=== PATIENT | male | born 1935 | race African-American/Black ===

== ENCOUNTER 2019-11-13 12:30 | Inpatient (IN) | payer MEDICARE, OTHER ==
[~2019-11-13] VITALS: Ht 190.5 cm; Wt 125.2 kg
[2019-11-13] MEDS ORDERED: SODIUM CHLORIDE 0.9% 1,000 ML IV ONE (12:57)
[2019-11-13] MEDS ORDERED: KETOROLAC 30MG/ML VIAL IV STA (12:57)
[2019-11-13] MEDS ORDERED: ONDANSETRON HCL 4MG/2ML INJ IV STA (13:45)
[2019-11-13] MEDS ORDERED: MORPHINE SULFATE 4 MG/ML CPJ (NOT FOR IM USE) IV STA (13:45)
[2019-11-13 14:36] LABS: HEMOGLOBIN. 10.6 g/dL (14.0-18.0); MEAN CORPUSCULAR HEMOGLOBIN 29.3 pg (28.0-32.0); MEAN CORPUSCULAR VOLUME 88.9 fL (80.0-94.0); MEAN PLATELET VOLUME 9.3 fl (7.4-10.4); PLATELET 180 x1000/uL (130-400); RED CELL DISTRIBUTION WIDTH 14.7 % (11.6-14.6)
[2019-11-13 14:44] LABS: CHLORIDE 111 mEq/L (98-107)
[2019-11-13 14:51] LABS: INR 1.1
[2019-11-13 14:57] LABS: PLATELET ESTIMATE NORMAL
[2019-11-13 16:00] VITALS: BP 184/94
[2019-11-13] MEDS ORDERED: GLIP10TA10 MT (16:46)
[2019-11-13] MEDS ORDERED: OLME1TAB82 MT (16:46)
[2019-11-13] MEDS ORDERED: SIMV-46 MT (16:46)
[2019-11-13] MEDS ORDERED: LINA5TAB MT (16:46)
[2019-11-13] MEDS ORDERED: METF-816 MT (16:46)
[2019-11-13] MEDS ORDERED: ALLO100T MT (16:46)
[2019-11-13 16:53] VITALS: BP 134/90
[2019-11-13] MEDS ORDERED: DIPHENHYDRAMINE 50MG/ML VIAL IV PRN (17:15)
[2019-11-13] MEDS ORDERED: DEXTROSE 50% WATER 50ML SYRINGE IV PRN (17:15)
[2019-11-13] MEDS ORDERED: GUAIFENESIN 200MG/10ML SUGAR FREE UDC PO PRN (17:15)
[2019-11-13] MEDS ORDERED: MAGNESIUM/ALUMINUM HYDROXIDE/SIMETHICONE 30ML UDC PO PRN (17:15)
[2019-11-13] MEDS ORDERED: CLONIDINE 0.1MG TABLET PO PRN (17:15)
[2019-11-13] MEDS ORDERED: ACETAMINOPHEN 325MG TABLET PO PRN (17:15)
[2019-11-13] MEDS: BLOOD SUGAR DIAGNOSTIC STRIP TEST SCH ×2 (17:48→21:48)
[2019-11-13] MEDS: INSULIN LISPRO 100 UNITS/ML SUBCUT SCH ×2 (17:48→21:35)
[2019-11-13] MEDS ORDERED: BRIM5DRO EACHEYE (19:25)
[2019-11-13] MEDS ORDERED: XALAO EACHEYE (19:25)
[2019-11-13 20:00] VITALS: BP 137/78
[2019-11-13] MEDS: HYDROMORPHONE HCL/PF 2MG/ML CPJ IV PRN (21:48)
[2019-11-14] VITALS: BP 127/65
[2019-11-14] MEDS: DEXT 5%/0.45% NACL 1000ML 1,000 ML IV SCH ×2 (01:08→21:01)
[2019-11-14] MEDS: SODIUM CHLORIDE 0.9% INJ 3ML FLUSH IVF SCH ×4 (01:24→21:16)
[2019-11-14 04:00] VITALS: BP 124/67
[2019-11-14] MEDS: BLOOD SUGAR DIAGNOSTIC STRIP TEST SCH ×4 (07:20→21:01)
[2019-11-14] MEDS: INSULIN LISPRO 100 UNITS/ML SUBCUT SCH ×4 (07:50→21:00)
[2019-11-14 08:00] VITALS: BP 150/68
[2019-11-14] MEDS: FAMOTIDINE 20MG/2ML VIAL IV SCH (09:46)
[2019-11-14 12:00] VITALS: BP 121/70
[2019-11-14] MEDS: HYDROMORPHONE HCL/PF 2MG/ML CPJ IV PRN (14:02)
[2019-11-14] MEDS: BRIMONIDINE 0.2% OPHTH DROPS 5ML BOTHEYE SCH ×2 (14:03→21:16)
[2019-11-14 16:00] VITALS: BP 152/81
[2019-11-14 20:00] VITALS: BP 158/60
[2019-11-14] MEDS: LATANOPROST 0.005% OPHTH DROPS 2.5ML BOTHEYE SCH (21:01)
[2019-11-15] VITALS: BP 155/77
[2019-11-15 04:00] VITALS: BP 154/80
[2019-11-15] MEDS: SODIUM CHLORIDE 0.9% INJ 3ML FLUSH IVF SCH ×2 (05:34→14:42)
[2019-11-15] MEDS: BRIMONIDINE 0.2% OPHTH DROPS 5ML BOTHEYE SCH ×2 (05:34→14:42)
[2019-11-15] MEDS ORDERED: BUPIVACAINE HCL/PF 0.25% (2.5MG/ML) 10ML ONE (05:47)
[2019-11-15] MEDS ORDERED: VANCOMYCIN HCL 500 MG/VIAL ONE (05:48)
[2019-11-15] MEDS: BLOOD SUGAR DIAGNOSTIC STRIP TEST SCH ×3 (06:41→20:47)
[2019-11-15] MEDS ORDERED: MIDAZOLAM HCL 2 MG/2 ML VIAL ONE (07:03)
[2019-11-15] MEDS ORDERED: ONDANSETRON HCL 4MG/2ML INJ ONE (07:03)
[2019-11-15] MEDS ORDERED: DEXAMETHASONE 4MG/ML 1ML VIAL ONE (07:03)
[2019-11-15] MEDS ORDERED: PROPOFOL 200MG/20ML VIAL IV ONE (07:03)
[2019-11-15] MEDS ORDERED: FENTANYL CITRATE/PF 50MCG/ML 2ML VIAL ONE (07:03)
[2019-11-15] MEDS ORDERED: ROCURONIUM BROMIDE 10MG/ML VIAL 5ML IV ONE (07:27)
[2019-11-15] MEDS: INSULIN LISPRO 100 UNITS/ML SUBCUT SCH ×3 (07:50→21:23)
[2019-11-15] MEDS ORDERED: MEPERIDINE HCL/PF 25MG/ML CPJ IV PRN (08:15)
[2019-11-15] MEDS ORDERED: ONDANSETRON HCL 4MG/2ML INJ IV PRN (08:15)
[2019-11-15] MEDS ORDERED: HYDROMORPHONE HCL/PF 2MG/ML CPJ IV PRN ×2 (08:15→18:30)
[2019-11-15] MEDS ORDERED: LABETALOL 5MG/ML SYR 20 MG/4 ML SYRINGE IV PRN (08:15)
[2019-11-15] MEDS ORDERED: GLYCOPYRROLATE 0.2 MG/ML 2ML VIAL ONE (08:23)
[2019-11-15] MEDS ORDERED: NEOSTIGMINE METHYLSULFATE 1MG/ML 10 ML VIAL ONE (08:23)
[2019-11-15] MEDS ORDERED: BISACODYL 10MG SUPP PR PRN (08:30)
[2019-11-15] MEDS ORDERED: HYDROCODONE/ACETAMINOPHEN 5/325MG TABLET PO PRN (08:30)
[2019-11-15] MEDS ORDERED: EPHEDRINE SULFATE 50MG/ML VIAL ONE (08:47)
[2019-11-15] MEDS ORDERED: SODIUM CHLORIDE 0.9% 10ML VIAL ONE (08:47)
[2019-11-15] MEDS: DOCUSATE SODIUM 250MG CAPSULE PO SCH (09:00)
[2019-11-15] MEDS: FAMOTIDINE 20MG/2ML VIAL IV SCH (09:00)
[2019-11-15] MEDS: CEFAZOLIN 2,000 MG in DEXT 5% WATER 100 ML IV SCH ×2 (10:00→17:34)
[2019-11-15] MEDS ORDERED: POLYETHYLENE GLYCOL 3350 (17GM) 1 DOSE PACK PO SCH (10:45)
[2019-11-15 12:00] VITALS: BP 157/90
[2019-11-15] MEDS: HYDROMORPHONE HCL/PF 2MG/ML CPJ IV PRN (13:29)
[2019-11-15 16:00] VITALS: BP 164/85
[2019-11-15] MEDS ORDERED: DEXTROSE 50% WATER 50ML SYRINGE IV PRN (18:15)
[2019-11-15] MEDS: ONDANSETRON HCL 4MG/2ML INJ IV PRN (18:29)
[2019-11-15 20:00] VITALS: BP 155/87
[2019-11-15] MEDS ORDERED: BISACODYL 10MG SUPP PR NR (20:30)
[2019-11-15] MEDS: LATANOPROST 0.005% OPHTH DROPS 2.5ML BOTHEYE SCH (20:47)
[2019-11-16] VITALS: BP 124/69
[2019-11-16] MEDS: CEFAZOLIN 2,000 MG in DEXT 5% WATER 100 ML IV SCH ×4 (02:37→23:41)
[2019-11-16] MEDS: ONDANSETRON HCL 4MG/2ML INJ IV PRN (03:11)
[2019-11-16 04:00] VITALS: BP 127/77
[2019-11-16] MEDS: DEXT 5%/0.45% NACL 1000ML 1,000 ML IV SCH (04:58)
[2019-11-16] MEDS: BLOOD SUGAR DIAGNOSTIC STRIP TEST SCH ×4 (06:20→21:58)
[2019-11-16] MEDS: DOCUSATE SODIUM 250MG CAPSULE PO SCH (09:00)
[2019-11-16] MEDS: PANTOPRAZOLE SODIUM 40 MG/VIAL IV SCH (09:00)
[2019-11-16] MEDS: INSULIN LISPRO 100 UNITS/ML SUBCUT SCH ×4 (11:47→21:00)
[2019-11-16 12:00] VITALS: BP 109/63
[2019-11-16 13:42] LABS: BASOPHILS % 0.5 % (0.0-2.0); HEMATOCRIT. 31.2 % (42.0-52.0); HEMOGLOBIN. 10.1 g/dL (14.0-18.0); LYMPHOCYTES % 7.1 % (20.0-50.0); MEAN CORPUSCULAR HEMOGLOBIN 29.1 pg (28.0-32.0); MEAN CORPUSCULAR VOLUME 89.7 fL (80.0-94.0); MEAN PLATELET VOLUME 9.4 fl (7.4-10.4); NEUTROPHILS % 84.4 % (40.0-76.0); PLATELET 168 x1000/uL (130-400); RED BLOOD CELL COUNT 3.48 mill/uL (4.7-6.1)
[2019-11-16 13:48] LABS: CHLORIDE 109 mEq/L (98-107)
[2019-11-16] MEDS: IPRATROPIUM/ALBUTEROL 0.5-3(2.5)MG/3ML NEB HHN SCH ×2 (15:26→21:24)
[2019-11-16 16:00] VITALS: BP 122/57
[2019-11-16] MEDS ORDERED: POTASSIUM CHLORIDE INJ 40 MEQ in DEXT 5% WATER 500 ML IV ONE (16:00)
[2019-11-16 20:00] VITALS: BP 114/68
[2019-11-16] MEDS: LATANOPROST 0.005% OPHTH DROPS 2.5ML BOTHEYE SCH (20:51)
[2019-11-17] VITALS (44 sets, daily range): BP systolic 85–168; BP diastolic 44–110
[2019-11-17] MEDS: IPRATROPIUM/ALBUTEROL 0.5-3(2.5)MG/3ML NEB HHN SCH ×5 (01:45→20:15)
[2019-11-17] MEDS: CEFAZOLIN 2,000 MG in DEXT 5% WATER 100 ML IV SCH ×2 (01:52→11:35)
[2019-11-17] MEDS: BLOOD SUGAR DIAGNOSTIC STRIP TEST SCH ×4 (07:37→21:11)
[2019-11-17] MEDS: PANTOPRAZOLE SODIUM 40 MG/VIAL IV SCH (08:51)
[2019-11-17] MEDS: DOCUSATE SODIUM 250MG CAPSULE PO SCH (09:00)
[2019-11-17] MEDS: INSULIN LISPRO 100 UNITS/ML SUBCUT SCH ×4 (09:20→22:01)
[2019-11-17] MEDS ORDERED: SODIUM CHLORIDE 0.9% 500 ML IV ONE ×2 (10:15→12:15)
[2019-11-17 10:52] LABS: BG BASE EXCESS -4.1 mmol/L (-2.0-2.0); BG CARBOXYHEMOGLOBIN 0.3 % (0.5-1.5); BG DEOXYHEMOGLOBIN 6.6 % (0.0-5.0); BG FRACTION INSPIRED OXYGEN 36; BG HCO3 ACT 19.5 mmol/L (22.0-26.0); BG METHEMOGLOBIN 0.1 % (0.0-1.5); BG OXYGEN SATURATION 93.4 % (92.0-98.5); BG PCO2 30.6 mmHg (35.0-45.0); BG PH 7.423 (7.350-7.450); BG PO2 75.9 mmHg (75.0-100.0); BG SAMPLE SITE LEFT BRACHIAL; BG TOTAL HEMOGLOBIN 9.8 g/dL (12.0-18.0); BG VENT MODE NASAL CANNULA
[2019-11-17] MEDS: DEXT 5%/0.45% NACL 1000ML 1,000 ML IV SCH ×3 (11:35→18:59)
[2019-11-17] MEDS ORDERED: POTASSIUM CHLORIDE 20MEQ TABLET SR PO NR ×2 (11:45→15:45)
[2019-11-17 12:01] LABS: BG BASE EXCESS -1.8 mmol/L (-2.0-2.0); BG CARBOXYHEMOGLOBIN 0.3 % (0.5-1.5); BG DEOXYHEMOGLOBIN 6.2 % (0.0-5.0); BG FRACTION INSPIRED OXYGEN 40; BG HCO3 ACT 21.8 mmol/L (22.0-26.0); BG METHEMOGLOBIN 0.1 % (0.0-1.5); BG OXYGEN SATURATION 93.8 % (92.0-98.5); BG OXYHEMOGLOBIN 93.4 % (94.0-97.0); BG PCO2 32.7 mmHg (35.0-45.0); BG PH 7.442 (7.350-7.450); BG PO2 76.6 mmHg (75.0-100.0); BG SAMPLE SITE RIGHT BRACHIAL; BG VENT MODE NASAL CANNULA
[2019-11-17] MEDS ORDERED: ENOXAPARIN 40MG/0.4ML SYR SUBCUT SCH (15:00)
[2019-11-17] MEDS: ASPIRIN 81MG TABLET PO SCH (15:01)
[2019-11-17] MEDS: DILTIAZEM HCL 60MG TABLET PO SCH ×2 (15:02→21:11)
[2019-11-17 15:19] LABS: BASOPHILS % 0.3 % (0.0-2.0); EOSINOPHILS % 0.1 % (0.0-5.0); HEMATOCRIT. 29.7 % (42.0-52.0); HEMOGLOBIN. 9.7 g/dL (14.0-18.0); LYMPHOCYTES % 9.9 % (20.0-50.0); MEAN CORPUSCULAR HEMOGLOBIN 29.4 pg (28.0-32.0); MEAN PLATELET VOLUME 9.7 fl (7.4-10.4); MONOCYTES % 10.3 % (2.0-8.0); NEUTROPHILS % 79.4 % (40.0-76.0); PLATELET 149 x1000/uL (130-400); RED CELL DISTRIBUTION WIDTH 15.3 % (11.6-14.6)
[2019-11-17 15:25] LABS: PHOSPHORUS 3.1 mg/dL (2.5-4.9)
[2019-11-17] MEDS: LATANOPROST 0.005% OPHTH DROPS 2.5ML BOTHEYE SCH (21:11)
[2019-11-17] MEDS ORDERED: DILTIAZEM HCL 60MG TABLET PO SCH (22:00)
[2019-11-18] VITALS (69 sets, daily range): BP systolic 101–157; BP diastolic 47–116
[2019-11-18] MEDS: IPRATROPIUM/ALBUTEROL 0.5-3(2.5)MG/3ML NEB HHN SCH ×5 (01:58→20:53)
[2019-11-18] MEDS: DEXT 5%/0.45% NACL 1000ML 1,000 ML IV SCH ×2 (05:11→05:12)
[2019-11-18] MEDS: DILTIAZEM HCL 60MG TABLET PO SCH ×3 (05:36→21:01)
[2019-11-18 06:19] LABS: BASOPHILS % 0.6 % (0.0-2.0); EOSINOPHILS % 1.5 % (0.0-5.0); HEMATOCRIT. 28.1 % (42.0-52.0); HEMOGLOBIN. 9.4 g/dL (14.0-18.0); LYMPHOCYTES % 12.9 % (20.0-50.0); MEAN CORPUSCULAR HEMOGLOBIN 29.8 pg (28.0-32.0); MEAN CORPUSCULAR VOLUME 89.1 fL (80.0-94.0); MEAN PLATELET VOLUME 9.8 fl (7.4-10.4); MONOCYTES % 10.7 % (2.0-8.0); NEUTROPHILS % 74.3 % (40.0-76.0); PLATELET 147 x1000/uL (130-400); RED BLOOD CELL COUNT 3.16 mill/uL (4.7-6.1); RED CELL DISTRIBUTION WIDTH 14.9 % (11.6-14.6)
[2019-11-18 06:21] LABS: CHLORIDE 112 mEq/L (98-107)
[2019-11-18 06:26] LABS: PHOSPHORUS 2.1 mg/dL (2.5-4.9)
[2019-11-18] MEDS: BLOOD SUGAR DIAGNOSTIC STRIP TEST SCH ×4 (08:00→21:01)
[2019-11-18] MEDS: INSULIN LISPRO 100 UNITS/ML SUBCUT SCH ×4 (08:13→21:25)
[2019-11-18] MEDS ORDERED: MAGNESIUM 1 G PREMIX 100 ML IV NR (09:00)
[2019-11-18] MEDS ORDERED: POTASSIUM CHLORIDE INJ 40 MEQ in DEXT 5% WATER 250 ML IV NR (09:30)
[2019-11-18] MEDS: PANTOPRAZOLE SODIUM 40 MG/VIAL IV SCH (10:39)
[2019-11-18] MEDS: DOCUSATE SODIUM 250MG CAPSULE PO SCH (10:39)
[2019-11-18] MEDS: ASPIRIN 81MG TABLET PO SCH (10:40)
[2019-11-18] MEDS: INSULIN GLARGINE UD 100 UNITS/ML SYR SUBCUT SCH (10:41)
[2019-11-18] MEDS: ENOXAPARIN 120MG/0.8ML SYR SUBCUT SCH ×2 (11:45→21:00)
[2019-11-18 12:32] LABS: CLARITY URINE CLEAR (CLEAR); COLOR URINE YELLOW (YELLOW); KETONES URINE NEGATIVE (NEGATIVE); LEUKOCYTE ESTERASE URINE NEGATIVE (NEGATIVE); NITRITE URINE NEGATIVE (NEGATIVE); OCCULT BLOOD URINE 2+ (NEGATIVE); PH URINE 5.5 (4.5-8.0); PROTEIN URINE 1+ (NEGATIVE); SPECIFIC GRAVITY URINE 1.014 (1.005-1.030); UROBILINOGEN URINE 0.2 E.U./dL (0.2-1.0)
[2019-11-18] MEDS: ACETYLCYSTEINE 100MG/ML 10% VIAL 4ML INH SCH (13:08)
[2019-11-18] MEDS: METRONIDAZOLE 500 MG PREMIX 100 ML IV SCH ×2 (13:23→21:00)
[2019-11-18] MEDS: CEFEPIME 1,000 MG in DEXTROSE 5% WATER 50 ML IV SCH ×2 (14:35→23:42)
[2019-11-18] MEDS ORDERED: NA PHOS,M-B/NA PHOS,DI-BA ENEMA 118ML PR NR (16:15)
[2019-11-18] MEDS ORDERED: POTASSIUM PHOS M BASIC D BASIC IV SCH (17:30)
[2019-11-18] MEDS ORDERED: WATER IV SCH (17:30)
[2019-11-18] MEDS ORDERED: DEXT 5% IV SCH (17:30)
[2019-11-18 20:40] LABS: CHLORIDE 116 mEq/L (98-107)
[2019-11-18 20:46] LABS: PHOSPHORUS 1.6 mg/dL (2.5-4.9)
[2019-11-18 20:48] LABS: HEMATOCRIT 28.6 % (42.0-52.0); HEMOGLOBIN 9.4 g/dL (14.0-18.0); MEAN CORPUSCULAR HEMOGLOBIN 29.6 pg (28.0-32.0); MEAN CORPUSCULAR VOLUME 89.6 fL (80.0-94.0); PLATELET 161 x1000/uL (130-400); RED BLOOD CELL COUNT 3.19 mill/uL (4.7-6.1); RED CELL DISTRIBUTION WIDTH 15.3 % (11.6-14.6)
[2019-11-18] MEDS: LATANOPROST 0.005% OPHTH DROPS 2.5ML BOTHEYE SCH (21:00)
[2019-11-18 23:45] LABS: PHOSPHORUS 2.1 mg/dL (2.5-4.9)
[2019-11-19] VITALS (33 sets, daily range): BP systolic 82–181; BP diastolic 37–118
[2019-11-19] MEDS: DEXT 5%/0.45% NACL 1000ML 1,000 ML IV SCH (00:20)
[2019-11-19] MEDS: ACETYLCYSTEINE 100MG/ML 10% VIAL 4ML INH SCH ×3 (00:58→14:41)
[2019-11-19] MEDS: IPRATROPIUM/ALBUTEROL 0.5-3(2.5)MG/3ML NEB HHN SCH ×6 (00:58→20:40)
[2019-11-19] MEDS ORDERED: POTASSIUM CHLORIDE INJ 40 MEQ in DEXT 5% WATER 250 ML IV NR (02:00)
[2019-11-19] MEDS: METRONIDAZOLE 500 MG PREMIX 100 ML IV SCH ×3 (05:22→20:49)
[2019-11-19] MEDS: DILTIAZEM HCL 60MG TABLET PO SCH ×3 (05:49→21:03)
[2019-11-19 05:52] LABS: BASOPHILS % 0.4 % (0.0-2.0); CHLORIDE 117 mEq/L (98-107); EOSINOPHILS % 1.2 % (0.0-5.0); HEMATOCRIT. 27.9 % (42.0-52.0); HEMOGLOBIN. 9.2 g/dL (14.0-18.0); LYMPHOCYTES % 10.7 % (20.0-50.0); MEAN CORPUSCULAR HEMOGLOBIN 29.9 pg (28.0-32.0); MEAN CORPUSCULAR VOLUME 90.4 fL (80.0-94.0); MEAN PLATELET VOLUME 10.1 fl (7.4-10.4); MONOCYTES % 8.9 % (2.0-8.0); NEUTROPHILS % 78.8 % (40.0-76.0); PLATELET 162 x1000/uL (130-400); RED BLOOD CELL COUNT 3.09 mill/uL (4.7-6.1); RED CELL DISTRIBUTION WIDTH 15.3 % (11.6-14.6)
[2019-11-19 05:58] LABS: PHOSPHORUS 2.1 mg/dL (2.5-4.9)
[2019-11-19] MEDS: BLOOD SUGAR DIAGNOSTIC STRIP TEST SCH ×4 (08:19→20:57)
[2019-11-19] MEDS: ASPIRIN 81MG TABLET PO SCH (08:45)
[2019-11-19] MEDS: ENOXAPARIN 120MG/0.8ML SYR SUBCUT SCH ×2 (08:45→21:02)
[2019-11-19] MEDS: DOCUSATE SODIUM 250MG CAPSULE PO SCH (08:45)
[2019-11-19] MEDS: PANTOPRAZOLE SODIUM 40 MG/VIAL IV SCH (08:45)
[2019-11-19] MEDS: INSULIN LISPRO 100 UNITS/ML SUBCUT SCH ×4 (08:46→21:09)
[2019-11-19] MEDS: INSULIN GLARGINE UD 100 UNITS/ML SYR SUBCUT SCH (10:06)
[2019-11-19] MEDS ORDERED: CLONIDINE 0.1MG TABLET PO PRN (10:45)
[2019-11-19] MEDS ORDERED: BISACODYL 10MG SUPP PR PRN (13:00)
[2019-11-19] MEDS ORDERED: NA PHOS,M-B/NA PHOS,DI-BA ENEMA 118ML PR NR (13:00)
[2019-11-19] MEDS: CEFEPIME 1,000 MG in DEXTROSE 5% WATER 50 ML IV SCH (13:45)
[2019-11-19] MEDS ORDERED: POTASSIUM PHOS,M-BASIC-D-BASIC 15 MMOL in DEXT 5% WATER 245 ML IV NR (14:00)
[2019-11-19] MEDS ORDERED: DEXT 5%/0.45% NACL KCL 40MEQ/L 1,000 ML IV SCH (14:00)
[2019-11-19] MEDS: MORPHINE SULFATE 2 MG/ML CPJ (NOT FOR IM USE) IV PRN (14:24)
[2019-11-19] MEDS: SILDENAFIL CITRATE 20MG TABLET PO SCH ×2 (14:50→21:03)
[2019-11-19] MEDS: LATANOPROST 0.005% OPHTH DROPS 2.5ML BOTHEYE SCH (20:49)
[2019-11-20] VITALS (27 sets, daily range): BP systolic 75–139; BP diastolic 36–73
[2019-11-20] MEDS: IPRATROPIUM/ALBUTEROL 0.5-3(2.5)MG/3ML NEB HHN SCH ×5 (00:25→21:52)
[2019-11-20] MEDS: ACETYLCYSTEINE 100MG/ML 10% VIAL 4ML INH SCH ×3 (00:25→16:07)
[2019-11-20] MEDS: METRONIDAZOLE 500 MG PREMIX 100 ML IV SCH ×3 (04:20→20:48)
[2019-11-20] MEDS: DILTIAZEM HCL 60MG TABLET PO SCH ×3 (06:00→21:54)
[2019-11-20] MEDS: SILDENAFIL CITRATE 20MG TABLET PO SCH ×3 (06:00→21:53)
[2019-11-20 08:01] LABS: BASOPHILS % 0.3 % (0.0-2.0); EOSINOPHILS % 1.1 % (0.0-5.0); HEMATOCRIT. 30.6 % (42.0-52.0); HEMOGLOBIN. 9.9 g/dL (14.0-18.0); LYMPHOCYTES % 13.6 % (20.0-50.0); MEAN CORPUSCULAR HEMOGLOBIN 29.4 pg (28.0-32.0); MEAN CORPUSCULAR VOLUME 90.6 fL (80.0-94.0); MEAN PLATELET VOLUME 9.4 fl (7.4-10.4); MONOCYTES % 10.3 % (2.0-8.0); NEUTROPHILS % 74.7 % (40.0-76.0); PLATELET 206 x1000/uL (130-400); RED BLOOD CELL COUNT 3.38 mill/uL (4.7-6.1); RED CELL DISTRIBUTION WIDTH 15.1 % (11.6-14.6)
[2019-11-20] MEDS: BLOOD SUGAR DIAGNOSTIC STRIP TEST SCH ×4 (08:23→20:25)
[2019-11-20] MEDS: PANTOPRAZOLE SODIUM 40 MG/VIAL IV SCH (08:27)
[2019-11-20] MEDS: DOCUSATE SODIUM 250MG CAPSULE PO SCH (08:28)
[2019-11-20] MEDS: ENOXAPARIN 120MG/0.8ML SYR SUBCUT SCH ×2 (08:28→21:52)
[2019-11-20] MEDS: ASPIRIN 81MG TABLET PO SCH (08:30)
[2019-11-20] MEDS: INSULIN LISPRO 100 UNITS/ML SUBCUT SCH ×4 (08:32→20:26)
[2019-11-20 08:43] LABS: CHLORIDE 115 mEq/L (98-107)
[2019-11-20 08:50] LABS: PHOSPHORUS 3.3 mg/dL (2.5-4.9)
[2019-11-20] MEDS: INSULIN GLARGINE UD 100 UNITS/ML SYR SUBCUT SCH (11:20)
[2019-11-20] MEDS: CEFEPIME 1,000 MG in DEXTROSE 5% WATER 50 ML IV SCH ×3 (13:57)
[2019-11-20] MEDS: DEXT 5%/0.45% NACL KCL 20MEQ/L 1,000 ML IV SCH (13:59)
[2019-11-20] MEDS: LATANOPROST 0.005% OPHTH DROPS 2.5ML BOTHEYE SCH (21:51)
[2019-11-21] VITALS: BP 138/57
[2019-11-21] MEDS: IPRATROPIUM/ALBUTEROL 0.5-3(2.5)MG/3ML NEB HHN SCH ×6 (01:05→19:58)
[2019-11-21] MEDS: ACETYLCYSTEINE 100MG/ML 10% VIAL 4ML INH SCH ×3 (01:06→16:34)
[2019-11-21] MEDS: CEFEPIME 1,000 MG in DEXTROSE 5% WATER 50 ML IV SCH ×3 (02:42→23:50)
[2019-11-21] MEDS: METRONIDAZOLE 500 MG PREMIX 100 ML IV SCH ×3 (03:45→20:41)
[2019-11-21 04:00] VITALS: BP 115/65
[2019-11-21] MEDS: SILDENAFIL CITRATE 20MG TABLET PO SCH ×3 (05:33→21:21)
[2019-11-21] MEDS: DILTIAZEM HCL 60MG TABLET PO SCH (05:34)
[2019-11-21 06:27] LABS: BASOPHILS % 0.3 % (0.0-2.0); EOSINOPHILS % 0.7 % (0.0-5.0); HEMATOCRIT. 25.9 % (42.0-52.0); HEMOGLOBIN. 8.4 g/dL (14.0-18.0); LYMPHOCYTES % 12.3 % (20.0-50.0); MEAN CORPUSCULAR HEMOGLOBIN 29.1 pg (28.0-32.0); MEAN CORPUSCULAR VOLUME 89.5 fL (80.0-94.0); MEAN PLATELET VOLUME 9.4 fl (7.4-10.4); MONOCYTES % 11.1 % (2.0-8.0); NEUTROPHILS % 75.6 % (40.0-76.0); PLATELET 210 x1000/uL (130-400); RED CELL DISTRIBUTION WIDTH 14.9 % (11.6-14.6)
[2019-11-21] MEDS: BLOOD SUGAR DIAGNOSTIC STRIP TEST SCH ×4 (06:39→20:59)
[2019-11-21 06:52] LABS: PHOSPHORUS 4.1 mg/dL (2.5-4.9)
[2019-11-21] MEDS: INSULIN LISPRO 100 UNITS/ML SUBCUT SCH ×4 (07:14→20:59)
[2019-11-21 08:00] VITALS: BP 118/51
[2019-11-21] MEDS: DOCUSATE SODIUM 250MG CAPSULE PO SCH (09:34)
[2019-11-21] MEDS: DEXT 5%/0.45% NACL KCL 20MEQ/L 1,000 ML IV SCH (09:34)
[2019-11-21] MEDS: PANTOPRAZOLE SODIUM 40 MG/VIAL IV SCH (09:34)
[2019-11-21] MEDS: ASPIRIN 81MG TABLET PO SCH (09:34)
[2019-11-21] MEDS: ENOXAPARIN 120MG/0.8ML SYR SUBCUT SCH ×2 (09:35→20:43)
[2019-11-21] MEDS ORDERED: KCL 20MEQ/100ML PREMIX 100 ML IV SCH (11:30)
[2019-11-21] MEDS ORDERED: DEXT 5% WATER + KCL 40MEQ/L 1,000 ML IV SCH (11:30)
[2019-11-21] MEDS: INSULIN GLARGINE UD 100 UNITS/ML SYR SUBCUT SCH (11:45)
[2019-11-21 12:00] VITALS: BP 116/63
[2019-11-21] MEDS: POTASSIUM CHLORIDE INJ 40 MEQ in DEXTROSE 5% WATER 1,000 ML IV SCH (15:01)
[2019-11-21] MEDS: DILTIAZEM HCL 30MG TABLET PO SCH ×2 (15:51→21:20)
[2019-11-21 16:00] VITALS: BP 116/59
[2019-11-21 20:26] VITALS: BP 124/63
[2019-11-21] MEDS: LATANOPROST 0.005% OPHTH DROPS 2.5ML BOTHEYE SCH (20:42)
[2019-11-22 00:02] VITALS: BP 112/48
[2019-11-22] MEDS: ACETYLCYSTEINE 100MG/ML 10% VIAL 4ML INH SCH ×3 (00:13→14:00)
[2019-11-22] MEDS: IPRATROPIUM/ALBUTEROL 0.5-3(2.5)MG/3ML NEB HHN SCH ×6 (00:13→21:08)
[2019-11-22 04:00] VITALS: BP 113/64
[2019-11-22] MEDS: METRONIDAZOLE 500 MG PREMIX 100 ML IV SCH ×2 (04:15→11:57)
[2019-11-22] MEDS: SILDENAFIL CITRATE 20MG TABLET PO SCH ×3 (05:48→22:20)
[2019-11-22] MEDS: DILTIAZEM HCL 30MG TABLET PO SCH ×3 (05:49→22:20)
[2019-11-22] MEDS: BLOOD SUGAR DIAGNOSTIC STRIP TEST SCH ×4 (06:41→21:00)
[2019-11-22 08:00] VITALS: BP 120/69
[2019-11-22 08:24] LABS: BASOPHILS % 2.7 % (0.0-2.0); EOSINOPHILS % 1.6 % (0.0-5.0); HEMATOCRIT. 25.4 % (42.0-52.0); HEMOGLOBIN. 8.4 g/dL (14.0-18.0); LYMPHOCYTES % 11.5 % (20.0-50.0); MEAN CORPUSCULAR HEMOGLOBIN 29.6 pg (28.0-32.0); MEAN CORPUSCULAR VOLUME 89.5 fL (80.0-94.0); MEAN PLATELET VOLUME 8.3 fl (7.4-10.4); MONOCYTES % 10.7 % (2.0-8.0); NEUTROPHILS % 73.5 % (40.0-76.0); PLATELET 243 x1000/uL (130-400); RED BLOOD CELL COUNT 2.84 mill/uL (4.7-6.1); RED CELL DISTRIBUTION WIDTH 15.3 % (11.6-14.6)
[2019-11-22 08:37] LABS: CHLORIDE 114 mEq/L (98-107)
[2019-11-22 08:42] LABS: PHOSPHORUS 3.7 mg/dL (2.5-4.9)
[2019-11-22] MEDS: ENOXAPARIN 120MG/0.8ML SYR SUBCUT SCH ×2 (09:55→22:27)
[2019-11-22] MEDS: DOCUSATE SODIUM 250MG CAPSULE PO SCH (09:55)
[2019-11-22] MEDS: PANTOPRAZOLE SODIUM 40 MG/VIAL IV SCH (09:55)
[2019-11-22] MEDS: ASPIRIN 81MG TABLET PO SCH (09:55)
[2019-11-22] MEDS: INSULIN LISPRO 100 UNITS/ML SUBCUT SCH ×4 (09:56→22:26)
[2019-11-22] MEDS: MORPHINE SULFATE 2 MG/ML CPJ (NOT FOR IM USE) IV PRN ×2 (10:09→16:05)
[2019-11-22] MEDS: INSULIN GLARGINE UD 100 UNITS/ML SYR SUBCUT SCH (10:10)
[2019-11-22] MEDS ORDERED: BISACODYL 10MG SUPP PR SCH (11:00)
[2019-11-22] MEDS ORDERED: POTASSIUM CHLORIDE 20MEQ/PACKET PO SCH (11:00)
[2019-11-22 12:00] VITALS: BP 122/61
[2019-11-22] MEDS ORDERED: MAGNESIUM 2 G PREMIX 50 ML IV SCH (12:00)
[2019-11-22] MEDS: CEFEPIME 1,000 MG in DEXTROSE 5% WATER 50 ML IV SCH (13:28)
[2019-11-22] MEDS: POTASSIUM CHLORIDE INJ 40 MEQ in DEXTROSE 5% WATER 1,000 ML IV SCH (13:28)
[2019-11-22 16:00] VITALS: BP 133/61
[2019-11-22] MEDS ORDERED: KCL 20MEQ/100ML PREMIX 100 ML IV SCH ×2 (16:00→20:00)
[2019-11-22 20:09] VITALS: BP 129/64
[2019-11-22] MEDS: LATANOPROST 0.005% OPHTH DROPS 2.5ML BOTHEYE SCH (22:21)
[2019-11-23 00:06] VITALS: BP 106/55
[2019-11-23] MEDS: METRONIDAZOLE 500 MG PREMIX 100 ML IV SCH ×4 (01:04→22:23)
[2019-11-23] MEDS: IPRATROPIUM/ALBUTEROL 0.5-3(2.5)MG/3ML NEB HHN SCH ×6 (01:07→21:32)
[2019-11-23] MEDS: ACETYLCYSTEINE 100MG/ML 10% VIAL 4ML INH SCH ×3 (01:07→17:07)
[2019-11-23] MEDS: CEFEPIME 1,000 MG in DEXTROSE 5% WATER 50 ML IV SCH ×2 (03:19→13:00)
[2019-11-23 04:00] VITALS: BP 128/65
[2019-11-23] MEDS: POTASSIUM CHLORIDE INJ 40 MEQ in DEXTROSE 5% WATER 1,000 ML IV SCH ×2 (05:24→05:25)
[2019-11-23] MEDS: SILDENAFIL CITRATE 20MG TABLET PO SCH ×3 (05:58→22:23)
[2019-11-23] MEDS: BLOOD SUGAR DIAGNOSTIC STRIP TEST SCH ×4 (05:58→21:00)
[2019-11-23] MEDS: DILTIAZEM HCL 30MG TABLET PO SCH ×3 (05:58→22:00)
[2019-11-23 06:00] LABS: HEMATOCRIT 23.9 % (42.0-52.0); HEMOGLOBIN 7.9 g/dL (14.0-18.0); MEAN CORPUSCULAR HEMOGLOBIN 29.5 pg (28.0-32.0); MEAN CORPUSCULAR VOLUME 89.3 fL (80.0-94.0); PLATELET 269 x1000/uL (130-400); RED BLOOD CELL COUNT 2.68 mill/uL (4.7-6.1); RED CELL DISTRIBUTION WIDTH 15.4 % (11.6-14.6)
[2019-11-23] MEDS: INSULIN LISPRO 100 UNITS/ML SUBCUT SCH ×4 (07:40→22:25)
[2019-11-23 08:08] VITALS: BP 108/61
[2019-11-23] MEDS: ASPIRIN 81MG TABLET PO SCH (09:18)
[2019-11-23] MEDS: DOCUSATE SODIUM 250MG CAPSULE PO SCH (09:19)
[2019-11-23] MEDS: ENOXAPARIN 120MG/0.8ML SYR SUBCUT SCH (09:19)
[2019-11-23] MEDS: MORPHINE SULFATE 2 MG/ML CPJ (NOT FOR IM USE) IV PRN (09:20)
[2019-11-23] MEDS: PANTOPRAZOLE SODIUM 40 MG/VIAL IV SCH (10:18)
[2019-11-23] MEDS: INSULIN GLARGINE UD 100 UNITS/ML SYR SUBCUT SCH (10:20)
[2019-11-23 12:14] VITALS: BP 120/66
[2019-11-23] MEDS ORDERED: WATER IV SCH (13:00)
[2019-11-23] MEDS ORDERED: POTASSIUM CHLORIDE IV SCH (13:00)
[2019-11-23] MEDS ORDERED: DEXTROSE 5% IV SCH (13:00)
[2019-11-23] MEDS ORDERED: BISACODYL 10MG SUPP PR PRN (16:15)
[2019-11-23 16:22] VITALS: BP 108/57
[2019-11-23 20:32] VITALS: BP 119/55
[2019-11-23] MEDS: LATANOPROST 0.005% OPHTH DROPS 2.5ML BOTHEYE SCH (22:23)
[2019-11-23] MEDS: FAMOTIDINE 40MG TABLET PO SCH (22:23)
[2019-11-24] VITALS (9 sets, daily range): BP systolic 72–129; BP diastolic 44–96
[2019-11-24] MEDS: DEXT 5% WATER + KCL 20MEQ/L 1,000 ML IV SCH ×2 (00:28→03:05)
[2019-11-24] MEDS: IPRATROPIUM/ALBUTEROL 0.5-3(2.5)MG/3ML NEB HHN SCH ×6 (02:00→23:32)
[2019-11-24] MEDS: CEFEPIME 1,000 MG in DEXTROSE 5% WATER 50 ML IV SCH ×2 (03:00→16:03)
[2019-11-24] MEDS: METRONIDAZOLE 500 MG PREMIX 100 ML IV SCH ×3 (04:53→15:16)
[2019-11-24] MEDS: DILTIAZEM HCL 30MG TABLET PO SCH ×3 (06:00→20:40)
[2019-11-24 07:09] LABS: PHOSPHORUS 3.8 mg/dL (2.5-4.9)
[2019-11-24] MEDS: BLOOD SUGAR DIAGNOSTIC STRIP TEST SCH ×4 (07:12→20:41)
[2019-11-24 07:21] LABS: HEMATOCRIT. 23.1 % (42.0-52.0); HEMOGLOBIN. 7.7 g/dL (14.0-18.0); MEAN CORPUSCULAR HEMOGLOBIN 29.6 pg (28.0-32.0); MEAN CORPUSCULAR VOLUME 89.3 fL (80.0-94.0); MEAN PLATELET VOLUME 8.8 fl (7.4-10.4); PLATELET 289 x1000/uL (130-400); RED BLOOD CELL COUNT 2.58 mill/uL (4.7-6.1); RED CELL DISTRIBUTION WIDTH 15.6 % (11.6-14.6)
[2019-11-24] MEDS ORDERED: DIATR MEGLU/DIATRIZOATE SOLN 120ML ONE ×2 (08:37→10:12)
[2019-11-24] MEDS: INSULIN LISPRO 100 UNITS/ML SUBCUT SCH ×3 (10:16→20:41)
[2019-11-24] MEDS: INSULIN GLARGINE UD 100 UNITS/ML SYR SUBCUT SCH (10:16)
[2019-11-24] MEDS: DOCUSATE SODIUM 250MG CAPSULE PO SCH (10:17)
[2019-11-24 14:21] LABS: PLATELET ESTIMATE NORMAL
[2019-11-24] MEDS: FAMOTIDINE 40MG TABLET PO SCH (20:40)
[2019-11-24] MEDS: LATANOPROST 0.005% OPHTH DROPS 2.5ML BOTHEYE SCH (20:41)
[2019-11-25] VITALS (7 sets, daily range): BP systolic 109–144; BP diastolic 61–78
[2019-11-25] MEDS: DEXT 5% WATER + KCL 20MEQ/L 1,000 ML IV SCH ×2 (03:12→13:35)
[2019-11-25] MEDS: CEFEPIME 1,000 MG in DEXTROSE 5% WATER 50 ML IV SCH ×2 (03:12→16:22)
[2019-11-25] MEDS: IPRATROPIUM/ALBUTEROL 0.5-3(2.5)MG/3ML NEB HHN SCH ×5 (04:58→21:10)
[2019-11-25] MEDS: DILTIAZEM HCL 30MG TABLET PO SCH (06:00)
[2019-11-25] MEDS: BLOOD SUGAR DIAGNOSTIC STRIP TEST SCH ×4 (06:01→21:41)
[2019-11-25] MEDS: METRONIDAZOLE 500 MG PREMIX 100 ML IV SCH ×3 (06:31→21:56)
[2019-11-25 06:45] LABS: BASOPHILS % 0.3 % (0.0-2.0); EOSINOPHILS % 0.8 % (0.0-5.0); HEMATOCRIT. 24.9 % (42.0-52.0); HEMOGLOBIN. 8.2 g/dL (14.0-18.0); LYMPHOCYTES % 8.6 % (20.0-50.0); MEAN CORPUSCULAR HEMOGLOBIN 29.4 pg (28.0-32.0); MEAN CORPUSCULAR VOLUME 88.8 fL (80.0-94.0); MEAN PLATELET VOLUME 8.1 fl (7.4-10.4); MONOCYTES % 7.2 % (2.0-8.0); NEUTROPHILS % 83.1 % (40.0-76.0); PLATELET 398 x1000/uL (130-400); RED CELL DISTRIBUTION WIDTH 15.4 % (11.6-14.6)
[2019-11-25 07:03] LABS: PHOSPHORUS 3.9 mg/dL (2.5-4.9)
[2019-11-25] MEDS: INSULIN LISPRO 100 UNITS/ML SUBCUT SCH ×4 (09:31→21:43)
[2019-11-25] MEDS: DOCUSATE SODIUM 250MG CAPSULE PO SCH (09:32)
[2019-11-25] MEDS: INSULIN GLARGINE UD 100 UNITS/ML SYR SUBCUT SCH (10:18)
[2019-11-25] MEDS ORDERED: POTASSIUM CHLORIDE INJ 40 MEQ in DEXT 5% WATER 250 ML IV SCH (11:00)
[2019-11-25] MEDS ORDERED: POTASSIUM CHLORIDE 20MEQ TABLET SR PO SCH (13:15)
[2019-11-25] MEDS ORDERED: POTASSIUM CHLORIDE 20MEQ TABLET SR PO ONE (13:30)
[2019-11-25] MEDS: DILTIAZEM HCL 5MG/ML 5ML VIAL IV PRN (13:34)
[2019-11-25] MEDS ORDERED: BISACODYL 10MG SUPP PR NR (15:00)
[2019-11-25] MEDS: DILTIAZEM HCL 60MG TABLET PO SCH ×2 (15:47→18:32)
[2019-11-25] MEDS: POTASSIUM CHLORIDE INJ 40 MEQ in DEXTROSE 5% WATER 1,000 ML IV SCH (18:44)
[2019-11-25] MEDS: FAMOTIDINE 40MG TABLET PO SCH (21:41)
[2019-11-25] MEDS: LATANOPROST 0.005% OPHTH DROPS 2.5ML BOTHEYE SCH (21:42)
[2019-11-25] MEDS ORDERED: SORBITOL 70% SOLN 30ML PO SCH (23:30)
[2019-11-26] MEDS: IPRATROPIUM/ALBUTEROL 0.5-3(2.5)MG/3ML NEB HHN SCH ×5 (00:39→20:09)
[2019-11-26 00:42] VITALS: BP 121/70
[2019-11-26] MEDS: DILTIAZEM HCL 60MG TABLET PO SCH ×3 (01:01→12:51)
[2019-11-26] MEDS ORDERED: MORPHINE SULFATE 2 MG/ML CPJ (NOT FOR IM USE) IV PRN ×2 (02:00)
[2019-11-26 04:09] VITALS: BP 115/62
[2019-11-26] MEDS ORDERED: SORBITOL 70% SOLN 30ML PO SCH (06:00)
[2019-11-26] MEDS: BLOOD SUGAR DIAGNOSTIC STRIP TEST SCH ×4 (07:00→21:05)
[2019-11-26] MEDS: POTASSIUM CHLORIDE INJ 40 MEQ in DEXTROSE 5% WATER 1,000 ML IV SCH ×2 (07:02→20:05)
[2019-11-26 08:00] VITALS: BP 123/73
[2019-11-26 08:07] LABS: BASOPHILS % 0.5 % (0.0-2.0); EOSINOPHILS % 0.9 % (0.0-5.0); HEMOGLOBIN. 7.2 g/dL (14.0-18.0); LYMPHOCYTES % 8.4 % (20.0-50.0); MEAN CORPUSCULAR HEMOGLOBIN 29.2 pg (28.0-32.0); MEAN CORPUSCULAR VOLUME 89.1 fL (80.0-94.0); MEAN PLATELET VOLUME 8.4 fl (7.4-10.4); MONOCYTES % 6.7 % (2.0-8.0); NEUTROPHILS % 83.5 % (40.0-76.0); PLATELET 405 x1000/uL (130-400); RED BLOOD CELL COUNT 2.46 mill/uL (4.7-6.1); RED CELL DISTRIBUTION WIDTH 15.4 % (11.6-14.6)
[2019-11-26 09:45] LABS: CHLORIDE 114 mEq/L (98-107)
[2019-11-26] MEDS: DOCUSATE SODIUM 250MG CAPSULE PO SCH (09:50)
[2019-11-26] MEDS: BISACODYL 10MG SUPP PR SCH ×2 (09:51→21:46)
[2019-11-26] MEDS: INSULIN GLARGINE UD 100 UNITS/ML SYR SUBCUT SCH (09:54)
[2019-11-26] MEDS: INSULIN LISPRO 100 UNITS/ML SUBCUT SCH ×4 (09:55→21:51)
[2019-11-26 09:59] LABS: PHOSPHORUS 3.3 mg/dL (2.5-4.9)
[2019-11-26 12:00] VITALS: BP 116/71
[2019-11-26] MEDS ORDERED: NA PHOS,M-B/NA PHOS,DI-BA ENEMA 118ML PR NR (15:00)
[2019-11-26 16:44] VITALS: BP 114/69
[2019-11-26] MEDS ORDERED: MINERAL OIL ENEMA 133ML PR NR (18:00)
[2019-11-26 20:00] VITALS: BP 100/64
[2019-11-26] MEDS: METOCLOPRAMIDE HCL 10MG/2ML VIAL IV SCH (20:02)
[2019-11-26] MEDS: DILTIAZEM HCL 30MG TABLET PO SCH ×2 (20:05→21:28)
[2019-11-26] MEDS: LATANOPROST 0.005% OPHTH DROPS 2.5ML BOTHEYE SCH (21:50)
[2019-11-26] MEDS: FAMOTIDINE 40MG TABLET PO SCH (21:50)
[2019-11-27] VITALS (21 sets, daily range): BP systolic 65–128; BP diastolic 35–81
[2019-11-27] MEDS: IPRATROPIUM/ALBUTEROL 0.5-3(2.5)MG/3ML NEB HHN SCH ×5 (00:21→16:26)
[2019-11-27] MEDS: METOCLOPRAMIDE HCL 10MG/2ML VIAL IV SCH ×5 (00:27→23:08)
[2019-11-27] MEDS: BISACODYL 10MG SUPP PR SCH ×7 (02:19→22:50)
[2019-11-27] MEDS: DILTIAZEM HCL 30MG TABLET PO SCH ×5 (05:45→23:10)
[2019-11-27] MEDS: BLOOD SUGAR DIAGNOSTIC STRIP TEST SCH ×4 (07:20→21:56)
[2019-11-27] MEDS: INSULIN LISPRO 100 UNITS/ML SUBCUT SCH ×4 (07:50→21:00)
[2019-11-27 09:25] LABS: BASOPHILS % 0.5 % (0.0-2.0); EOSINOPHILS % 0.6 % (0.0-5.0); HEMOGLOBIN. 7.5 g/dL (14.0-18.0); LYMPHOCYTES % 10.3 % (20.0-50.0); MEAN CORPUSCULAR HEMOGLOBIN 29.2 pg (28.0-32.0); MEAN CORPUSCULAR VOLUME 89.7 fL (80.0-94.0); MEAN PLATELET VOLUME 8.4 fl (7.4-10.4); MONOCYTES % 6.1 % (2.0-8.0); NEUTROPHILS % 82.5 % (40.0-76.0); PLATELET 465 x1000/uL (130-400); RED BLOOD CELL COUNT 2.56 mill/uL (4.7-6.1); RED CELL DISTRIBUTION WIDTH 15.7 % (11.6-14.6)
[2019-11-27] MEDS: DOCUSATE SODIUM 250MG CAPSULE PO SCH (09:27)
[2019-11-27] MEDS: INSULIN GLARGINE UD 100 UNITS/ML SYR SUBCUT SCH (09:27)
[2019-11-27] MEDS: POTASSIUM CHLORIDE INJ 40 MEQ in DEXTROSE 5% WATER 1,000 ML IV SCH ×2 (09:28→23:08)
[2019-11-27 09:37] LABS: CHLORIDE 111 mEq/L (98-107)
[2019-11-27 09:46] LABS: PHOSPHORUS 3.5 mg/dL (2.5-4.9)
[2019-11-27] MEDS ORDERED: NA PHOS,M-B/NA PHOS,DI-BA ENEMA 118ML PR NR (11:04)
[2019-11-27] MEDS ORDERED: KCL 10MEQ/50ML PREMIX 50 ML IV NR (12:00)
[2019-11-27] MEDS: DILTIAZEM HCL 5MG/ML 5ML VIAL IV PRN (15:48)
[2019-11-27] MEDS ORDERED: LORAZEPAM 2MG/ML CPJ ONE (19:21)
[2019-11-27] MEDS ORDERED: DOPAMINE 400MG/250ML PREMIX 250 ML IV PRN (19:30)
[2019-11-27] MEDS: DOPAMINE 400MG/250ML PREMIX 250 ML IV PRN (20:44)
[2019-11-27 21:06] LABS: BG BASE EXCESS -9.2 mmol/L (-2.0-2.0); BG CARBOXYHEMOGLOBIN 0.3 % (0.5-1.5); BG DEOXYHEMOGLOBIN 7.3 % (0.0-5.0); BG FRACTION INSPIRED OXYGEN 100; BG HCO3 ACT 16.1 mmol/L (22.0-26.0); BG METHEMOGLOBIN 0.6 % (0.0-1.5); BG OXYGEN SATURATION 92.6 % (92.0-98.5); BG OXYHEMOGLOBIN 91.8 % (94.0-97.0); BG PCO2 32.5 mmHg (35.0-45.0); BG PH 7.314 (7.350-7.450); BG PO2 76.1 mmHg (75.0-100.0); BG SAMPLE SITE RIGHT BRACHIAL; BG TIDAL VOLUME(mL) 500 mL; BG TOTAL HEMOGLOBIN 7.7 g/dL (12.0-18.0); BG VENT MODE VENT - A/C; BG VENT RATE 12 set
[2019-11-27] MEDS: FAMOTIDINE 40MG TABLET PO SCH (21:52)
[2019-11-27] MEDS: LATANOPROST 0.005% OPHTH DROPS 2.5ML BOTHEYE SCH (21:52)
[2019-11-27] MEDS: PROPOFOL 10MG/ML 100ML 100 ML IV PRN (21:55)
[2019-11-28] VITALS (97 sets, daily range): BP systolic 66–146; BP diastolic 21–94
[2019-11-28] MEDS ORDERED: IPRATROPIUM/ALBUTEROL 0.5-3(2.5)MG/3ML NEB HHN SCH
[2019-11-28] MEDS: IPRATROPIUM/ALBUTEROL 0.5-3(2.5)MG/3ML NEB HHN SCH ×5 (00:57→20:38)
[2019-11-28] MEDS: PROPOFOL 10MG/ML 100ML 100 ML IV PRN ×6 (01:26→23:36)
[2019-11-28] MEDS: BISACODYL 10MG SUPP PR SCH ×2 (01:27→06:01)
[2019-11-28] MEDS: DOPAMINE 400MG/250ML PREMIX 250 ML IV PRN ×2 (03:54→10:19)
[2019-11-28 04:26] LABS: HEMATOCRIT. 24.8 % (42.0-52.0); HEMOGLOBIN. 8.1 g/dL (14.0-18.0); MEAN CORPUSCULAR HEMOGLOBIN 29.4 pg (28.0-32.0); MEAN CORPUSCULAR VOLUME 89.4 fL (80.0-94.0); MEAN PLATELET VOLUME 7.9 fl (7.4-10.4); PLATELET 499 x1000/uL (130-400); RED BLOOD CELL COUNT 2.77 mill/uL (4.7-6.1); RED CELL DISTRIBUTION WIDTH 15.9 % (11.6-14.6)
[2019-11-28] MEDS: DILTIAZEM HCL 30MG TABLET PO SCH (05:09)
[2019-11-28] MEDS: METOCLOPRAMIDE HCL 10MG/2ML VIAL IV SCH ×4 (05:09→23:34)
[2019-11-28] MEDS: BLOOD SUGAR DIAGNOSTIC STRIP TEST SCH ×4 (06:01→23:34)
[2019-11-28] MEDS: INSULIN LISPRO 100 UNITS/ML SUBCUT SCH ×4 (06:03→23:36)
[2019-11-28 06:26] LABS: PLATELET ESTIMATE INCREASED
[2019-11-28] MEDS: DOCUSATE SODIUM 250MG CAPSULE PO SCH (09:00)
[2019-11-28 09:18] LABS: BG BASE EXCESS -5.8 mmol/L (-2.0-2.0); BG CARBOXYHEMOGLOBIN 0.4 % (0.5-1.5); BG DEOXYHEMOGLOBIN 1.7 % (0.0-5.0); BG FRACTION INSPIRED OXYGEN 100; BG HCO3 ACT 18.4 mmol/L (22.0-26.0); BG METHEMOGLOBIN 0.5 % (0.0-1.5); BG OXYGEN SATURATION 98.3 % (92.0-98.5); BG OXYHEMOGLOBIN 97.4 % (94.0-97.0); BG PH 7.377 (7.350-7.450); BG PO2 122.1 mmHg (75.0-100.0); BG SAMPLE SITE RIGHT BRACHIAL; BG TIDAL VOLUME(mL) 500 mL; BG TOTAL HEMOGLOBIN 12.4 g/dL (12.0-18.0); BG VENT MODE VENT - A/C; BG VENT RATE 12 set
[2019-11-28] MEDS: INSULIN GLARGINE UD 100 UNITS/ML SYR SUBCUT SCH (10:18)
[2019-11-28] MEDS: POTASSIUM CHLORIDE INJ 40 MEQ in DEXTROSE 5% WATER 1,000 ML IV SCH (12:33)
[2019-11-28] MEDS: NOREPINEPHRINE 8 MG in DEXT 5% WATER 242 ML IV PRN ×2 (12:35→19:24)
[2019-11-28] MEDS: FAMOTIDINE 40MG TABLET PO SCH (20:26)
[2019-11-28] MEDS: LATANOPROST 0.005% OPHTH DROPS 2.5ML BOTHEYE SCH (20:27)
[2019-11-29] VITALS (86 sets, daily range): BP systolic 70–145; BP diastolic 38–95
[2019-11-29] MEDS: IPRATROPIUM/ALBUTEROL 0.5-3(2.5)MG/3ML NEB HHN SCH ×6 (00:07→20:43)
[2019-11-29] MEDS: POTASSIUM CHLORIDE INJ 40 MEQ in DEXTROSE 5% WATER 1,000 ML IV SCH ×2 (01:53→13:14)
[2019-11-29] MEDS: NOREPINEPHRINE 32 MG in DEXT 5% WATER 468 ML IV PRN (01:54)
[2019-11-29] MEDS: ACETAMINOPHEN 650MG/20.3ML UDC PO PRN ×2 (02:04→17:19)
[2019-11-29] MEDS: METOCLOPRAMIDE HCL 10MG/2ML VIAL IV SCH ×3 (05:20→17:21)
[2019-11-29] MEDS: INSULIN LISPRO 100 UNITS/ML SUBCUT SCH ×3 (05:21→17:20)
[2019-11-29] MEDS: BLOOD SUGAR DIAGNOSTIC STRIP TEST SCH ×3 (05:21→18:50)
[2019-11-29 05:42] LABS: BASOPHILS % 0.4 % (0.0-2.0); EOSINOPHILS % 0.4 % (0.0-5.0); HEMATOCRIT. 22.7 % (42.0-52.0); HEMOGLOBIN. 7.5 g/dL (14.0-18.0); LYMPHOCYTES % 8.1 % (20.0-50.0); MEAN CORPUSCULAR HEMOGLOBIN 29.4 pg (28.0-32.0); MEAN CORPUSCULAR VOLUME 88.8 fL (80.0-94.0); MEAN PLATELET VOLUME 7.9 fl (7.4-10.4); MONOCYTES % 5.6 % (2.0-8.0); NEUTROPHILS % 85.5 % (40.0-76.0); PLATELET 497 x1000/uL (130-400); RED BLOOD CELL COUNT 2.56 mill/uL (4.7-6.1); RED CELL DISTRIBUTION WIDTH 15.8 % (11.6-14.6)
[2019-11-29] MEDS: DOCUSATE SODIUM 250MG CAPSULE PO SCH (09:00)
[2019-11-29] MEDS: INSULIN GLARGINE UD 100 UNITS/ML SYR SUBCUT SCH (09:30)
[2019-11-29 10:22] LABS: CHLORIDE 105 mEq/L (98-107)
[2019-11-29 10:28] LABS: PHOSPHORUS 6.3 mg/dL (2.5-4.9)
[2019-11-29] MEDS: PROPOFOL 10MG/ML 100ML 100 ML IV PRN ×2 (11:30→19:32)
[2019-11-29 12:23] LABS: BG BASE EXCESS -5.4 mmol/L (-2.0-2.0); BG CARBOXYHEMOGLOBIN 0.3 % (0.5-1.5); BG DEOXYHEMOGLOBIN 5.3 % (0.0-5.0); BG FRACTION INSPIRED OXYGEN 60; BG HCO3 ACT 18.3 mmol/L (22.0-26.0); BG METHEMOGLOBIN 0.4 % (0.0-1.5); BG OXYGEN SATURATION 94.7 % (92.0-98.5); BG PCO2 28.6 mmHg (35.0-45.0); BG PH 7.424 (7.350-7.450); BG PO2 74.3 mmHg (75.0-100.0); BG SAMPLE SITE RIGHT RADIAL; BG TIDAL VOLUME(mL) 500 mL; BG TOTAL HEMOGLOBIN 7.4 g/dL (12.0-18.0); BG VENT MODE VENT - A/C; BG VENT RATE 12 set
[2019-11-29] MEDS: DOCUSATE SODIUM SUGAR FREE 100MG/10ML UDC NG SCH (17:19)
[2019-11-29] MEDS: LATANOPROST 0.005% OPHTH DROPS 2.5ML BOTHEYE SCH (22:02)
[2019-11-29] MEDS: FAMOTIDINE 40MG TABLET PO SCH (22:02)
[2019-11-30] VITALS (121 sets, daily range): BP systolic 74–159; BP diastolic 39–94
[2019-11-30] MEDS: BLOOD SUGAR DIAGNOSTIC STRIP TEST SCH ×5 (00:32→23:26)
[2019-11-30] MEDS: METOCLOPRAMIDE HCL 10MG/2ML VIAL IV SCH ×5 (00:32→23:27)
[2019-11-30] MEDS: INSULIN LISPRO 100 UNITS/ML SUBCUT SCH ×5 (00:33→23:27)
[2019-11-30] MEDS: IPRATROPIUM/ALBUTEROL 0.5-3(2.5)MG/3ML NEB HHN SCH ×6 (00:34→20:36)
[2019-11-30] MEDS: PROPOFOL 10MG/ML 100ML 100 ML IV PRN ×2 (01:35→08:22)
[2019-11-30] MEDS: POTASSIUM CHLORIDE INJ 40 MEQ in DEXTROSE 5% WATER 1,000 ML IV SCH ×4 (02:33→18:25)
[2019-11-30 06:01] LABS: BASOPHILS % 0.4 % (0.0-2.0); EOSINOPHILS % 0.6 % (0.0-5.0); HEMATOCRIT. 23.2 % (42.0-52.0); HEMOGLOBIN. 7.9 g/dL (14.0-18.0); LYMPHOCYTES % 11.4 % (20.0-50.0); MEAN CORPUSCULAR HEMOGLOBIN 30.2 pg (28.0-32.0); MEAN CORPUSCULAR VOLUME 88.8 fL (80.0-94.0); MEAN PLATELET VOLUME 8.3 fl (7.4-10.4); MONOCYTES % 6.9 % (2.0-8.0); NEUTROPHILS % 80.7 % (40.0-76.0); PLATELET 446 x1000/uL (130-400); RED BLOOD CELL COUNT 2.61 mill/uL (4.7-6.1); RED CELL DISTRIBUTION WIDTH 16.1 % (11.6-14.6)
[2019-11-30 06:23] LABS: CHLORIDE 104 mEq/L (98-107)
[2019-11-30 06:37] LABS: PHOSPHORUS 6.9 mg/dL (2.5-4.9)
[2019-11-30] MEDS: DOCUSATE SODIUM SUGAR FREE 100MG/10ML UDC NG SCH ×2 (09:00→18:25)
[2019-11-30 09:55] LABS: BG BASE EXCESS -11.9 mmol/L (-2.0-2.0); BG CARBOXYHEMOGLOBIN 0.3 % (0.5-1.5); BG DEOXYHEMOGLOBIN 0.9 % (0.0-5.0); BG FRACTION INSPIRED OXYGEN 60; BG HCO3 ACT 14.4 mmol/L (22.0-26.0); BG METHEMOGLOBIN 0.3 % (0.0-1.5); BG OXYGEN SATURATION 99.1 % (92.0-98.5); BG OXYHEMOGLOBIN 98.5 % (94.0-97.0); BG PCO2 33.9 mmHg (35.0-45.0); BG PH 7.246 (7.350-7.450); BG PO2 188.4 mmHg (75.0-100.0); BG SAMPLE SITE RIGHT BRACHIAL; BG TIDAL VOLUME(mL) 500 mL; BG TOTAL HEMOGLOBIN 9.6 g/dL (12.0-18.0); BG VENT MODE VENT - A/C; BG VENT RATE 12 set
[2019-11-30] MEDS ORDERED: SODIUM BICARBONATE 8.4% 1 MEQ/ML 50ML SYR IV SCH (10:30)
[2019-11-30] MEDS ORDERED: LORAZEPAM 2MG/ML CPJ IV PRN (10:45)
[2019-11-30] MEDS ORDERED: PIPERACILLIN/TAZOBACTAM 3.375 G in DEXT 5% WATER 100 ML IV SCH (10:45)
[2019-11-30] MEDS: INSULIN GLARGINE UD 100 UNITS/ML SYR SUBCUT SCH (10:48)
[2019-11-30] MEDS: PHENYLEPHRINE 40 MG in DEXT 5% WATER 246 ML IV PRN ×2 (11:33→16:32)
[2019-11-30] MEDS: FENTANYL CITRATE/PF 500 MCG in SODIUM CHLORIDE 0.9% 40 ML IV PRN ×2 (11:34→18:30)
[2019-11-30] MEDS: PIPERACILLIN/TAZOBACTAM 2.25 G in DEXTROSE 5% WATER 50 ML IV SCH ×2 (11:34→21:10)
[2019-11-30] MEDS: PHENYLEPHRINE 80 MG in DEXT 5% WATER 492 ML IV PRN ×2 (12:00→20:30)
[2019-11-30] MEDS ORDERED: ALBUMIN HUMAN 25GM/500ML (5%) IV PRN (12:00)
[2019-11-30] MEDS: NOREPINEPHRINE 32 MG in DEXT 5% WATER 468 ML IV PRN (14:54)
[2019-11-30] MEDS: ACETYLCYSTEINE 100MG/ML 10% VIAL 4ML INH SCH (16:40)
[2019-11-30] MEDS ORDERED: LEVETIRACETAM 500 MG in SODIUM CHLORIDE 0.9% 100 ML IV SCH (17:00)
[2019-11-30] MEDS: LEVETIRACETAM 500MG PREMIX 100 ML IV SCH (18:29)
[2019-11-30] MEDS: LATANOPROST 0.005% OPHTH DROPS 2.5ML BOTHEYE SCH (21:10)
[2019-11-30] MEDS: FAMOTIDINE 40MG TABLET PO SCH (21:10)
[2019-12-01] VITALS (101 sets, daily range): BP systolic 79–133; BP diastolic 42–75
[2019-12-01] MEDS: ACETYLCYSTEINE 100MG/ML 10% VIAL 4ML INH SCH ×3 (00:29→16:09)
[2019-12-01] MEDS: IPRATROPIUM/ALBUTEROL 0.5-3(2.5)MG/3ML NEB HHN SCH ×6 (00:29→20:00)
[2019-12-01] MEDS: PIPERACILLIN/TAZOBACTAM 2.25 G in DEXTROSE 5% WATER 50 ML IV SCH ×3 (05:22→21:07)
[2019-12-01] MEDS: METOCLOPRAMIDE HCL 10MG/2ML VIAL IV SCH ×4 (05:22→23:06)
[2019-12-01] MEDS: BLOOD SUGAR DIAGNOSTIC STRIP TEST SCH ×4 (05:23→23:06)
[2019-12-01] MEDS: INSULIN LISPRO 100 UNITS/ML SUBCUT SCH ×4 (05:23→23:06)
[2019-12-01 06:10] LABS: BASOPHILS % 0.3 % (0.0-2.0); EOSINOPHILS % 0.6 % (0.0-5.0); HEMATOCRIT. 24.8 % (42.0-52.0); HEMOGLOBIN. 8.1 g/dL (14.0-18.0); LYMPHOCYTES % 13.6 % (20.0-50.0); MEAN CORPUSCULAR HEMOGLOBIN 29.2 pg (28.0-32.0); MEAN CORPUSCULAR VOLUME 89.3 fL (80.0-94.0); MEAN PLATELET VOLUME 8.2 fl (7.4-10.4); MONOCYTES % 8.5 % (2.0-8.0); PLATELET 369 x1000/uL (130-400); RED BLOOD CELL COUNT 2.78 mill/uL (4.7-6.1); RED CELL DISTRIBUTION WIDTH 16.3 % (11.6-14.6)
[2019-12-01 06:28] LABS: CHLORIDE 103 mEq/L (98-107)
[2019-12-01 06:34] LABS: PHOSPHORUS 6.2 mg/dL (2.5-4.9)
[2019-12-01 07:35] LABS: BG BASE EXCESS -6.4 mmol/L (-2.0-2.0); BG CARBOXYHEMOGLOBIN 0.3 % (0.5-1.5); BG DEOXYHEMOGLOBIN 1.7 % (0.0-5.0); BG FRACTION INSPIRED OXYGEN 40; BG HCO3 ACT 16.9 mmol/L (22.0-26.0); BG METHEMOGLOBIN 0.5 % (0.0-1.5); BG OXYGEN SATURATION 98.3 % (92.0-98.5); BG OXYHEMOGLOBIN 97.5 % (94.0-97.0); BG PCO2 25.7 mmHg (35.0-45.0); BG PH 7.436 (7.350-7.450); BG PO2 135.3 mmHg (75.0-100.0); BG SAMPLE SITE RIGHT BRACHIAL; BG TIDAL VOLUME(mL) 500 mL; BG TOTAL HEMOGLOBIN 8.2 g/dL (12.0-18.0); BG VENT MODE VENT - A/C; BG VENT RATE 16 set
[2019-12-01] MEDS: DOCUSATE SODIUM SUGAR FREE 100MG/10ML UDC NG SCH ×2 (08:47→16:54)
[2019-12-01] MEDS: POTASSIUM CHLORIDE INJ 40 MEQ in DEXTROSE 5% WATER 1,000 ML IV SCH ×2 (09:26→13:06)
[2019-12-01] MEDS: INSULIN GLARGINE UD 100 UNITS/ML SYR SUBCUT SCH (09:38)
[2019-12-01] MEDS: LEVETIRACETAM 500MG PREMIX 100 ML IV SCH ×2 (12:32→20:55)
[2019-12-01] MEDS: FENTANYL CITRATE/PF 500 MCG in SODIUM CHLORIDE 0.9% 40 ML IV PRN (12:40)
[2019-12-01] MEDS: FAMOTIDINE 40MG TABLET PO SCH (20:55)
[2019-12-01] MEDS: LATANOPROST 0.005% OPHTH DROPS 2.5ML BOTHEYE SCH (20:55)
[2019-12-02] VITALS (87 sets, daily range): BP systolic 71–137; BP diastolic 35–74
[2019-12-02] MEDS: IPRATROPIUM/ALBUTEROL 0.5-3(2.5)MG/3ML NEB HHN SCH ×6 (00:22→20:46)
[2019-12-02] MEDS: ACETYLCYSTEINE 100MG/ML 10% VIAL 4ML INH SCH ×3 (00:22→16:05)
[2019-12-02] MEDS: POTASSIUM CHLORIDE INJ 40 MEQ in DEXTROSE 5% WATER 1,000 ML IV SCH ×2 (04:08→14:45)
[2019-12-02] MEDS: METOCLOPRAMIDE HCL 10MG/2ML VIAL IV SCH ×3 (05:07→17:07)
[2019-12-02] MEDS: PHENYLEPHRINE 80 MG in DEXT 5% WATER 492 ML IV PRN (05:07)
[2019-12-02] MEDS: PIPERACILLIN/TAZOBACTAM 2.25 G in DEXTROSE 5% WATER 50 ML IV SCH ×3 (05:07→21:19)
[2019-12-02] MEDS: INSULIN LISPRO 100 UNITS/ML SUBCUT SCH ×3 (06:00→17:07)
[2019-12-02 06:14] LABS: BASOPHILS % 0.5 % (0.0-2.0); EOSINOPHILS % 0.7 % (0.0-5.0); HEMATOCRIT. 23.7 % (42.0-52.0); HEMOGLOBIN. 7.8 g/dL (14.0-18.0); LYMPHOCYTES % 8.3 % (20.0-50.0); MEAN CORPUSCULAR HEMOGLOBIN 29.3 pg (28.0-32.0); MEAN CORPUSCULAR VOLUME 88.9 fL (80.0-94.0); MEAN PLATELET VOLUME 8.1 fl (7.4-10.4); MONOCYTES % 7.8 % (2.0-8.0); NEUTROPHILS % 82.7 % (40.0-76.0); PLATELET 342 x1000/uL (130-400); RED BLOOD CELL COUNT 2.67 mill/uL (4.7-6.1); RED CELL DISTRIBUTION WIDTH 15.9 % (11.6-14.6)
[2019-12-02] MEDS: BLOOD SUGAR DIAGNOSTIC STRIP TEST SCH ×3 (06:20→17:07)
[2019-12-02 07:00] LABS: PHOSPHORUS 7.1 mg/dL (2.5-4.9)
[2019-12-02] MEDS: DOCUSATE SODIUM SUGAR FREE 100MG/10ML UDC NG SCH ×2 (08:36→17:07)
[2019-12-02 08:41] LABS: BG BASE EXCESS -5.3 mmol/L (-2.0-2.0); BG CARBOXYHEMOGLOBIN 0.3 % (0.5-1.5); BG DEOXYHEMOGLOBIN 2.1 % (0.0-5.0); BG FRACTION INSPIRED OXYGEN 40; BG HCO3 ACT 18.5 mmol/L (22.0-26.0); BG METHEMOGLOBIN 0.3 % (0.0-1.5); BG OXYGEN SATURATION 97.9 % (92.0-98.5); BG OXYHEMOGLOBIN 97.3 % (94.0-97.0); BG PCO2 29.1 mmHg (35.0-45.0); BG PO2 110.4 mmHg (75.0-100.0); BG SAMPLE SITE RIGHT RADIAL; BG TIDAL VOLUME(mL) 500 mL; BG TOTAL HEMOGLOBIN 7.7 g/dL (12.0-18.0); BG VENT MODE VENT - A/C; BG VENT RATE 16 set
[2019-12-02] MEDS: LEVETIRACETAM 500MG PREMIX 100 ML IV SCH ×2 (10:54→21:20)
[2019-12-02] MEDS: INSULIN GLARGINE UD 100 UNITS/ML SYR SUBCUT SCH (10:55)
[2019-12-02] MEDS: FENTANYL CITRATE/PF 500 MCG in SODIUM CHLORIDE 0.9% 40 ML IV PRN (16:51)
[2019-12-02] MEDS: LATANOPROST 0.005% OPHTH DROPS 2.5ML BOTHEYE SCH (21:19)
[2019-12-02] MEDS: FAMOTIDINE 40MG TABLET PO SCH (21:20)
[2019-12-03] VITALS (70 sets, daily range): BP systolic 86–142; BP diastolic 35–86
[2019-12-03] MEDS: METOCLOPRAMIDE HCL 10MG/2ML VIAL IV SCH ×5 (00:11→23:30)
[2019-12-03] MEDS: IPRATROPIUM/ALBUTEROL 0.5-3(2.5)MG/3ML NEB HHN SCH ×5 (00:11→20:29)
[2019-12-03] MEDS: ACETYLCYSTEINE 100MG/ML 10% VIAL 4ML INH SCH ×2 (00:11→08:16)
[2019-12-03] MEDS: BLOOD SUGAR DIAGNOSTIC STRIP TEST SCH ×5 (00:12→23:27)
[2019-12-03] MEDS: POTASSIUM CHLORIDE INJ 40 MEQ in DEXTROSE 5% WATER 1,000 ML IV SCH ×2 (00:14→17:24)
[2019-12-03] MEDS: FENTANYL CITRATE/PF 500 MCG in SODIUM CHLORIDE 0.9% 40 ML IV PRN ×4 (01:39→22:56)
[2019-12-03 05:55] LABS: BASOPHILS % 0.4 % (0.0-2.0); EOSINOPHILS % 0.4 % (0.0-5.0); HEMATOCRIT. 21.6 % (42.0-52.0); HEMOGLOBIN. 7.3 g/dL (14.0-18.0); LYMPHOCYTES % 10.3 % (20.0-50.0); MEAN CORPUSCULAR HEMOGLOBIN 29.9 pg (28.0-32.0); MEAN CORPUSCULAR VOLUME 88.3 fL (80.0-94.0); MEAN PLATELET VOLUME 7.9 fl (7.4-10.4); MONOCYTES % 6.1 % (2.0-8.0); NEUTROPHILS % 82.8 % (40.0-76.0); PLATELET 364 x1000/uL (130-400); RED BLOOD CELL COUNT 2.44 mill/uL (4.7-6.1); RED CELL DISTRIBUTION WIDTH 15.9 % (11.6-14.6)
[2019-12-03] MEDS: PHENYLEPHRINE 80 MG in DEXT 5% WATER 492 ML IV PRN ×2 (05:56→20:46)
[2019-12-03] MEDS: PIPERACILLIN/TAZOBACTAM 2.25 G in DEXTROSE 5% WATER 50 ML IV SCH ×3 (06:03→21:02)
[2019-12-03] MEDS: INSULIN LISPRO 100 UNITS/ML SUBCUT SCH ×5 (06:06→23:28)
[2019-12-03 06:22] LABS: CHLORIDE 100 mEq/L (98-107)
[2019-12-03 07:09] LABS: PHOSPHORUS 8.7 mg/dL (2.5-4.9)
[2019-12-03 08:12] LABS: BG BASE EXCESS -10.1 mmol/L (-2.0-2.0); BG CARBOXYHEMOGLOBIN 0.5 % (0.5-1.5); BG DEOXYHEMOGLOBIN 1.8 % (0.0-5.0); BG FRACTION INSPIRED OXYGEN 60; BG HCO3 ACT 15.6 mmol/L (22.0-26.0); BG OXYGEN SATURATION 98.2 % (92.0-98.5); BG OXYHEMOGLOBIN 97.7 % (94.0-97.0); BG PCO2 33.4 mmHg (35.0-45.0); BG PH 7.288 (7.350-7.450); BG SAMPLE SITE RIGHT RADIAL; BG TIDAL VOLUME(mL) 500 mL; BG TOTAL HEMOGLOBIN 7.9 g/dL (12.0-18.0); BG VENT MODE VENT - A/C; BG VENT RATE 16 set
[2019-12-03] MEDS ORDERED: SIMETHICONE 80MG TABLET CHEW PO SCH ×2 (09:45)
[2019-12-03] MEDS: INSULIN GLARGINE UD 100 UNITS/ML SYR SUBCUT SCH (10:03)
[2019-12-03] MEDS: DOCUSATE SODIUM SUGAR FREE 100MG/10ML UDC NG SCH ×2 (11:48→17:25)
[2019-12-03] MEDS: LEVETIRACETAM 500MG PREMIX 100 ML IV SCH ×2 (11:48→20:51)
[2019-12-03] MEDS: SIMETHICONE 40 MG/0.6 ML 30ML PO SCH ×3 (12:01→20:52)
[2019-12-03 16:48] LABS: BG BASE EXCESS -10.4 mmol/L (-2.0-2.0); BG CARBOXYHEMOGLOBIN 0.3 % (0.5-1.5); BG DEOXYHEMOGLOBIN 1.4 % (0.0-5.0); BG FRACTION INSPIRED OXYGEN 100; BG HCO3 ACT 15.5 mmol/L (22.0-26.0); BG METHEMOGLOBIN 0.4 % (0.0-1.5); BG OXYGEN SATURATION 98.6 % (92.0-98.5); BG OXYHEMOGLOBIN 97.9 % (94.0-97.0); BG PCO2 34.6 mmHg (35.0-45.0); BG SAMPLE SITE RIGHT RADIAL; BG TIDAL VOLUME(mL) 500 mL; BG TOTAL HEMOGLOBIN 7.4 g/dL (12.0-18.0); BG VENT MODE VENT - A/C; BG VENT RATE 18 set
[2019-12-03] MEDS ORDERED: SODIUM BICARBONATE 8.4% 1 MEQ/ML 50ML SYR IV NR (17:30)
[2019-12-03] MEDS: LATANOPROST 0.005% OPHTH DROPS 2.5ML BOTHEYE SCH (20:51)
[2019-12-03] MEDS: FAMOTIDINE 40MG TABLET PO SCH (20:51)
[2019-12-04] VITALS (106 sets, daily range): BP systolic 62–164; BP diastolic 40–131
[2019-12-04] MEDS: IPRATROPIUM/ALBUTEROL 0.5-3(2.5)MG/3ML NEB HHN SCH ×5 (02:09→20:04)
[2019-12-04] MEDS: ACETYLCYSTEINE 100MG/ML 10% VIAL 4ML INH SCH ×3 (02:10→16:40)
[2019-12-04] MEDS: FENTANYL CITRATE/PF 500 MCG in SODIUM CHLORIDE 0.9% 40 ML IV PRN ×3 (03:26→14:55)
[2019-12-04] MEDS: POTASSIUM CHLORIDE INJ 40 MEQ in DEXTROSE 5% WATER 1,000 ML IV SCH ×2 (05:00→17:37)
[2019-12-04 05:13] LABS: HEMATOCRIT. 22.4 % (42.0-52.0); HEMOGLOBIN. 7.3 g/dL (14.0-18.0); MEAN CORPUSCULAR HEMOGLOBIN 29.7 pg (28.0-32.0); MEAN CORPUSCULAR VOLUME 90.6 fL (80.0-94.0); MEAN PLATELET VOLUME 8.2 fl (7.4-10.4); PLATELET 315 x1000/uL (130-400); RED BLOOD CELL COUNT 2.47 mill/uL (4.7-6.1); RED CELL DISTRIBUTION WIDTH 16.2 % (11.6-14.6)
[2019-12-04 05:54] LABS: CHLORIDE 99 mEq/L (98-107)
[2019-12-04] MEDS: INSULIN LISPRO 100 UNITS/ML SUBCUT SCH ×3 (06:00→17:44)
[2019-12-04] MEDS: BLOOD SUGAR DIAGNOSTIC STRIP TEST SCH ×3 (06:28→17:43)
[2019-12-04] MEDS: METOCLOPRAMIDE HCL 10MG/2ML VIAL IV SCH ×3 (06:28→17:51)
[2019-12-04] MEDS: PIPERACILLIN/TAZOBACTAM 2.25 G in DEXTROSE 5% WATER 50 ML IV SCH ×3 (06:28→21:31)
[2019-12-04] MEDS: SIMETHICONE 40 MG/0.6 ML 30ML PO SCH ×4 (06:29→21:32)
[2019-12-04 08:24] LABS: PLATELET ESTIMATE NORMAL
[2019-12-04 08:39] LABS: BG BASE EXCESS -4.9 mmol/L (-2.0-2.0); BG CARBOXYHEMOGLOBIN 0.1 % (0.5-1.5); BG DEOXYHEMOGLOBIN 3.5 % (0.0-5.0); BG FRACTION INSPIRED OXYGEN 40; BG HCO3 ACT 20.3 mmol/L (22.0-26.0); BG METHEMOGLOBIN 0.3 % (0.0-1.5); BG OXYGEN SATURATION 96.5 % (92.0-98.5); BG OXYHEMOGLOBIN 96.1 % (94.0-97.0); BG PCO2 37.7 mmHg (35.0-45.0); BG PH 7.349 (7.350-7.450); BG PO2 94.6 mmHg (75.0-100.0); BG SAMPLE SITE RIGHT RADIAL; BG TIDAL VOLUME(mL) 500 mL; BG TOTAL HEMOGLOBIN 7.4 g/dL (12.0-18.0); BG VENT MODE VENT - A/C; BG VENT RATE 22 set
[2019-12-04] MEDS ORDERED: COR25 MT (08:56)
[2019-12-04] MEDS ORDERED: NIFE-32 PO (08:56)
[2019-12-04] MEDS ORDERED: METO-385 MT (08:56)
[2019-12-04] MEDS ORDERED: MEGE20TA6 MT (08:56)
[2019-12-04] MEDS: DOCUSATE SODIUM SUGAR FREE 100MG/10ML UDC NG SCH ×2 (09:26→17:37)
[2019-12-04] MEDS: LEVETIRACETAM 500MG PREMIX 100 ML IV SCH ×2 (09:26→21:32)
[2019-12-04] MEDS: PHENYLEPHRINE 80 MG in DEXT 5% WATER 492 ML IV PRN ×2 (09:27→17:42)
[2019-12-04] MEDS: INSULIN GLARGINE UD 100 UNITS/ML SYR SUBCUT SCH (09:32)
[2019-12-04] MEDS: FENTANYL CITRATE/PF 1,000 MCG in SODIUM CHLORIDE 0.9% 80 ML IV PRN (17:40)
[2019-12-04 17:45] LABS: MEAN CORPUSCULAR HEMOGLOBIN 29.7 pg (28.0-32.0); MEAN CORPUSCULAR VOLUME 89.1 fL (80.0-94.0); MEAN PLATELET VOLUME 7.6 fl (7.4-10.4); PLATELET 326 x1000/uL (130-400); RED BLOOD CELL COUNT 2.31 mill/uL (4.7-6.1); RED CELL DISTRIBUTION WIDTH 15.9 % (11.6-14.6)
[2019-12-04 17:51] LABS: HEMATOCRIT. 20.6 % (42.0-52.0); HEMOGLOBIN. 6.9 g/dL (14.0-18.0)
[2019-12-04 18:20] LABS: PHOSPHORUS 8.3 mg/dL (2.5-4.9)
[2019-12-04 19:59] LABS: PLATELET ESTIMATE NORMAL
[2019-12-04] MEDS: FAMOTIDINE 40MG TABLET PO SCH (21:31)
[2019-12-04] MEDS: LATANOPROST 0.005% OPHTH DROPS 2.5ML BOTHEYE SCH (21:32)
[2019-12-05] VITALS (96 sets, daily range): BP systolic 62–167; BP diastolic 38–103
[2019-12-05] MEDS: BLOOD SUGAR DIAGNOSTIC STRIP TEST SCH ×4 (00:09→18:00)
[2019-12-05] MEDS: FENTANYL CITRATE/PF 1,000 MCG in SODIUM CHLORIDE 0.9% 80 ML IV PRN ×3 (00:10→16:24)
[2019-12-05] MEDS: METOCLOPRAMIDE HCL 10MG/2ML VIAL IV SCH ×4 (00:11→17:43)
[2019-12-05] MEDS: IPRATROPIUM/ALBUTEROL 0.5-3(2.5)MG/3ML NEB HHN SCH ×6 (00:20→20:27)
[2019-12-05] MEDS: ACETYLCYSTEINE 100MG/ML 10% VIAL 4ML INH SCH ×2 (00:21→08:57)
[2019-12-05] MEDS: PHENYLEPHRINE 80 MG in DEXT 5% WATER 492 ML IV PRN ×3 (02:04→21:32)
[2019-12-05] MEDS: INSULIN LISPRO 100 UNITS/ML SUBCUT SCH ×4 (05:06→18:00)
[2019-12-05] MEDS: PIPERACILLIN/TAZOBACTAM 2.25 G in DEXTROSE 5% WATER 50 ML IV SCH ×3 (05:10→22:25)
[2019-12-05 05:38] LABS: BASOPHILS % 0.5 % (0.0-2.0); HEMATOCRIT. 25.8 % (42.0-52.0); HEMOGLOBIN. 8.7 g/dL (14.0-18.0); LYMPHOCYTES % 12.7 % (20.0-50.0); MEAN CORPUSCULAR HEMOGLOBIN 30.3 pg (28.0-32.0); MEAN CORPUSCULAR VOLUME 89.5 fL (80.0-94.0); MONOCYTES % 7.5 % (2.0-8.0); NEUTROPHILS % 78.3 % (40.0-76.0); PLATELET 355 x1000/uL (130-400); RED BLOOD CELL COUNT 2.89 mill/uL (4.7-6.1); RED CELL DISTRIBUTION WIDTH 15.8 % (11.6-14.6)
[2019-12-05 06:37] LABS: PHOSPHORUS 8.9 mg/dL (2.5-4.9)
[2019-12-05] MEDS: SIMETHICONE 40 MG/0.6 ML 30ML PO SCH ×4 (06:59→20:38)
[2019-12-05 07:50] LABS: BG BASE EXCESS -8.1 mmol/L (-2.0-2.0); BG CARBOXYHEMOGLOBIN 0.3 % (0.5-1.5); BG DEOXYHEMOGLOBIN 1.5 % (0.0-5.0); BG HCO3 ACT 17.6 mmol/L (22.0-26.0); BG METHEMOGLOBIN 0.6 % (0.0-1.5); BG OXYGEN SATURATION 98.5 % (92.0-98.5); BG OXYHEMOGLOBIN 97.6 % (94.0-97.0); BG PCO2 37.1 mmHg (35.0-45.0); BG PH 7.295 (7.350-7.450); BG PO2 145.7 mmHg (75.0-100.0); BG SAMPLE SITE RIGHT RADIAL; BG TIDAL VOLUME(mL) 500 mL; BG TOTAL HEMOGLOBIN 8.9 g/dL (12.0-18.0); BG VENT MODE VENT - A/C; BG VENT RATE 22 set
[2019-12-05] MEDS: DOCUSATE SODIUM SUGAR FREE 100MG/10ML UDC NG SCH ×2 (09:00→17:00)
[2019-12-05] MEDS: INSULIN GLARGINE UD 100 UNITS/ML SYR SUBCUT SCH (11:53)
[2019-12-05] MEDS: LEVETIRACETAM 500MG PREMIX 100 ML IV SCH ×2 (11:53→21:31)
[2019-12-05] MEDS: DEXT 5%/0.9% NACL 1,000 ML IV SCH (11:56)
[2019-12-05 15:41] LABS: HEMATOCRIT 25.1 % (42.0-52.0); HEMOGLOBIN 8.4 g/dL (14.0-18.0)
[2019-12-05] MEDS: FAMOTIDINE 40MG TABLET PO SCH (20:38)
[2019-12-05] MEDS: LATANOPROST 0.005% OPHTH DROPS 2.5ML BOTHEYE SCH (21:31)
[2019-12-05] MEDS: MIDAZOLAM HCL 100 MG in DEXT 5% WATER 80 ML IV PRN (21:47)
[2019-12-05 23:24] LABS: HEMATOCRIT 25.1 % (42.0-52.0); HEMOGLOBIN 8.4 g/dL (14.0-18.0)
[2019-12-06] VITALS (99 sets, daily range): BP systolic 64–126; BP diastolic 30–69
[2019-12-06] MEDS: METOCLOPRAMIDE HCL 10MG/2ML VIAL IV SCH ×4 (00:19→17:06)
[2019-12-06] MEDS: BLOOD SUGAR DIAGNOSTIC STRIP TEST SCH ×4 (00:19→17:02)
[2019-12-06] MEDS: IPRATROPIUM/ALBUTEROL 0.5-3(2.5)MG/3ML NEB HHN SCH ×6 (00:31→20:32)
[2019-12-06] MEDS: FENTANYL CITRATE/PF 1,000 MCG in SODIUM CHLORIDE 0.9% 80 ML IV PRN ×2 (03:04→11:32)
[2019-12-06 05:49] LABS: BASOPHILS % 0.5 % (0.0-2.0); EOSINOPHILS % 0.8 % (0.0-5.0); HEMATOCRIT. 25.6 % (42.0-52.0); HEMOGLOBIN. 8.6 g/dL (14.0-18.0); LYMPHOCYTES % 17.3 % (20.0-50.0); MEAN CORPUSCULAR HEMOGLOBIN 29.9 pg (28.0-32.0); MEAN CORPUSCULAR VOLUME 89.3 fL (80.0-94.0); MEAN PLATELET VOLUME 8.1 fl (7.4-10.4); MONOCYTES % 8.1 % (2.0-8.0); NEUTROPHILS % 73.3 % (40.0-76.0); PLATELET 298 x1000/uL (130-400); RED BLOOD CELL COUNT 2.86 mill/uL (4.7-6.1); RED CELL DISTRIBUTION WIDTH 15.8 % (11.6-14.6)
[2019-12-06] MEDS: INSULIN LISPRO 100 UNITS/ML SUBCUT SCH ×4 (06:00→17:06)
[2019-12-06] MEDS: DEXT 5%/0.9% NACL 1,000 ML IV SCH (06:00)
[2019-12-06 06:18] LABS: PHOSPHORUS 7.7 mg/dL (2.5-4.9)
[2019-12-06] MEDS: SIMETHICONE 40 MG/0.6 ML 30ML PO SCH ×4 (06:25→20:06)
[2019-12-06] MEDS: PIPERACILLIN/TAZOBACTAM 2.25 G in DEXTROSE 5% WATER 50 ML IV SCH ×3 (06:28→22:05)
[2019-12-06] MEDS: PHENYLEPHRINE 80 MG in DEXT 5% WATER 492 ML IV PRN ×3 (06:29→23:28)
[2019-12-06 07:32] LABS: BG BASE EXCESS -6.3 mmol/L (-2.0-2.0); BG CARBOXYHEMOGLOBIN 0.3 % (0.5-1.5); BG DEOXYHEMOGLOBIN 3.6 % (0.0-5.0); BG HCO3 ACT 18.4 mmol/L (22.0-26.0); BG METHEMOGLOBIN 0.3 % (0.0-1.5); BG OXYGEN SATURATION 96.4 % (92.0-98.5); BG OXYHEMOGLOBIN 95.8 % (94.0-97.0); BG PCO2 33.1 mmHg (35.0-45.0); BG PH 7.363 (7.350-7.450); BG PO2 95.7 mmHg (75.0-100.0); BG SAMPLE SITE RIGHT RADIAL; BG TIDAL VOLUME(mL) 500 mL; BG TOTAL HEMOGLOBIN 8.7 g/dL (12.0-18.0); BG VENT MODE VENT - A/C; BG VENT RATE 24 set
[2019-12-06] MEDS: LEVETIRACETAM 500MG PREMIX 100 ML IV SCH ×2 (08:08→20:06)
[2019-12-06] MEDS: DOCUSATE SODIUM SUGAR FREE 100MG/10ML UDC NG SCH ×2 (09:00→17:06)
[2019-12-06] MEDS: INSULIN GLARGINE UD 100 UNITS/ML SYR SUBCUT SCH (09:22)
[2019-12-06 13:01] LABS: INR 1.4; PROTHROMBIN TIME 13.8 sec (9.6-11.0)
[2019-12-06] MEDS ORDERED: LIDOCAINE HCL/PF 1% 2ML VIAL ONE (16:32)
[2019-12-06] MEDS: ACETYLCYSTEINE 100MG/ML 10% VIAL 4ML INH SCH (16:44)
[2019-12-06] MEDS: LATANOPROST 0.005% OPHTH DROPS 2.5ML BOTHEYE SCH (20:05)
[2019-12-06] MEDS: FAMOTIDINE 40MG TABLET PO SCH (20:06)
[2019-12-06] MEDS: MIDAZOLAM HCL 100 MG in DEXT 5% WATER 80 ML IV PRN (22:07)
[2019-12-07] VITALS (99 sets, daily range): BP systolic 76–158; BP diastolic 33–77
[2019-12-07] MEDS: METOCLOPRAMIDE HCL 10MG/2ML VIAL IV SCH ×4 (00:32→18:02)
[2019-12-07] MEDS: FENTANYL CITRATE/PF 1,000 MCG in SODIUM CHLORIDE 0.9% 80 ML IV PRN (00:32)
[2019-12-07] MEDS: INSULIN LISPRO 100 UNITS/ML SUBCUT SCH ×4 (00:39→18:03)
[2019-12-07] MEDS: ACETYLCYSTEINE 100MG/ML 10% VIAL 4ML INH SCH ×4 (00:57→23:40)
[2019-12-07] MEDS: IPRATROPIUM/ALBUTEROL 0.5-3(2.5)MG/3ML NEB HHN SCH ×7 (00:57→23:40)
[2019-12-07] MEDS: PIPERACILLIN/TAZOBACTAM 2.25 G in DEXTROSE 5% WATER 50 ML IV SCH ×2 (06:00→14:00)
[2019-12-07] MEDS: BLOOD SUGAR DIAGNOSTIC STRIP TEST SCH ×4 (06:00→17:54)
[2019-12-07 06:02] LABS: HEMATOCRIT. 28.7 % (42.0-52.0); HEMOGLOBIN. 9.6 g/dL (14.0-18.0); MEAN CORPUSCULAR HEMOGLOBIN 30.3 pg (28.0-32.0); MEAN CORPUSCULAR VOLUME 90.2 fL (80.0-94.0); MEAN PLATELET VOLUME 8.1 fl (7.4-10.4); PLATELET 352 x1000/uL (130-400); RED BLOOD CELL COUNT 3.18 mill/uL (4.7-6.1); RED CELL DISTRIBUTION WIDTH 16.3 % (11.6-14.6)
[2019-12-07 06:39] LABS: PHOSPHORUS 8.7 mg/dL (2.5-4.9)
[2019-12-07] MEDS: SIMETHICONE 40 MG/0.6 ML 30ML PO SCH ×4 (07:30→21:25)
[2019-12-07 07:32] LABS: BG BASE EXCESS -8.7 mmol/L (-2.0-2.0); BG CARBOXYHEMOGLOBIN 0.3 % (0.5-1.5); BG DEOXYHEMOGLOBIN 4.7 % (0.0-5.0); BG FRACTION INSPIRED OXYGEN 40; BG METHEMOGLOBIN 0.1 % (0.0-1.5); BG OXYGEN SATURATION 95.3 % (92.0-98.5); BG OXYHEMOGLOBIN 94.9 % (94.0-97.0); BG PCO2 29.9 mmHg (35.0-45.0); BG PH 7.345 (7.350-7.450); BG PO2 86.4 mmHg (75.0-100.0); BG SAMPLE SITE RIGHT RADIAL; BG TIDAL VOLUME(mL) 500 mL; BG TOTAL HEMOGLOBIN 9.2 g/dL (12.0-18.0); BG VENT MODE VENT - A/C; BG VENT RATE 24 set
[2019-12-07 08:06] LABS: NUCLEATED RED BLOOD CELLS 2 /100 WBC; PLATELET ESTIMATE NORMAL
[2019-12-07] MEDS: PHENYLEPHRINE 80 MG in DEXT 5% WATER 492 ML IV PRN ×2 (08:57→19:50)
[2019-12-07] MEDS: DOCUSATE SODIUM SUGAR FREE 100MG/10ML UDC NG SCH ×2 (09:00→17:00)
[2019-12-07] MEDS: LEVETIRACETAM 500MG PREMIX 100 ML IV SCH ×2 (09:37→21:41)
[2019-12-07] MEDS: INSULIN GLARGINE UD 100 UNITS/ML SYR SUBCUT SCH (09:47)
[2019-12-07] MEDS ORDERED: LIDOCAINE HCL 1% 20ML VIAL (Pyxis) INJ ONE (10:42)
[2019-12-07] MEDS ORDERED: SODIUM BICARBONATE 4% (2.4MEQ) 5ML VIAL IV ONE (10:42)
[2019-12-07] MEDS ORDERED: BISACODYL 10MG SUPP PR NR (13:30)
[2019-12-07] MEDS: FAMOTIDINE 20MG TABLET PO SCH (21:25)
[2019-12-07] MEDS: LATANOPROST 0.005% OPHTH DROPS 2.5ML BOTHEYE SCH (21:40)
[2019-12-07] MEDS: MIDAZOLAM HCL 100 MG in DEXT 5% WATER 80 ML IV PRN (23:41)
[2019-12-08] VITALS (79 sets, daily range): BP systolic 76–134; BP diastolic 33–104
[2019-12-08] MEDS: PIPERACILLIN/TAZOBACTAM 2.25 G in DEXTROSE 5% WATER 50 ML IV SCH (00:08)
[2019-12-08] MEDS ORDERED: DILTIAZEM HCL 125 MG in DEXT 5% WATER 100 ML IV PRN (00:45)
[2019-12-08] MEDS: INSULIN LISPRO 100 UNITS/ML SUBCUT SCH ×4 (00:59→18:00)
[2019-12-08] MEDS: BLOOD SUGAR DIAGNOSTIC STRIP TEST SCH ×4 (00:59→18:34)
[2019-12-08] MEDS: METOCLOPRAMIDE HCL 10MG/2ML VIAL IV SCH ×4 (00:59→18:43)
[2019-12-08] MEDS: IPRATROPIUM/ALBUTEROL 0.5-3(2.5)MG/3ML NEB HHN SCH ×5 (03:19→20:29)
[2019-12-08 05:36] LABS: HEMATOCRIT. 25.5 % (42.0-52.0); HEMOGLOBIN. 8.4 g/dL (14.0-18.0); MEAN CORPUSCULAR HEMOGLOBIN 29.6 pg (28.0-32.0); MEAN CORPUSCULAR VOLUME 89.9 fL (80.0-94.0); MEAN PLATELET VOLUME 8.2 fl (7.4-10.4); PLATELET 288 x1000/uL (130-400); RED BLOOD CELL COUNT 2.83 mill/uL (4.7-6.1); RED CELL DISTRIBUTION WIDTH 16.8 % (11.6-14.6)
[2019-12-08 05:42] LABS: CHLORIDE 100 mEq/L (98-107)
[2019-12-08 05:49] LABS: PHOSPHORUS 7.3 mg/dL (2.5-4.9)
[2019-12-08] MEDS: SIMETHICONE 40 MG/0.6 ML 30ML PO SCH ×4 (07:30→21:19)
[2019-12-08] MEDS: ACETYLCYSTEINE 100MG/ML 10% VIAL 4ML INH SCH ×2 (08:06→16:39)
[2019-12-08] MEDS: PHENYLEPHRINE 80 MG in DEXT 5% WATER 492 ML IV PRN (08:06)
[2019-12-08] MEDS: DOCUSATE SODIUM SUGAR FREE 100MG/10ML UDC NG SCH ×2 (09:00→16:45)
[2019-12-08] MEDS ORDERED: NA PHOS,M-B/NA PHOS,DI-BA ENEMA 118ML PR NR (09:45)
[2019-12-08] MEDS: LEVETIRACETAM 500MG PREMIX 100 ML IV SCH ×2 (10:15→21:19)
[2019-12-08] MEDS: INSULIN GLARGINE UD 100 UNITS/ML SYR SUBCUT SCH (10:15)
[2019-12-08] MEDS: MIDODRINE HCL 5MG TABLET PO SCH ×3 (11:00→16:45)
[2019-12-08] MEDS ORDERED: ALBUMIN HUMAN 25GM/100ML (25%) IV NR (12:00)
[2019-12-08] MEDS: FENTANYL CITRATE/PF 1,000 MCG in SODIUM CHLORIDE 0.9% 80 ML IV PRN (12:16)
[2019-12-08 13:07] LABS: PLATELET ESTIMATE NORMAL
[2019-12-08] MEDS: DILTIAZEM HCL 125 MG in DEXT 5% WATER 100 ML IV SCH (14:30)
[2019-12-08] MEDS ORDERED: VECURONIUM BROMIDE 10 MG/VIAL IV ONE ×2 (17:23→17:49)
[2019-12-08] MEDS ORDERED: MIDAZOLAM HCL 2 MG/2 ML VIAL ONE (17:23)
[2019-12-08] MEDS: DEXT 5%/0.9% NACL 1,000 ML IV SCH (18:00)
[2019-12-08 19:05] LABS: HEMATOCRIT 27.4 % (42.0-52.0); HEMOGLOBIN 9.1 g/dL (14.0-18.0); MEAN CORPUSCULAR HEMOGLOBIN 30.1 pg (28.0-32.0); MEAN CORPUSCULAR VOLUME 90.4 fL (80.0-94.0); PLATELET 248 x1000/uL (130-400); RED BLOOD CELL COUNT 3.03 mill/uL (4.7-6.1); RED CELL DISTRIBUTION WIDTH 16.3 % (11.6-14.6)
[2019-12-08 19:10] LABS: INR 1.3
[2019-12-08] MEDS: LATANOPROST 0.005% OPHTH DROPS 2.5ML BOTHEYE SCH (21:19)
[2019-12-08] MEDS: FAMOTIDINE 20MG TABLET PO SCH (21:19)
[2019-12-09] VITALS (93 sets, daily range): BP systolic 71–155; BP diastolic 34–86
[2019-12-09] MEDS: ACETYLCYSTEINE 100MG/ML 10% VIAL 4ML INH SCH ×3 (00:10→15:02)
[2019-12-09] MEDS: IPRATROPIUM/ALBUTEROL 0.5-3(2.5)MG/3ML NEB HHN SCH ×6 (00:11→20:46)
[2019-12-09] MEDS: BLOOD SUGAR DIAGNOSTIC STRIP TEST SCH ×5 (00:15→23:36)
[2019-12-09] MEDS: METOCLOPRAMIDE HCL 10MG/2ML VIAL IV SCH ×5 (00:50→23:57)
[2019-12-09 05:45] LABS: BASOPHILS % 0.6 % (0.0-2.0); EOSINOPHILS % 1.2 % (0.0-5.0); HEMATOCRIT. 26.4 % (42.0-52.0); HEMOGLOBIN. 8.8 g/dL (14.0-18.0); LYMPHOCYTES % 11.9 % (20.0-50.0); MEAN PLATELET VOLUME 8.2 fl (7.4-10.4); MONOCYTES % 4.5 % (2.0-8.0); NEUTROPHILS % 81.8 % (40.0-76.0); PLATELET 238 x1000/uL (130-400); RED BLOOD CELL COUNT 2.94 mill/uL (4.7-6.1)
[2019-12-09 05:58] LABS: PHOSPHORUS 8.1 mg/dL (2.5-4.9)
[2019-12-09] MEDS: INSULIN LISPRO 100 UNITS/ML SUBCUT SCH ×5 (05:59→23:57)
[2019-12-09] MEDS: SIMETHICONE 40 MG/0.6 ML 30ML PO SCH ×4 (06:43→20:35)
[2019-12-09] MEDS: DOCUSATE SODIUM SUGAR FREE 100MG/10ML UDC NG SCH ×2 (09:17→17:00)
[2019-12-09] MEDS: MIDODRINE HCL 5MG TABLET PO SCH ×3 (09:18→17:00)
[2019-12-09] MEDS: FENTANYL CITRATE/PF 1,000 MCG in SODIUM CHLORIDE 0.9% 80 ML IV PRN (09:19)
[2019-12-09] MEDS: INSULIN GLARGINE UD 100 UNITS/ML SYR SUBCUT SCH (09:20)
[2019-12-09] MEDS: LEVETIRACETAM 500MG PREMIX 100 ML IV SCH ×2 (09:21→20:34)
[2019-12-09] MEDS: CALCIUM ACETATE 667MG CAPSULE PO SCH ×3 (12:05→23:58)
[2019-12-09 13:09] LABS: BG BASE EXCESS -4.8 mmol/L (-2.0-2.0); BG CARBOXYHEMOGLOBIN 0.2 % (0.5-1.5); BG DEOXYHEMOGLOBIN 4.6 % (0.0-5.0); BG FRACTION INSPIRED OXYGEN 40; BG HCO3 ACT 19.9 mmol/L (22.0-26.0); BG METHEMOGLOBIN 0.3 % (0.0-1.5); BG OXYGEN SATURATION 95.4 % (92.0-98.5); BG OXYHEMOGLOBIN 94.9 % (94.0-97.0); BG PH 7.372 (7.350-7.450); BG PO2 80.3 mmHg (75.0-100.0); BG SAMPLE SITE RIGHT RADIAL; BG TIDAL VOLUME(mL) 500 mL; BG TOTAL HEMOGLOBIN 10.1 g/dL (12.0-18.0); BG VENT MODE VENT - A/C; BG VENT RATE 24 set
[2019-12-09] MEDS: DILTIAZEM HCL 125 MG in DEXT 5% WATER 100 ML IV SCH (14:30)
[2019-12-09] MEDS: DEXT 5%/0.9% NACL 1,000 ML IV SCH (14:44)
[2019-12-09] MEDS ORDERED: ALBUMIN HUMAN 25GM/500ML (5%) IV SCH (17:30)
[2019-12-09] MEDS: FAMOTIDINE 20MG TABLET PO SCH (20:34)
[2019-12-09] MEDS: LATANOPROST 0.005% OPHTH DROPS 2.5ML BOTHEYE SCH (20:35)
[2019-12-10] VITALS (79 sets, daily range): BP systolic 67–169; BP diastolic 41–110
[2019-12-10] MEDS: ACETYLCYSTEINE 100MG/ML 10% VIAL 4ML INH SCH ×3 (00:39→16:43)
[2019-12-10] MEDS: IPRATROPIUM/ALBUTEROL 0.5-3(2.5)MG/3ML NEB HHN SCH ×6 (00:39→20:18)
[2019-12-10] MEDS: INSULIN LISPRO 100 UNITS/ML SUBCUT SCH ×4 (05:37→23:43)
[2019-12-10] MEDS: BLOOD SUGAR DIAGNOSTIC STRIP TEST SCH ×4 (05:37→23:36)
[2019-12-10 05:42] LABS: HEMATOCRIT. 25.5 % (42.0-52.0); HEMOGLOBIN. 8.6 g/dL (14.0-18.0); MEAN CORPUSCULAR HEMOGLOBIN 30.3 pg (28.0-32.0); MEAN CORPUSCULAR VOLUME 89.7 fL (80.0-94.0); MEAN PLATELET VOLUME 8.2 fl (7.4-10.4); PLATELET 199 x1000/uL (130-400); RED BLOOD CELL COUNT 2.84 mill/uL (4.7-6.1); RED CELL DISTRIBUTION WIDTH 16.1 % (11.6-14.6)
[2019-12-10] MEDS: METOCLOPRAMIDE HCL 10MG/2ML VIAL IV SCH ×4 (05:42→23:43)
[2019-12-10] MEDS: CALCIUM ACETATE 667MG CAPSULE PO SCH ×3 (05:42→17:28)
[2019-12-10] MEDS: FENTANYL CITRATE/PF 500 MCG in SODIUM CHLORIDE 0.9% 40 ML IV PRN ×2 (05:43→20:05)
[2019-12-10 05:56] LABS: CHLORIDE 102 mEq/L (98-107)
[2019-12-10 06:03] LABS: PHOSPHORUS 6.1 mg/dL (2.5-4.9)
[2019-12-10] MEDS: SIMETHICONE 40 MG/0.6 ML 30ML PO SCH ×4 (06:54→20:30)
[2019-12-10] MEDS: DOCUSATE SODIUM SUGAR FREE 100MG/10ML UDC NG SCH ×2 (08:36→17:29)
[2019-12-10] MEDS: MIDODRINE HCL 5MG TABLET PO SCH ×3 (08:36→17:29)
[2019-12-10] MEDS: LEVETIRACETAM 500MG PREMIX 100 ML IV SCH ×2 (08:36→20:30)
[2019-12-10 10:00] LABS: PLATELET ESTIMATE NORMAL
[2019-12-10] MEDS: DEXT 5%/0.9% NACL 1,000 ML IV SCH (10:09)
[2019-12-10] MEDS: INSULIN GLARGINE UD 100 UNITS/ML SYR SUBCUT SCH (10:09)
[2019-12-10] MEDS: DILTIAZEM HCL 125 MG in DEXT 5% WATER 100 ML IV SCH (14:30)
[2019-12-10] MEDS: FAMOTIDINE 20MG TABLET PO SCH (20:30)
[2019-12-10] MEDS: LATANOPROST 0.005% OPHTH DROPS 2.5ML BOTHEYE SCH (20:31)
[2019-12-11] VITALS (81 sets, daily range): BP systolic 79–158; BP diastolic 52–105
[2019-12-11] MEDS: ACETYLCYSTEINE 100MG/ML 10% VIAL 4ML INH SCH ×2 (00:15→08:00)
[2019-12-11] MEDS: IPRATROPIUM/ALBUTEROL 0.5-3(2.5)MG/3ML NEB HHN SCH ×6 (00:15→20:36)
[2019-12-11] MEDS: DEXT 5%/0.9% NACL 1,000 ML IV SCH (05:20)
[2019-12-11] MEDS: BLOOD SUGAR DIAGNOSTIC STRIP TEST SCH ×4 (05:26→23:40)
[2019-12-11] MEDS: METOCLOPRAMIDE HCL 10MG/2ML VIAL IV SCH ×4 (05:37→23:45)
[2019-12-11] MEDS: INSULIN LISPRO 100 UNITS/ML SUBCUT SCH ×4 (05:39→23:40)
[2019-12-11] MEDS: FENTANYL CITRATE/PF 500 MCG in SODIUM CHLORIDE 0.9% 40 ML IV PRN ×2 (06:39→18:51)
[2019-12-11 06:58] LABS: HEMATOCRIT. 29.8 % (42.0-52.0); HEMOGLOBIN. 9.9 g/dL (14.0-18.0); MEAN CORPUSCULAR HEMOGLOBIN 30.7 pg (28.0-32.0); MEAN CORPUSCULAR VOLUME 92.2 fL (80.0-94.0); MEAN PLATELET VOLUME 8.1 fl (7.4-10.4); PLATELET 199 x1000/uL (130-400); RED BLOOD CELL COUNT 3.23 mill/uL (4.7-6.1)
[2019-12-11 07:36] LABS: CHLORIDE 99 mEq/L (98-107)
[2019-12-11 07:44] LABS: PHOSPHORUS 6.2 mg/dL (2.5-4.9)
[2019-12-11 08:06] LABS: BG CARBOXYHEMOGLOBIN 0.3 % (0.5-1.5); BG DEOXYHEMOGLOBIN 4.9 % (0.0-5.0); BG HCO3 ACT 15.9 mmol/L (22.0-26.0); BG METHEMOGLOBIN 0.3 % (0.0-1.5); BG OXYGEN SATURATION 95.1 % (92.0-98.5); BG OXYHEMOGLOBIN 94.5 % (94.0-97.0); BG PCO2 26.6 mmHg (35.0-45.0); BG PH 7.394 (7.350-7.450); BG PO2 82.6 mmHg (75.0-100.0); BG SAMPLE SITE RIGHT RADIAL; BG TIDAL VOLUME(mL) 500 mL; BG TOTAL HEMOGLOBIN 8.2 g/dL (12.0-18.0); BG VENT MODE VENT - A/C; BG VENT RATE 24 set
[2019-12-11] MEDS: MIDODRINE HCL 5MG TABLET PO SCH ×3 (08:34→17:54)
[2019-12-11] MEDS: LEVETIRACETAM 500MG PREMIX 100 ML IV SCH ×2 (08:35→20:43)
[2019-12-11] MEDS: DOCUSATE SODIUM SUGAR FREE 100MG/10ML UDC NG SCH ×2 (08:35→17:54)
[2019-12-11] MEDS: SIMETHICONE 40 MG/0.6 ML 30ML PO SCH ×4 (08:36→20:42)
[2019-12-11] MEDS: CALCIUM ACETATE 667MG CAPSULE PO SCH ×3 (08:39→17:55)
[2019-12-11] MEDS: INSULIN GLARGINE UD 100 UNITS/ML SYR SUBCUT SCH (11:55)
[2019-12-11] MEDS: PHENYLEPHRINE 80 MG in DEXT 5% WATER 492 ML IV PRN (12:03)
[2019-12-11 13:46] LABS: PLATELET ESTIMATE NORMAL
[2019-12-11] MEDS ORDERED: HEPARIN SODIUM 1,000 UNIT/1ML VIAL IV NR ×2 (14:27→14:30)
[2019-12-11] MEDS ORDERED: NOREPINEPHRINE 32 MG in SODIUM CHLORIDE 0.9% 468 ML IV PRN (16:00)
[2019-12-11] MEDS: DILTIAZEM HCL 125 MG in DEXT 5% WATER 100 ML IV SCH (17:22)
[2019-12-11] MEDS: LATANOPROST 0.005% OPHTH DROPS 2.5ML BOTHEYE SCH (20:42)
[2019-12-11] MEDS: FAMOTIDINE 20MG TABLET PO SCH (20:42)
[2019-12-12] VITALS (81 sets, daily range): BP systolic 83–155; BP diastolic 49–104
[2019-12-12] MEDS: IPRATROPIUM/ALBUTEROL 0.5-3(2.5)MG/3ML NEB HHN SCH ×6 (00:37→20:20)
[2019-12-12] MEDS: ACETYLCYSTEINE 100MG/ML 10% VIAL 4ML INH SCH (00:38)
[2019-12-12 05:01] LABS: HEMOGLOBIN. 8.7 g/dL (14.0-18.0); MEAN CORPUSCULAR HEMOGLOBIN 29.9 pg (28.0-32.0); MEAN CORPUSCULAR VOLUME 89.2 fL (80.0-94.0); MEAN PLATELET VOLUME 8.5 fl (7.4-10.4); PLATELET 168 x1000/uL (130-400); RED BLOOD CELL COUNT 2.91 mill/uL (4.7-6.1); RED CELL DISTRIBUTION WIDTH 16.9 % (11.6-14.6)
[2019-12-12 05:02] LABS: CHLORIDE 103 mEq/L (98-107)
[2019-12-12 05:06] LABS: PHOSPHORUS 4.5 mg/dL (2.5-4.9)
[2019-12-12] MEDS: BLOOD SUGAR DIAGNOSTIC STRIP TEST SCH ×4 (05:20→23:18)
[2019-12-12] MEDS: METOCLOPRAMIDE HCL 10MG/2ML VIAL IV SCH ×4 (05:27→23:25)
[2019-12-12] MEDS: INSULIN LISPRO 100 UNITS/ML SUBCUT SCH ×4 (05:29→23:18)
[2019-12-12] MEDS: DEXT 5%/0.9% NACL 1,000 ML IV SCH (05:30)
[2019-12-12] MEDS: FENTANYL CITRATE/PF 500 MCG in SODIUM CHLORIDE 0.9% 40 ML IV PRN ×3 (06:18→23:22)
[2019-12-12] MEDS: CALCIUM ACETATE 667MG CAPSULE PO SCH (07:00)
[2019-12-12] MEDS: MIDODRINE HCL 5MG TABLET PO SCH ×3 (08:37→18:09)
[2019-12-12] MEDS: LEVETIRACETAM 500MG PREMIX 100 ML IV SCH ×2 (08:38→21:29)
[2019-12-12] MEDS: DOCUSATE SODIUM SUGAR FREE 100MG/10ML UDC NG SCH ×2 (08:38→18:09)
[2019-12-12] MEDS: INSULIN GLARGINE UD 100 UNITS/ML SYR SUBCUT SCH (09:07)
[2019-12-12] MEDS: SIMETHICONE 40 MG/0.6 ML 30ML PO SCH ×4 (09:14→21:29)
[2019-12-12] MEDS: PHENYLEPHRINE 80 MG in DEXT 5% WATER 492 ML IV PRN (13:24)
[2019-12-12] MEDS ORDERED: CALCIUM ACETATE 667 MG TABLET PO SCH (14:00)
[2019-12-12] MEDS: DILTIAZEM HCL 125 MG in DEXT 5% WATER 100 ML IV SCH (14:06)
[2019-12-12 14:47] LABS: PLATELET ESTIMATE NORMAL
[2019-12-12] MEDS: CALCIUM ACETATE 667 MG TABLET PO SCH (17:00)
[2019-12-12] MEDS: LATANOPROST 0.005% OPHTH DROPS 2.5ML BOTHEYE SCH (21:28)
[2019-12-12] MEDS: FAMOTIDINE 20MG TABLET PO SCH (21:29)
[2019-12-13] VITALS (103 sets, daily range): BP systolic 90–144; BP diastolic 47–92
[2019-12-13] MEDS: IPRATROPIUM/ALBUTEROL 0.5-3(2.5)MG/3ML NEB HHN SCH ×6 (00:11→23:45)
[2019-12-13] MEDS: DILTIAZEM HCL 125 MG in DEXT 5% WATER 100 ML IV SCH (02:47)
[2019-12-13 05:16] LABS: BASOPHILS % 0.8 % (0.0-2.0); EOSINOPHILS % 2.7 % (0.0-5.0); HEMATOCRIT. 25.5 % (42.0-52.0); HEMOGLOBIN. 8.6 g/dL (14.0-18.0); LYMPHOCYTES % 12.2 % (20.0-50.0); MEAN CORPUSCULAR HEMOGLOBIN 30.1 pg (28.0-32.0); MEAN PLATELET VOLUME 8.5 fl (7.4-10.4); MONOCYTES % 9.2 % (2.0-8.0); NEUTROPHILS % 75.1 % (40.0-76.0); PLATELET 172 x1000/uL (130-400); RED BLOOD CELL COUNT 2.86 mill/uL (4.7-6.1); RED CELL DISTRIBUTION WIDTH 16.5 % (11.6-14.6)
[2019-12-13 05:53] LABS: PHOSPHORUS 4.7 mg/dL (2.5-4.9)
[2019-12-13] MEDS: INSULIN LISPRO 100 UNITS/ML SUBCUT SCH ×3 (06:00→16:47)
[2019-12-13] MEDS: DEXT 5%/0.9% NACL 1,000 ML IV SCH (06:00)
[2019-12-13] MEDS: BLOOD SUGAR DIAGNOSTIC STRIP TEST SCH ×3 (06:21→16:47)
[2019-12-13] MEDS: SIMETHICONE 40 MG/0.6 ML 30ML PO SCH ×4 (06:31→21:46)
[2019-12-13] MEDS: METOCLOPRAMIDE HCL 10MG/2ML VIAL IV SCH ×4 (06:31→23:21)
[2019-12-13] MEDS: FENTANYL CITRATE/PF 500 MCG in SODIUM CHLORIDE 0.9% 40 ML IV PRN ×3 (06:31→23:11)
[2019-12-13] MEDS: CALCIUM ACETATE 667 MG TABLET PO SCH ×3 (06:32→16:46)
[2019-12-13] MEDS: DOCUSATE SODIUM SUGAR FREE 100MG/10ML UDC NG SCH ×2 (09:56→16:52)
[2019-12-13] MEDS: LEVETIRACETAM 500MG PREMIX 100 ML IV SCH ×2 (09:56→21:45)
[2019-12-13] MEDS: MIDODRINE HCL 5MG TABLET PO SCH ×2 (09:57→12:27)
[2019-12-13] MEDS: INSULIN GLARGINE UD 100 UNITS/ML SYR SUBCUT SCH (09:59)
[2019-12-13 15:15] LABS: BG BASE EXCESS -2.5 mmol/L (-2.0-2.0); BG CARBOXYHEMOGLOBIN 0.3 % (0.5-1.5); BG DEOXYHEMOGLOBIN 5.4 % (0.0-5.0); BG FRACTION INSPIRED OXYGEN 40; BG HCO3 ACT 20.3 mmol/L (22.0-26.0); BG METHEMOGLOBIN 0.1 % (0.0-1.5); BG OXYGEN SATURATION 94.6 % (92.0-98.5); BG OXYHEMOGLOBIN 94.2 % (94.0-97.0); BG PCO2 28.6 mmHg (35.0-45.0); BG PH 7.469 (7.350-7.450); BG PO2 74.9 mmHg (75.0-100.0); BG SAMPLE SITE RIGHT RADIAL; BG TIDAL VOLUME(mL) 500 mL; BG TOTAL HEMOGLOBIN 10.7 g/dL (12.0-18.0); BG VENT MODE VENT - A/C; BG VENT RATE 24 set
[2019-12-13] MEDS: MIDODRINE HCL 5MG TABLET NG SCH ×2 (16:47→23:21)
[2019-12-13] MEDS: DILTIAZEM HCL 30MG TABLET NG SCH (21:45)
[2019-12-13] MEDS: FAMOTIDINE 20MG TABLET PO SCH (21:46)
[2019-12-14] VITALS (89 sets, daily range): BP systolic 88–154; BP diastolic 45–93
[2019-12-14] MEDS: IPRATROPIUM/ALBUTEROL 0.5-3(2.5)MG/3ML NEB HHN SCH ×5 (03:56→20:13)
[2019-12-14] MEDS: FENTANYL CITRATE/PF 500 MCG in SODIUM CHLORIDE 0.9% 40 ML IV PRN (05:21)
[2019-12-14] MEDS: CALCIUM ACETATE 667 MG TABLET PO SCH ×3 (06:10→17:00)
[2019-12-14] MEDS: METOCLOPRAMIDE HCL 10MG/2ML VIAL IV SCH ×4 (06:10→23:59)
[2019-12-14] MEDS: DILTIAZEM HCL 30MG TABLET NG SCH ×3 (06:10→17:15)
[2019-12-14] MEDS: SIMETHICONE 40 MG/0.6 ML 30ML PO SCH ×4 (06:37→21:24)
[2019-12-14] MEDS: DOCUSATE SODIUM SUGAR FREE 100MG/10ML UDC NG SCH ×2 (09:06→17:15)
[2019-12-14] MEDS: LEVETIRACETAM 500MG PREMIX 100 ML IV SCH (09:06)
[2019-12-14] MEDS: MIDODRINE HCL 5MG TABLET NG SCH ×2 (09:07→17:49)
[2019-12-14] MEDS: INSULIN GLARGINE UD 100 UNITS/ML SYR SUBCUT SCH (09:08)
[2019-12-14 10:30] LABS: HEMATOCRIT. 25.1 % (42.0-52.0); HEMOGLOBIN. 8.2 g/dL (14.0-18.0); MEAN CORPUSCULAR HEMOGLOBIN 29.7 pg (28.0-32.0); MEAN CORPUSCULAR VOLUME 90.7 fL (80.0-94.0); MEAN PLATELET VOLUME 9.4 fl (7.4-10.4); PLATELET 185 x1000/uL (130-400); RED BLOOD CELL COUNT 2.77 mill/uL (4.7-6.1); RED CELL DISTRIBUTION WIDTH 16.6 % (11.6-14.6)
[2019-12-14] MEDS ORDERED: MORPHINE SULFATE 2 MG/ML CPJ (NOT FOR IM USE) IV PRN (10:30)
[2019-12-14] MEDS ORDERED: CEFAZOLIN 1000MG PREMIX 50 ML IV ONE ×2 (11:30→11:36)
[2019-12-14] MEDS ORDERED: LIDOCAINE HCL 1% 20ML VIAL (Pyxis) INJ ONE (11:36)
[2019-12-14] MEDS ORDERED: SODIUM BICARBONATE 4% (2.4MEQ) 5ML VIAL IV ONE (11:36)
[2019-12-14 11:51] LABS: PLATELET ESTIMATE NORMAL
[2019-12-14] MEDS: BLOOD SUGAR DIAGNOSTIC STRIP TEST SCH ×3 (12:15→23:53)
[2019-12-14] MEDS: INSULIN LISPRO 100 UNITS/ML SUBCUT SCH ×3 (12:30→23:53)
[2019-12-14] MEDS ORDERED: IODIXANOL 320MG/ML 100 ML BOTTLE IV ONE (12:53)
[2019-12-14] MEDS: ACETYLCYSTEINE 100MG/ML 10% VIAL 4ML INH SCH (16:36)
[2019-12-14] MEDS: LORAZEPAM 2MG/ML CPJ IV PRN ×2 (17:14→23:22)
[2019-12-14] MEDS: ACETAMINOPHEN 650MG/20.3ML UDC PO PRN (17:51)
[2019-12-14] MEDS: FAMOTIDINE 20MG TABLET PO SCH (21:24)
[2019-12-15] VITALS (62 sets, daily range): BP systolic 100–166; BP diastolic 30–113
[2019-12-15] MEDS: IPRATROPIUM/ALBUTEROL 0.5-3(2.5)MG/3ML NEB HHN SCH ×6 (00:26→21:00)
[2019-12-15] MEDS: ACETYLCYSTEINE 100MG/ML 10% VIAL 4ML INH SCH ×3 (00:26→16:33)
[2019-12-15] MEDS ORDERED: MORPHINE SULFATE 2 MG/ML CPJ (NOT FOR IM USE) IV PRN (02:00)
[2019-12-15] MEDS: LORAZEPAM 2MG/ML CPJ IV PRN ×3 (02:08→17:58)
[2019-12-15] MEDS: INSULIN LISPRO 100 UNITS/ML SUBCUT SCH ×3 (05:56→18:00)
[2019-12-15] MEDS: BLOOD SUGAR DIAGNOSTIC STRIP TEST SCH ×3 (05:56→18:00)
[2019-12-15] MEDS: DEXTROSE 50% WATER 50ML SYRINGE IV PRN ×2 (06:02→18:21)
[2019-12-15] MEDS: DILTIAZEM HCL 30MG TABLET NG SCH ×4 (06:03→17:57)
[2019-12-15] MEDS: METOCLOPRAMIDE HCL 10MG/2ML VIAL IV SCH ×3 (06:03→17:57)
[2019-12-15] MEDS: CALCIUM ACETATE 667 MG TABLET PO SCH ×3 (06:03→17:58)
[2019-12-15 06:28] LABS: EOSINOPHILS % 1.1 % (0.0-5.0); LYMPHOCYTES % 17.9 % (20.0-50.0); MEAN CORPUSCULAR HEMOGLOBIN 29.1 pg (28.0-32.0); MEAN CORPUSCULAR VOLUME 90.5 fL (80.0-94.0); MONOCYTES % 8.8 % (2.0-8.0); NEUTROPHILS % 71.2 % (40.0-76.0); RED BLOOD CELL COUNT 3.09 mill/uL (4.7-6.1); RED CELL DISTRIBUTION WIDTH 16.5 % (11.6-14.6)
[2019-12-15] MEDS: SIMETHICONE 40 MG/0.6 ML 30ML PO SCH ×4 (06:43→20:08)
[2019-12-15 07:06] LABS: PHOSPHORUS 3.9 mg/dL (2.5-4.9)
[2019-12-15] MEDS: ACETAMINOPHEN 650MG/20.3ML UDC PO PRN (09:19)
[2019-12-15] MEDS: LEVETIRACETAM 500MG/5ML CUP PO SCH ×2 (09:19→20:08)
[2019-12-15] MEDS: DOCUSATE SODIUM SUGAR FREE 100MG/10ML UDC NG SCH ×2 (09:19→17:57)
[2019-12-15] MEDS: MIDODRINE HCL 5MG TABLET NG SCH ×3 (09:20→13:07)
[2019-12-15] MEDS: INSULIN GLARGINE UD 100 UNITS/ML SYR SUBCUT SCH (09:21)
[2019-12-15 12:48] LABS: PLATELET 187 x1000/uL (130-400)
[2019-12-15] MEDS: CEFEPIME 1,000 MG in DEXTROSE 5% WATER 50 ML IV SCH (13:08)
[2019-12-15] MEDS ORDERED: HEPARIN SODIUM 1,000 UNIT/1ML VIAL IV NR (14:00)
[2019-12-15] MEDS: LACTULOSE 20G/30ML UDC PO SCH ×2 (17:57→22:37)
[2019-12-15] MEDS: FAMOTIDINE 20MG TABLET PO SCH (20:08)
[2019-12-16] VITALS (14 sets, daily range): BP systolic 114–164; BP diastolic 52–113
[2019-12-16] MEDS: MIDODRINE HCL 5MG TABLET NG SCH ×2 (00:42→09:49)
[2019-12-16] MEDS: METOCLOPRAMIDE HCL 10MG/2ML VIAL IV SCH ×4 (00:42→18:21)
[2019-12-16] MEDS: DEXTROSE 50% WATER 50ML SYRINGE IV PRN (00:43)
[2019-12-16] MEDS: ACETYLCYSTEINE 100MG/ML 10% VIAL 4ML INH SCH ×3 (00:47→15:15)
[2019-12-16] MEDS: IPRATROPIUM/ALBUTEROL 0.5-3(2.5)MG/3ML NEB HHN SCH ×5 (00:47→20:30)
[2019-12-16] MEDS: LORAZEPAM 2MG/ML CPJ IV PRN (01:49)
[2019-12-16] MEDS: DILTIAZEM HCL 30MG TABLET NG SCH ×2 (05:46)
[2019-12-16] MEDS: LACTULOSE 20G/30ML UDC PO SCH ×3 (05:47→21:18)
[2019-12-16] MEDS: BLOOD SUGAR DIAGNOSTIC STRIP TEST SCH ×4 (05:47→18:17)
[2019-12-16] MEDS: INSULIN LISPRO 100 UNITS/ML SUBCUT SCH ×4 (05:47→18:00)
[2019-12-16] MEDS: DEXT 5%/0.9% NACL 1,000 ML IV SCH (06:00)
[2019-12-16 06:47] LABS: BASOPHILS % 1.2 % (0.0-2.0); EOSINOPHILS % 2.3 % (0.0-5.0); HEMATOCRIT. 25.6 % (42.0-52.0); HEMOGLOBIN. 8.1 g/dL (14.0-18.0); LYMPHOCYTES % 17.9 % (20.0-50.0); MEAN CORPUSCULAR HEMOGLOBIN 28.8 pg (28.0-32.0); MEAN CORPUSCULAR VOLUME 90.5 fL (80.0-94.0); MEAN PLATELET VOLUME 9.2 fl (7.4-10.4); MONOCYTES % 6.9 % (2.0-8.0); NEUTROPHILS % 71.7 % (40.0-76.0); PLATELET 205 x1000/uL (130-400); RED BLOOD CELL COUNT 2.83 mill/uL (4.7-6.1); RED CELL DISTRIBUTION WIDTH 16.2 % (11.6-14.6)
[2019-12-16 06:48] LABS: CHLORIDE 111 mEq/L (98-107)
[2019-12-16 06:55] LABS: PHOSPHORUS 3.6 mg/dL (2.5-4.9)
[2019-12-16] MEDS: LEVETIRACETAM 500MG/5ML CUP PO SCH ×2 (09:47→21:17)
[2019-12-16] MEDS: SIMETHICONE 40 MG/0.6 ML 30ML PO SCH ×4 (09:49→22:41)
[2019-12-16] MEDS: CALCIUM ACETATE 667 MG TABLET PO SCH ×3 (09:49→18:21)
[2019-12-16] MEDS: DOCUSATE SODIUM SUGAR FREE 100MG/10ML UDC NG SCH ×2 (09:50→18:21)
[2019-12-16] MEDS ORDERED: DILTIAZEM HCL 5MG/ML 5ML VIAL IV PRN (10:15)
[2019-12-16] MEDS: CEFEPIME 1,000 MG in DEXTROSE 5% WATER 50 ML IV SCH (12:16)
[2019-12-16] MEDS: DILTIAZEM HCL 60MG TABLET NG SCH ×2 (13:49→21:18)
[2019-12-16] MEDS: INSULIN GLARGINE UD 100 UNITS/ML SYR SUBCUT SCH (13:51)
[2019-12-16] MEDS: ACETAMINOPHEN 650MG/20.3ML UDC PO PRN (21:17)
[2019-12-16] MEDS: FAMOTIDINE 20MG TABLET PO SCH (21:18)
[2019-12-17] VITALS (13 sets, daily range): BP systolic 114–154; BP diastolic 50–81
[2019-12-17] MEDS: IPRATROPIUM/ALBUTEROL 0.5-3(2.5)MG/3ML NEB HHN SCH ×5 (00:16→19:52)
[2019-12-17] MEDS: ACETYLCYSTEINE 100MG/ML 10% VIAL 4ML INH SCH ×2 (00:17→16:07)
[2019-12-17] MEDS: MIDODRINE HCL 5MG TABLET NG SCH ×3 (00:43→16:52)
[2019-12-17] MEDS: BLOOD SUGAR DIAGNOSTIC STRIP TEST SCH ×5 (00:43→23:56)
[2019-12-17] MEDS: METOCLOPRAMIDE HCL 10MG/2ML VIAL IV SCH ×4 (00:43→18:13)
[2019-12-17] MEDS: DEXT 5%/0.9% NACL 1,000 ML IV SCH ×2 (03:26→06:00)
[2019-12-17] MEDS: INSULIN LISPRO 100 UNITS/ML SUBCUT SCH ×4 (06:00→18:00)
[2019-12-17] MEDS: DILTIAZEM HCL 60MG TABLET NG SCH ×3 (06:06→21:39)
[2019-12-17] MEDS: LACTULOSE 20G/30ML UDC PO SCH (06:07)
[2019-12-17 06:53] LABS: BASOPHILS % 1.4 % (0.0-2.0); EOSINOPHILS % 3.5 % (0.0-5.0); HEMATOCRIT. 24.2 % (42.0-52.0); LYMPHOCYTES % 19.8 % (20.0-50.0); MEAN CORPUSCULAR HEMOGLOBIN 29.6 pg (28.0-32.0); MEAN CORPUSCULAR VOLUME 90.3 fL (80.0-94.0); MEAN PLATELET VOLUME 9.3 fl (7.4-10.4); MONOCYTES % 7.5 % (2.0-8.0); NEUTROPHILS % 67.8 % (40.0-76.0); PLATELET 225 x1000/uL (130-400); RED BLOOD CELL COUNT 2.69 mill/uL (4.7-6.1)
[2019-12-17 07:24] LABS: CHLORIDE 111 mEq/L (98-107)
[2019-12-17 07:38] LABS: PHOSPHORUS 4.4 mg/dL (2.5-4.9)
[2019-12-17 07:52] LABS: HEPATITIS B SURFACE ANTIGEN NEGATIVE
[2019-12-17 07:56] LABS: BG BASE EXCESS -0.9 mmol/L (-2.0-2.0); BG CARBOXYHEMOGLOBIN 0.3 % (0.5-1.5); BG DEOXYHEMOGLOBIN 6.3 % (0.0-5.0); BG FRACTION INSPIRED OXYGEN 40; BG HCO3 ACT 23.4 mmol/L (22.0-26.0); BG METHEMOGLOBIN 0.4 % (0.0-1.5); BG OXYGEN SATURATION 93.7 % (92.0-98.5); BG PCO2 36.7 mmHg (35.0-45.0); BG PH 7.422 (7.350-7.450); BG PO2 71.4 mmHg (75.0-100.0); BG SAMPLE SITE RIGHT RADIAL; BG TIDAL VOLUME(mL) 500 mL; BG TOTAL HEMOGLOBIN 7.9 g/dL (12.0-18.0); BG VENT MODE VENT - A/C; BG VENT RATE 20 set
[2019-12-17] MEDS: CALCIUM ACETATE 667 MG TABLET PO SCH ×3 (08:00→17:30)
[2019-12-17 08:22] LABS: HEPATITIS A AB IGM NEGATIVE (NEGATIVE)
[2019-12-17] MEDS: LEVETIRACETAM 500MG/5ML CUP PO SCH ×2 (09:31→21:39)
[2019-12-17] MEDS: ACETAMINOPHEN 650MG/20.3ML UDC PO PRN (09:31)
[2019-12-17] MEDS: SIMETHICONE 40 MG/0.6 ML 30ML PO SCH ×2 (09:32→14:02)
[2019-12-17] MEDS: DOCUSATE SODIUM SUGAR FREE 100MG/10ML UDC NG SCH ×2 (09:32→17:00)
[2019-12-17] MEDS: CEFEPIME 1,000 MG in DEXTROSE 5% WATER 50 ML IV SCH (11:54)
[2019-12-17] MEDS ORDERED: NA PHOS,M-B/NA PHOS,DI-BA ENEMA 118ML PR NR (12:45)
[2019-12-17] MEDS ORDERED: BISACODYL 10MG SUPP PR NR ×2 (12:45→14:45)
[2019-12-17] MEDS ORDERED: KCL 20MEQ/100ML PREMIX 100 ML IV NR ×2 (13:00→18:00)
[2019-12-17] MEDS: LORAZEPAM 2MG/ML CPJ IV PRN ×2 (13:35→17:15)
[2019-12-17] MEDS: MORPHINE SULFATE 2 MG/ML CPJ (NOT FOR IM USE) IV PRN (14:27)
[2019-12-17] MEDS: SIMETHICONE 80MG TABLET CHEW PO SCH ×2 (17:31→21:39)
[2019-12-17] MEDS: LACTULOSE 20G/30ML UDC NG SCH (21:39)
[2019-12-17] MEDS: FAMOTIDINE 20MG TABLET PO SCH (21:39)
[2019-12-18] VITALS (9 sets, daily range): BP systolic 105–159; BP diastolic 56–99
[2019-12-18] MEDS: METOCLOPRAMIDE HCL 10MG/2ML VIAL IV SCH ×5 (00:06→23:43)
[2019-12-18] MEDS: MIDODRINE HCL 5MG TABLET NG SCH ×4 (00:07→23:43)
[2019-12-18] MEDS: ACETYLCYSTEINE 100MG/ML 10% VIAL 4ML INH SCH ×3 (00:08→16:45)
[2019-12-18] MEDS: IPRATROPIUM/ALBUTEROL 0.5-3(2.5)MG/3ML NEB HHN SCH ×6 (00:08→21:06)
[2019-12-18] MEDS: DEXTROSE 50% WATER 50ML SYRINGE IV PRN (00:17)
[2019-12-18] MEDS: LACTULOSE 20G/30ML UDC NG SCH ×3 (05:15→21:42)
[2019-12-18] MEDS: BLOOD SUGAR DIAGNOSTIC STRIP TEST SCH ×3 (05:16→17:36)
[2019-12-18] MEDS: DILTIAZEM HCL 60MG TABLET NG SCH ×3 (05:19→21:43)
[2019-12-18] MEDS: INSULIN LISPRO 100 UNITS/ML SUBCUT SCH ×4 (05:31→17:46)
[2019-12-18] MEDS: DEXT 5%/0.9% NACL 1,000 ML IV SCH ×2 (06:00→19:42)
[2019-12-18 06:11] LABS: BASOPHILS % 1.1 % (0.0-2.0); EOSINOPHILS % 2.8 % (0.0-5.0); HEMATOCRIT. 24.5 % (42.0-52.0); HEMOGLOBIN. 8.1 g/dL (14.0-18.0); LYMPHOCYTES % 25.2 % (20.0-50.0); MEAN CORPUSCULAR HEMOGLOBIN 29.7 pg (28.0-32.0); MEAN CORPUSCULAR VOLUME 90.2 fL (80.0-94.0); MEAN PLATELET VOLUME 9.2 fl (7.4-10.4); MONOCYTES % 7.6 % (2.0-8.0); NEUTROPHILS % 63.3 % (40.0-76.0); PLATELET 236 x1000/uL (130-400); RED BLOOD CELL COUNT 2.72 mill/uL (4.7-6.1); RED CELL DISTRIBUTION WIDTH 16.1 % (11.6-14.6)
[2019-12-18] MEDS ORDERED: NA PHOS,M-B/NA PHOS,DI-BA ENEMA 118ML PR NR (08:00)
[2019-12-18] MEDS ORDERED: BISACODYL 10MG SUPP PR PRN (08:00)
[2019-12-18] MEDS: DOCUSATE SODIUM SUGAR FREE 100MG/10ML UDC NG SCH ×2 (09:00→21:41)
[2019-12-18] MEDS ORDERED: KCL 20MEQ/100ML PREMIX 100 ML IV NR ×2 (10:00→22:00)
[2019-12-18] MEDS: SIMETHICONE 80MG TABLET CHEW PO SCH ×4 (10:17→21:42)
[2019-12-18] MEDS: ACETAMINOPHEN 650MG/20.3ML UDC PO PRN ×2 (10:18→17:35)
[2019-12-18] MEDS: LORAZEPAM 2MG/ML CPJ IV PRN ×2 (10:33→19:41)
[2019-12-18] MEDS: LEVETIRACETAM 500MG/5ML CUP PO SCH ×2 (10:34→21:42)
[2019-12-18 10:51] LABS: BG BASE EXCESS -2.1 mmol/L (-2.0-2.0); BG CARBOXYHEMOGLOBIN 0.3 % (0.5-1.5); BG DEOXYHEMOGLOBIN 7.4 % (0.0-5.0); BG FRACTION INSPIRED OXYGEN 40; BG HCO3 ACT 21.4 mmol/L (22.0-26.0); BG METHEMOGLOBIN 0.3 % (0.0-1.5); BG OXYGEN SATURATION 92.6 % (92.0-98.5); BG PCO2 31.3 mmHg (35.0-45.0); BG PH 7.452 (7.350-7.450); BG PO2 65.9 mmHg (75.0-100.0); BG SAMPLE SITE RIGHT RADIAL; BG TIDAL VOLUME(mL) 500 mL; BG TOTAL HEMOGLOBIN 8.6 g/dL (12.0-18.0); BG VENT MODE VENT - A/C; BG VENT RATE 20 set
[2019-12-18] MEDS: CEFEPIME 1,000 MG in DEXTROSE 5% WATER 50 ML IV SCH (12:00)
[2019-12-18] MEDS: METRONIDAZOLE 500 MG PREMIX 100 ML IV SCH ×2 (13:46→21:43)
[2019-12-18] MEDS: CALCIUM ACETATE 667 MG TABLET PO SCH ×2 (13:47→17:37)
[2019-12-18] MEDS: FAMOTIDINE 20MG TABLET PO SCH (21:42)
[2019-12-18] MEDS: MORPHINE SULFATE 2 MG/ML CPJ (NOT FOR IM USE) IV PRN (23:43)
[2019-12-19] VITALS (25 sets, daily range): BP systolic 73–127; BP diastolic 40–84
[2019-12-19] MEDS: BLOOD SUGAR DIAGNOSTIC STRIP TEST SCH ×5 (00:37→23:20)
[2019-12-19] MEDS: IPRATROPIUM/ALBUTEROL 0.5-3(2.5)MG/3ML NEB HHN SCH ×6 (00:39→20:43)
[2019-12-19] MEDS: ACETYLCYSTEINE 100MG/ML 10% VIAL 4ML INH SCH ×2 (00:57→08:38)
[2019-12-19] MEDS: LORAZEPAM 2MG/ML CPJ IV PRN ×4 (01:40→18:40)
[2019-12-19] MEDS: METOCLOPRAMIDE HCL 10MG/2ML VIAL IV SCH ×4 (05:52→23:19)
[2019-12-19] MEDS: LACTULOSE 20G/30ML UDC NG SCH ×3 (05:52→22:08)
[2019-12-19] MEDS: METRONIDAZOLE 500 MG PREMIX 100 ML IV SCH ×3 (05:52→22:08)
[2019-12-19] MEDS: INSULIN LISPRO 100 UNITS/ML SUBCUT SCH ×5 (06:00→23:27)
[2019-12-19] MEDS: DILTIAZEM HCL 60MG TABLET NG SCH ×3 (06:00→22:08)
[2019-12-19 07:54] LABS: BASOPHILS % 1.1 % (0.0-2.0); EOSINOPHILS % 1.5 % (0.0-5.0); HEMATOCRIT. 23.8 % (42.0-52.0); HEMOGLOBIN. 7.8 g/dL (14.0-18.0); LYMPHOCYTES % 19.1 % (20.0-50.0); MEAN CORPUSCULAR HEMOGLOBIN 29.5 pg (28.0-32.0); MEAN CORPUSCULAR VOLUME 89.8 fL (80.0-94.0); MONOCYTES % 7.4 % (2.0-8.0); NEUTROPHILS % 70.9 % (40.0-76.0); PLATELET 243 x1000/uL (130-400); RED BLOOD CELL COUNT 2.65 mill/uL (4.7-6.1); RED CELL DISTRIBUTION WIDTH 15.7 % (11.6-14.6)
[2019-12-19 08:01] LABS: CHLORIDE 114 mEq/L (98-107)
[2019-12-19 08:12] LABS: PHOSPHORUS 4.6 mg/dL (2.5-4.9)
[2019-12-19] MEDS: SIMETHICONE 80MG TABLET CHEW PO SCH ×4 (08:59→22:07)
[2019-12-19] MEDS: DOCUSATE SODIUM SUGAR FREE 100MG/10ML UDC NG SCH ×2 (08:59→17:56)
[2019-12-19] MEDS: LEVETIRACETAM 500MG/5ML CUP PO SCH ×2 (08:59→22:08)
[2019-12-19] MEDS: MIDODRINE HCL 5MG TABLET NG SCH ×3 (09:00→23:20)
[2019-12-19] MEDS: CALCIUM ACETATE 667 MG TABLET PO SCH ×3 (09:03→17:56)
[2019-12-19] MEDS: CEFEPIME 1,000 MG in DEXTROSE 5% WATER 50 ML IV SCH (11:07)
[2019-12-19] MEDS ORDERED: POTASSIUM CHLORIDE INJ 40 MEQ in DEXT 5% WATER 250 ML IV NR (11:30)
[2019-12-19] MEDS: DEXT 5%/0.9% NACL 1,000 ML IV SCH (18:50)
[2019-12-19] MEDS: FAMOTIDINE 20MG TABLET PO SCH (22:08)
[2019-12-19] MEDS: MORPHINE SULFATE 2 MG/ML CPJ (NOT FOR IM USE) IV PRN (22:20)
[2019-12-20] VITALS (12 sets, daily range): BP systolic 101–124; BP diastolic 44–96
[2019-12-20] MEDS: IPRATROPIUM/ALBUTEROL 0.5-3(2.5)MG/3ML NEB HHN SCH ×6 (00:30→20:27)
[2019-12-20] MEDS: DILTIAZEM HCL 60MG TABLET NG SCH ×3 (05:41→22:14)
[2019-12-20] MEDS: LACTULOSE 20G/30ML UDC NG SCH ×3 (05:41→22:12)
[2019-12-20] MEDS: METOCLOPRAMIDE HCL 10MG/2ML VIAL IV SCH ×3 (05:42→17:31)
[2019-12-20] MEDS: BLOOD SUGAR DIAGNOSTIC STRIP TEST SCH ×3 (05:42→17:09)
[2019-12-20] MEDS: INSULIN LISPRO 100 UNITS/ML SUBCUT SCH ×3 (05:46→17:32)
[2019-12-20] MEDS: METRONIDAZOLE 500 MG PREMIX 100 ML IV SCH ×3 (05:57→22:15)
[2019-12-20 06:21] LABS: BASOPHILS % 1.3 % (0.0-2.0); EOSINOPHILS % 5.1 % (0.0-5.0); HEMATOCRIT. 22.9 % (42.0-52.0); HEMOGLOBIN. 7.6 g/dL (14.0-18.0); LYMPHOCYTES % 25.3 % (20.0-50.0); MEAN CORPUSCULAR HEMOGLOBIN 29.6 pg (28.0-32.0); MEAN CORPUSCULAR VOLUME 89.4 fL (80.0-94.0); MEAN PLATELET VOLUME 9.3 fl (7.4-10.4); MONOCYTES % 8.5 % (2.0-8.0); NEUTROPHILS % 59.8 % (40.0-76.0); PLATELET 233 x1000/uL (130-400); RED BLOOD CELL COUNT 2.56 mill/uL (4.7-6.1)
[2019-12-20 06:57] LABS: PHOSPHORUS 3.3 mg/dL (2.5-4.9)
[2019-12-20] MEDS ORDERED: POTASSIUM CHLORIDE 20MEQ TABLET SR PO NR (07:55)
[2019-12-20] MEDS: DOCUSATE SODIUM SUGAR FREE 100MG/10ML UDC NG SCH ×2 (08:47→17:10)
[2019-12-20] MEDS: LEVETIRACETAM 500MG/5ML CUP PO SCH ×2 (08:48→22:12)
[2019-12-20] MEDS: MIDODRINE HCL 5MG TABLET NG SCH ×2 (08:49→16:00)
[2019-12-20] MEDS: SIMETHICONE 80MG TABLET CHEW PO SCH ×4 (08:50→22:14)
[2019-12-20] MEDS: ACETAMINOPHEN 650MG/20.3ML UDC PO PRN (08:51)
[2019-12-20] MEDS: CALCIUM ACETATE 667 MG TABLET PO SCH ×3 (08:52→17:32)
[2019-12-20] MEDS ORDERED: POTASSIUM CHLORIDE INJ 40 MEQ in DEXT 5% WATER 250 ML IV NR (09:00)
[2019-12-20] MEDS: CEFEPIME 1,000 MG in DEXTROSE 5% WATER 50 ML IV SCH (13:05)
[2019-12-20] MEDS ORDERED: POTASSIUM CHLORIDE INJ 80 MEQ in SODIUM CHLORIDE 0.9% 500 ML IV NR (20:00)
[2019-12-20] MEDS: FAMOTIDINE 20MG TABLET PO SCH (22:14)
[2019-12-21] VITALS (12 sets, daily range): BP systolic 109–161; BP diastolic 51–80
[2019-12-21] MEDS: MIDODRINE HCL 5MG TABLET NG SCH ×3 (00:25→17:26)
[2019-12-21] MEDS: BLOOD SUGAR DIAGNOSTIC STRIP TEST SCH ×4 (00:25→18:49)
[2019-12-21] MEDS: METOCLOPRAMIDE HCL 10MG/2ML VIAL IV SCH ×4 (00:25→17:26)
[2019-12-21] MEDS: IPRATROPIUM/ALBUTEROL 0.5-3(2.5)MG/3ML NEB HHN SCH ×7 (00:29→23:42)
[2019-12-21] MEDS: DEXT 5%/0.9% NACL 1,000 ML IV SCH (05:18)
[2019-12-21] MEDS: INSULIN LISPRO 100 UNITS/ML SUBCUT SCH ×4 (05:18→18:00)
[2019-12-21] MEDS: DILTIAZEM HCL 60MG TABLET NG SCH ×2 (05:33→15:10)
[2019-12-21] MEDS: LACTULOSE 20G/30ML UDC NG SCH ×3 (05:33→21:07)
[2019-12-21] MEDS: METRONIDAZOLE 500 MG PREMIX 100 ML IV SCH ×4 (05:33→22:08)
[2019-12-21 06:33] LABS: BASOPHILS % 1.7 % (0.0-2.0); EOSINOPHILS % 6.7 % (0.0-5.0); HEMATOCRIT. 21.6 % (42.0-52.0); HEMOGLOBIN. 7.1 g/dL (14.0-18.0); LYMPHOCYTES % 29.3 % (20.0-50.0); MEAN CORPUSCULAR HEMOGLOBIN 29.2 pg (28.0-32.0); MEAN CORPUSCULAR VOLUME 88.7 fL (80.0-94.0); MEAN PLATELET VOLUME 9.4 fl (7.4-10.4); MONOCYTES % 8.5 % (2.0-8.0); NEUTROPHILS % 53.8 % (40.0-76.0); PLATELET 223 x1000/uL (130-400); RED BLOOD CELL COUNT 2.43 mill/uL (4.7-6.1)
[2019-12-21 07:47] LABS: PHOSPHORUS 3.1 mg/dL (2.5-4.9)
[2019-12-21] MEDS: CALCIUM ACETATE 667 MG TABLET PO SCH ×3 (08:00→17:26)
[2019-12-21] MEDS: LEVETIRACETAM 500MG/5ML CUP PO SCH ×2 (08:47→20:59)
[2019-12-21] MEDS: DOCUSATE SODIUM SUGAR FREE 100MG/10ML UDC NG SCH ×2 (08:47→17:25)
[2019-12-21] MEDS: PANTOPRAZOLE SODIUM 40 MG/VIAL IV SCH (08:47)
[2019-12-21] MEDS: SIMETHICONE 80MG TABLET CHEW PO SCH ×4 (08:48→21:00)
[2019-12-21] MEDS ORDERED: KCL 20MEQ/100ML PREMIX 100 ML IV ONE (11:00)
[2019-12-21] MEDS ORDERED: POTASSIUM CHLORIDE INJ 30 MEQ in DEXT 5% WATER 250 ML IV SCH (11:00)
[2019-12-21] MEDS: CEFEPIME 1,000 MG in DEXTROSE 5% WATER 50 ML IV SCH (12:59)
[2019-12-21] MEDS: MORPHINE SULFATE 2 MG/ML CPJ (NOT FOR IM USE) IV PRN (19:57)
[2019-12-21] MEDS: FAMOTIDINE 20MG TABLET PO SCH (21:00)
[2019-12-21] MEDS ORDERED: LORAZEPAM 2MG/ML CPJ IV NR (22:27)
[2019-12-22] VITALS (56 sets, daily range): BP systolic 86–141; BP diastolic 42–94
[2019-12-22] MEDS: METOCLOPRAMIDE HCL 10MG/2ML VIAL IV SCH ×5 (00:22→23:31)
[2019-12-22] MEDS: MIDODRINE HCL 5MG TABLET NG SCH ×4 (00:23→23:31)
[2019-12-22] MEDS: DILTIAZEM HCL 60MG TABLET NG SCH ×4 (02:56→21:03)
[2019-12-22] MEDS: MORPHINE SULFATE 2 MG/ML CPJ (NOT FOR IM USE) IV PRN ×3 (03:38→16:25)
[2019-12-22] MEDS: IPRATROPIUM/ALBUTEROL 0.5-3(2.5)MG/3ML NEB HHN SCH ×5 (03:58→23:40)
[2019-12-22] MEDS: INSULIN LISPRO 100 UNITS/ML SUBCUT SCH ×5 (06:00→23:22)
[2019-12-22] MEDS: BLOOD SUGAR DIAGNOSTIC STRIP TEST SCH ×5 (06:00→23:18)
[2019-12-22] MEDS: DEXT 5%/0.9% NACL 1,000 ML IV SCH (06:00)
[2019-12-22] MEDS: LACTULOSE 20G/30ML UDC NG SCH ×3 (06:00→21:09)
[2019-12-22] MEDS: METRONIDAZOLE 500 MG PREMIX 100 ML IV SCH ×3 (06:29→21:09)
[2019-12-22 07:17] LABS: BASOPHILS % 1.4 % (0.0-2.0); EOSINOPHILS % 4.5 % (0.0-5.0); HEMATOCRIT. 23.1 % (42.0-52.0); HEMOGLOBIN. 7.5 g/dL (14.0-18.0); MEAN CORPUSCULAR HEMOGLOBIN 29.3 pg (28.0-32.0); MEAN CORPUSCULAR VOLUME 89.9 fL (80.0-94.0); MEAN PLATELET VOLUME 9.1 fl (7.4-10.4); MONOCYTES % 8.8 % (2.0-8.0); NEUTROPHILS % 61.3 % (40.0-76.0); PLATELET 251 x1000/uL (130-400); RED BLOOD CELL COUNT 2.57 mill/uL (4.7-6.1); RED CELL DISTRIBUTION WIDTH 16.4 % (11.6-14.6)
[2019-12-22] MEDS: CALCIUM ACETATE 667 MG TABLET PO SCH ×2 (08:00→17:00)
[2019-12-22] MEDS: SIMETHICONE 80MG TABLET CHEW PO SCH ×4 (08:30→21:09)
[2019-12-22 08:52] LABS: PHOSPHORUS 3.6 mg/dL (2.5-4.9)
[2019-12-22] MEDS: PANTOPRAZOLE SODIUM 40 MG/VIAL IV SCH (09:00)
[2019-12-22] MEDS: DOCUSATE SODIUM SUGAR FREE 100MG/10ML UDC NG SCH ×2 (09:00→17:00)
[2019-12-22] MEDS: LEVETIRACETAM 500MG/5ML CUP PO SCH ×2 (09:00→21:09)
[2019-12-22] MEDS: LORAZEPAM 2MG/ML CPJ IV PRN (09:24)
[2019-12-22 11:46] LABS: BG BASE EXCESS -5.1 mmol/L (-2.0-2.0); BG CARBOXYHEMOGLOBIN 0.6 % (0.5-1.5); BG FRACTION INSPIRED OXYGEN 40; BG HCO3 ACT 18.7 mmol/L (22.0-26.0); BG METHEMOGLOBIN 0.5 % (0.0-1.5); BG OXYHEMOGLOBIN 94.9 % (94.0-97.0); BG PCO2 28.9 mmHg (35.0-45.0); BG PH 7.428 (7.350-7.450); BG PO2 84.6 mmHg (75.0-100.0); BG SAMPLE SITE RIGHT RADIAL; BG TIDAL VOLUME(mL) 500 mL; BG TOTAL HEMOGLOBIN 7.1 g/dL (12.0-18.0); BG VENT MODE VENT - A/C; BG VENT RATE 20 set
[2019-12-22] MEDS ORDERED: SODIUM BICARBONATE 4% (2.4MEQ) 5ML VIAL IV ONE (12:53)
[2019-12-22] MEDS ORDERED: LIDOCAINE HCL 1% 20ML VIAL (Pyxis) INJ ONE (12:53)
[2019-12-22] MEDS: CEFEPIME 1,000 MG in DEXTROSE 5% WATER 50 ML IV SCH (15:00)
[2019-12-22] MEDS ORDERED: DIPHENHYDRAMINE 50MG/ML VIAL IV PRN (17:30)
[2019-12-22] MEDS: FAMOTIDINE 20MG TABLET PO SCH (21:09)
[2019-12-23] VITALS (105 sets, daily range): BP systolic 77–187; BP diastolic 38–120
[2019-12-23] MEDS: MORPHINE SULFATE 2 MG/ML CPJ (NOT FOR IM USE) IV PRN ×2 (01:00→12:05)
[2019-12-23] MEDS: LORAZEPAM 2MG/ML CPJ IV PRN (01:46)
[2019-12-23] MEDS: FENTANYL CITRATE/PF 500 MCG in SODIUM CHLORIDE 0.9% 40 ML IV PRN ×2 (02:56→08:51)
[2019-12-23] MEDS: IPRATROPIUM/ALBUTEROL 0.5-3(2.5)MG/3ML NEB HHN SCH ×6 (03:56→23:47)
[2019-12-23] MEDS: INSULIN LISPRO 100 UNITS/ML SUBCUT SCH ×3 (06:00→18:00)
[2019-12-23] MEDS: DILTIAZEM HCL 60MG TABLET NG SCH ×3 (06:00→21:44)
[2019-12-23 06:16] LABS: BASOPHILS % 1.5 % (0.0-2.0); EOSINOPHILS % 6.5 % (0.0-5.0); HEMATOCRIT. 24.2 % (42.0-52.0); HEMOGLOBIN. 7.9 g/dL (14.0-18.0); LYMPHOCYTES % 23.9 % (20.0-50.0); MEAN CORPUSCULAR HEMOGLOBIN 29.1 pg (28.0-32.0); MEAN CORPUSCULAR VOLUME 88.8 fL (80.0-94.0); MEAN PLATELET VOLUME 9.1 fl (7.4-10.4); MONOCYTES % 9.2 % (2.0-8.0); NEUTROPHILS % 58.9 % (40.0-76.0); PLATELET 186 x1000/uL (130-400); RED BLOOD CELL COUNT 2.73 mill/uL (4.7-6.1); RED CELL DISTRIBUTION WIDTH 16.3 % (11.6-14.6)
[2019-12-23] MEDS: DEXT 5%/0.9% NACL 1,000 ML IV SCH (06:16)
[2019-12-23] MEDS: BLOOD SUGAR DIAGNOSTIC STRIP TEST SCH ×3 (06:16→18:55)
[2019-12-23 06:34] LABS: PHOSPHORUS 2.6 mg/dL (2.5-4.9)
[2019-12-23] MEDS: METOCLOPRAMIDE HCL 10MG/2ML VIAL IV SCH ×3 (06:37→19:00)
[2019-12-23] MEDS: METRONIDAZOLE 500 MG PREMIX 100 ML IV SCH ×3 (06:37→21:43)
[2019-12-23] MEDS: LACTULOSE 20G/30ML UDC NG SCH ×3 (06:37→21:43)
[2019-12-23] MEDS: SIMETHICONE 80MG TABLET CHEW PO SCH ×4 (06:37→21:43)
[2019-12-23] MEDS: CALCIUM ACETATE 667 MG TABLET PO SCH ×3 (06:46→19:01)
[2019-12-23] MEDS ORDERED: BISACODYL 10MG SUPP PR NR (09:15)
[2019-12-23] MEDS ORDERED: BISACODYL 10MG SUPP PR PRN (09:15)
[2019-12-23] MEDS: DOCUSATE SODIUM SUGAR FREE 100MG/10ML UDC NG SCH ×2 (09:22→19:00)
[2019-12-23] MEDS: MIDODRINE HCL 5MG TABLET NG SCH ×2 (09:22→19:00)
[2019-12-23] MEDS: LEVETIRACETAM 500MG/5ML CUP PO SCH ×2 (09:22→21:43)
[2019-12-23] MEDS: PANTOPRAZOLE SODIUM 40 MG/VIAL IV SCH (09:22)
[2019-12-23] MEDS ORDERED: POTASSIUM CHLORIDE INJ 40 MEQ in DEXT 5% WATER 250 ML IV SCH (11:00)
[2019-12-23] MEDS: ACETYLCYSTEINE 100MG/ML 10% VIAL 4ML INH SCH ×3 (12:18→23:46)
[2019-12-23] MEDS: FAMOTIDINE 20MG TABLET PO SCH (21:43)
[2019-12-23] MEDS: FENTANYL CITRATE/PF 1,000 MCG in SODIUM CHLORIDE 0.9% 80 ML IV PRN (21:46)
[2019-12-24] VITALS (99 sets, daily range): BP systolic 76–160; BP diastolic 35–78
[2019-12-24] MEDS: METOCLOPRAMIDE HCL 10MG/2ML VIAL IV SCH ×5 (00:24→23:39)
[2019-12-24] MEDS: NOREPINEPHRINE 16 MG in DEXT 5% WATER 234 ML IV PRN (01:01)
[2019-12-24] MEDS: IPRATROPIUM/ALBUTEROL 0.5-3(2.5)MG/3ML NEB HHN SCH ×5 (04:18→20:18)
[2019-12-24 05:59] LABS: EOSINOPHILS % 6.5 % (0.0-5.0); HEMATOCRIT. 23.1 % (42.0-52.0); HEMOGLOBIN. 7.6 g/dL (14.0-18.0); LYMPHOCYTES % 29.9 % (20.0-50.0); MEAN CORPUSCULAR VOLUME 88.3 fL (80.0-94.0); MEAN PLATELET VOLUME 9.6 fl (7.4-10.4); MONOCYTES % 8.8 % (2.0-8.0); NEUTROPHILS % 53.8 % (40.0-76.0); PLATELET 202 x1000/uL (130-400); RED BLOOD CELL COUNT 2.62 mill/uL (4.7-6.1); RED CELL DISTRIBUTION WIDTH 16.5 % (11.6-14.6)
[2019-12-24] MEDS: INSULIN LISPRO 100 UNITS/ML SUBCUT SCH ×4 (06:00→18:00)
[2019-12-24] MEDS: DILTIAZEM HCL 60MG TABLET NG SCH ×3 (06:00→21:01)
[2019-12-24] MEDS: LACTULOSE 20G/30ML UDC NG SCH ×3 (06:00→21:01)
[2019-12-24] MEDS: BLOOD SUGAR DIAGNOSTIC STRIP TEST SCH ×5 (06:11→23:39)
[2019-12-24] MEDS: CALCIUM ACETATE 667 MG TABLET PO SCH ×3 (06:12→18:32)
[2019-12-24 06:15] LABS: PHOSPHORUS 3.1 mg/dL (2.5-4.9)
[2019-12-24] MEDS: METRONIDAZOLE 500 MG PREMIX 100 ML IV SCH ×3 (06:19→21:01)
[2019-12-24] MEDS: DEXT 5%/0.9% NACL 1,000 ML IV SCH (06:19)
[2019-12-24] MEDS: ACETYLCYSTEINE 100MG/ML 10% VIAL 4ML INH SCH ×2 (08:11→16:13)
[2019-12-24 08:19] LABS: BG BASE EXCESS -2.7 mmol/L (-2.0-2.0); BG CARBOXYHEMOGLOBIN 0.3 % (0.5-1.5); BG DEOXYHEMOGLOBIN 3.8 % (0.0-5.0); BG FRACTION INSPIRED OXYGEN 40; BG HCO3 ACT 21.7 mmol/L (22.0-26.0); BG METHEMOGLOBIN 0.2 % (0.0-1.5); BG OXYGEN SATURATION 96.2 % (92.0-98.5); BG OXYHEMOGLOBIN 95.7 % (94.0-97.0); BG PCO2 35.2 mmHg (35.0-45.0); BG PH 7.407 (7.350-7.450); BG PO2 88.1 mmHg (75.0-100.0); BG SAMPLE SITE RIGHT RADIAL; BG TIDAL VOLUME(mL) 500 mL; BG TOTAL HEMOGLOBIN 8.3 g/dL (12.0-18.0); BG VENT MODE VENT - A/C; BG VENT RATE 20 set
[2019-12-24] MEDS: DOCUSATE SODIUM SUGAR FREE 100MG/10ML UDC NG SCH ×2 (09:43→18:30)
[2019-12-24] MEDS: PANTOPRAZOLE SODIUM 40 MG/VIAL IV SCH (09:43)
[2019-12-24] MEDS: LEVETIRACETAM 500MG/5ML CUP PO SCH ×2 (09:43→21:01)
[2019-12-24] MEDS: MIDODRINE HCL 5MG TABLET NG SCH ×4 (09:43→23:39)
[2019-12-24] MEDS: SIMETHICONE 80MG TABLET CHEW PO SCH ×4 (09:46→21:01)
[2019-12-24] MEDS: LORAZEPAM 2MG/ML CPJ IV PRN ×2 (12:23→21:02)
[2019-12-24] MEDS: FENTANYL CITRATE/PF 1,000 MCG in SODIUM CHLORIDE 0.9% 80 ML IV PRN (13:34)
[2019-12-24] MEDS ORDERED: MIDAZOLAM HCL 5 MG/5 ML VIAL ONE (16:30)
[2019-12-24] MEDS ORDERED: FENTANYL CITRATE/PF 50MCG/ML 2ML VIAL ONE (16:30)
[2019-12-24] MEDS: MORPHINE SULFATE 2 MG/ML CPJ (NOT FOR IM USE) IV PRN (18:12)
[2019-12-24] MEDS: FAMOTIDINE 20MG TABLET PO SCH (21:01)
[2019-12-25] VITALS (90 sets, daily range): BP systolic 86–155; BP diastolic 38–104
[2019-12-25] MEDS ORDERED: KCL 20MEQ/100ML PREMIX 100 ML IV NR
[2019-12-25] MEDS: IPRATROPIUM/ALBUTEROL 0.5-3(2.5)MG/3ML NEB HHN SCH ×6 (00:43→21:06)
[2019-12-25] MEDS: ACETYLCYSTEINE 100MG/ML 10% VIAL 4ML INH SCH ×3 (00:43→15:49)
[2019-12-25] MEDS: INSULIN LISPRO 100 UNITS/ML SUBCUT SCH ×5 (06:00→23:48)
[2019-12-25] MEDS: LACTULOSE 20G/30ML UDC NG SCH ×3 (06:02→21:47)
[2019-12-25] MEDS: BLOOD SUGAR DIAGNOSTIC STRIP TEST SCH ×4 (06:02→23:21)
[2019-12-25] MEDS: METOCLOPRAMIDE HCL 10MG/2ML VIAL IV SCH ×4 (06:03→23:20)
[2019-12-25] MEDS: DILTIAZEM HCL 60MG TABLET NG SCH ×3 (06:03→21:48)
[2019-12-25] MEDS: METRONIDAZOLE 500 MG PREMIX 100 ML IV SCH ×3 (06:04→21:49)
[2019-12-25] MEDS: MORPHINE SULFATE 2 MG/ML CPJ (NOT FOR IM USE) IV PRN ×2 (06:06→16:46)
[2019-12-25 06:10] LABS: BASOPHILS % 0.9 % (0.0-2.0); EOSINOPHILS % 5.3 % (0.0-5.0); HEMATOCRIT. 23.8 % (42.0-52.0); HEMOGLOBIN. 7.9 g/dL (14.0-18.0); LYMPHOCYTES % 38.5 % (20.0-50.0); MEAN CORPUSCULAR HEMOGLOBIN 29.1 pg (28.0-32.0); MEAN CORPUSCULAR VOLUME 87.5 fL (80.0-94.0); MEAN PLATELET VOLUME 9.4 fl (7.4-10.4); MONOCYTES % 9.4 % (2.0-8.0); NEUTROPHILS % 45.9 % (40.0-76.0); PLATELET 197 x1000/uL (130-400); RED BLOOD CELL COUNT 2.72 mill/uL (4.7-6.1); RED CELL DISTRIBUTION WIDTH 16.6 % (11.6-14.6)
[2019-12-25] MEDS: CALCIUM ACETATE 667 MG TABLET PO SCH ×3 (06:23→18:20)
[2019-12-25 06:42] LABS: PHOSPHORUS 2.3 mg/dL (2.5-4.9)
[2019-12-25] MEDS: SIMETHICONE 80MG TABLET CHEW PO SCH ×4 (07:30→21:48)
[2019-12-25] MEDS: DOCUSATE SODIUM SUGAR FREE 100MG/10ML UDC NG SCH ×2 (08:57→18:19)
[2019-12-25] MEDS: LEVETIRACETAM 500MG/5ML CUP PO SCH ×2 (08:57→21:47)
[2019-12-25] MEDS: MIDODRINE HCL 5MG TABLET NG SCH ×3 (08:58→23:21)
[2019-12-25] MEDS: PANTOPRAZOLE SODIUM 40 MG/VIAL IV SCH (08:58)
[2019-12-25] MEDS ORDERED: POTASSIUM CHLORIDE 20MEQ/PACKET PO NR (10:00)
[2019-12-25] MEDS: ACETAMINOPHEN 650MG/20.3ML UDC PO PRN ×2 (10:30→19:21)
[2019-12-25 11:33] LABS: BG BASE EXCESS -1.1 mmol/L (-2.0-2.0); BG CARBOXYHEMOGLOBIN 0.3 % (0.5-1.5); BG DEOXYHEMOGLOBIN 7.2 % (0.0-5.0); BG HCO3 ACT 22.1 mmol/L (22.0-26.0); BG METHEMOGLOBIN 0.3 % (0.0-1.5); BG OXYGEN SATURATION 92.8 % (92.0-98.5); BG OXYHEMOGLOBIN 92.2 % (94.0-97.0); BG PCO2 31.3 mmHg (35.0-45.0); BG PH 7.466 (7.350-7.450); BG PO2 64.7 mmHg (75.0-100.0); BG SAMPLE SITE RIGHT RADIAL; BG TIDAL VOLUME(mL) 500 mL; BG VENT MODE VENT - A/C; BG VENT RATE 20 set
[2019-12-25] MEDS ORDERED: POTASSIUM PHOS,M-BASIC-D-BASIC 30 MMOL in SODIUM CHLORIDE 0.9% 500 ML IV SCH (12:00)
[2019-12-25] MEDS ORDERED: MAGNESIUM 2 G PREMIX 50 ML IV SCH (12:00)
[2019-12-25] MEDS: LORAZEPAM 2MG/ML CPJ IV PRN ×3 (14:37→23:20)
[2019-12-25] MEDS: MIDAZOLAM HCL 100 MG in DEXT 5% WATER 80 ML IV PRN (20:27)
[2019-12-25] MEDS: FENTANYL CITRATE/PF 500 MCG in SODIUM CHLORIDE 0.9% 40 ML IV PRN (20:28)
[2019-12-25] MEDS: FAMOTIDINE 20MG TABLET PO SCH (21:48)
[2019-12-25] MEDS: DEXT 5%/0.9% NACL 1,000 ML IV SCH (23:41)
[2019-12-26] VITALS (99 sets, daily range): BP systolic 72–166; BP diastolic 36–116
[2019-12-26] MEDS: IPRATROPIUM/ALBUTEROL 0.5-3(2.5)MG/3ML NEB HHN SCH ×6 (00:47→20:19)
[2019-12-26] MEDS: ACETYLCYSTEINE 100MG/ML 10% VIAL 4ML INH SCH ×2 (00:47→10:22)
[2019-12-26] MEDS: DILTIAZEM HCL 60MG TABLET NG SCH ×3 (05:12→21:30)
[2019-12-26] MEDS: METOCLOPRAMIDE HCL 10MG/2ML VIAL IV SCH ×3 (05:12→17:25)
[2019-12-26] MEDS: LACTULOSE 20G/30ML UDC NG SCH ×3 (05:13→21:27)
[2019-12-26] MEDS: BLOOD SUGAR DIAGNOSTIC STRIP TEST SCH ×3 (05:13→17:19)
[2019-12-26] MEDS: LORAZEPAM 2MG/ML CPJ IV PRN (05:18)
[2019-12-26 05:37] LABS: BASOPHILS % 0.6 % (0.0-2.0); EOSINOPHILS % 0.3 % (0.0-5.0); HEMATOCRIT. 26.2 % (42.0-52.0); HEMOGLOBIN. 8.6 g/dL (14.0-18.0); LYMPHOCYTES % 18.1 % (20.0-50.0); MEAN CORPUSCULAR HEMOGLOBIN 28.8 pg (28.0-32.0); MEAN CORPUSCULAR VOLUME 88.4 fL (80.0-94.0); MEAN PLATELET VOLUME 9.1 fl (7.4-10.4); MONOCYTES % 4.8 % (2.0-8.0); NEUTROPHILS % 76.2 % (40.0-76.0); PLATELET 219 x1000/uL (130-400); RED BLOOD CELL COUNT 2.97 mill/uL (4.7-6.1); RED CELL DISTRIBUTION WIDTH 16.5 % (11.6-14.6)
[2019-12-26 05:50] LABS: CHLORIDE 117 mEq/L (98-107)
[2019-12-26 05:57] LABS: PHOSPHORUS 3.8 mg/dL (2.5-4.9)
[2019-12-26] MEDS: INSULIN LISPRO 100 UNITS/ML SUBCUT SCH ×3 (06:00→17:44)
[2019-12-26] MEDS: SIMETHICONE 80MG TABLET CHEW PO SCH ×4 (06:31→21:28)
[2019-12-26] MEDS: CALCIUM ACETATE 667 MG TABLET PO SCH ×3 (06:31→17:25)
[2019-12-26] MEDS: DEXT 5%/0.9% NACL 1,000 ML IV SCH (07:00)
[2019-12-26] MEDS ORDERED: PIPERACILLIN/TAZOBACTAM 2.25 G in DEXTROSE 5% WATER 50 ML IV SCH (09:30)
[2019-12-26] MEDS ORDERED: LORAZEPAM 2MG/ML CPJ IV PRN (09:45)
[2019-12-26] MEDS: LEVETIRACETAM 500MG/5ML CUP PO SCH ×2 (10:26→21:27)
[2019-12-26] MEDS: PANTOPRAZOLE SODIUM 40 MG/VIAL IV SCH (10:27)
[2019-12-26] MEDS: MIDODRINE HCL 5MG TABLET NG SCH ×2 (10:27→17:25)
[2019-12-26] MEDS: DOCUSATE SODIUM SUGAR FREE 100MG/10ML UDC NG SCH ×2 (10:27→17:25)
[2019-12-26] MEDS: FENTANYL CITRATE/PF 500 MCG in SODIUM CHLORIDE 0.9% 40 ML IV PRN ×2 (10:53→18:47)
[2019-12-26] MEDS: NOREPINEPHRINE 16 MG in DEXT 5% WATER 234 ML IV PRN (11:35)
[2019-12-26 11:51] LABS: BG BASE EXCESS 0.4 mmol/L (-2.0-2.0); BG CARBOXYHEMOGLOBIN 0.3 % (0.5-1.5); BG DEOXYHEMOGLOBIN 0.7 % (0.0-5.0); BG FRACTION INSPIRED OXYGEN 100; BG HCO3 ACT 24.8 mmol/L (22.0-26.0); BG METHEMOGLOBIN 0.3 % (0.0-1.5); BG OXYGEN SATURATION 99.3 % (92.0-98.5); BG OXYHEMOGLOBIN 98.7 % (94.0-97.0); BG PCO2 39.1 mmHg (35.0-45.0); BG PH 7.421 (7.350-7.450); BG PO2 313.5 mmHg (75.0-100.0); BG SAMPLE SITE RIGHT BRACHIAL; BG TIDAL VOLUME(mL) 500 mL; BG TOTAL HEMOGLOBIN 9.6 g/dL (12.0-18.0); BG VENT MODE VENT - A/C; BG VENT RATE 20 set
[2019-12-26] MEDS: METHYLPREDNISOLONE SOD SUCC 125 MG/2 ML VIAL IV SCH ×2 (13:41→21:27)
[2019-12-26] MEDS: PIPERACILLIN/TAZOBACTAM 2.25 G in DEXTROSE 5% WATER 50 ML IV SCH ×2 (13:52→21:30)
[2019-12-26] MEDS: DEXT 5%/0.45% NACL 1000ML 1,000 ML IV SCH (13:54)
[2019-12-26] MEDS ORDERED: VANCOMYCIN 2,000 MG in DEXT 5% WATER 500 ML IV SCH (14:00)
[2019-12-26] MEDS: SODIUM CHLORIDE 3% FOR INH 4ML UD NEB INH SCH (16:38)
[2019-12-26] MEDS: MIDAZOLAM HCL 100 MG in DEXT 5% WATER 80 ML IV PRN (18:48)
[2019-12-26] MEDS: FAMOTIDINE 20MG TABLET PO SCH (21:30)
[2019-12-27] VITALS (95 sets, daily range): BP systolic 63–138; BP diastolic 35–106
[2019-12-27] MEDS: BLOOD SUGAR DIAGNOSTIC STRIP TEST SCH ×4 (00:01→17:02)
[2019-12-27] MEDS: INSULIN LISPRO 100 UNITS/ML SUBCUT SCH ×4 (00:12→18:12)
[2019-12-27] MEDS: MIDODRINE HCL 5MG TABLET NG SCH ×3 (00:13→17:02)
[2019-12-27] MEDS: IPRATROPIUM/ALBUTEROL 0.5-3(2.5)MG/3ML NEB HHN SCH ×3 (00:27→08:27)
[2019-12-27] MEDS: SODIUM CHLORIDE 3% FOR INH 4ML UD NEB INH SCH (00:28)
[2019-12-27] MEDS: ACETYLCYSTEINE 100MG/ML 10% VIAL 4ML INH SCH ×2 (00:28→08:27)
[2019-12-27] MEDS: LACTULOSE 20G/30ML UDC NG SCH ×3 (06:27→21:26)
[2019-12-27] MEDS: DILTIAZEM HCL 60MG TABLET NG SCH ×3 (06:28→21:27)
[2019-12-27] MEDS: FENTANYL CITRATE/PF 500 MCG in SODIUM CHLORIDE 0.9% 40 ML IV PRN (06:30)
[2019-12-27] MEDS: SIMETHICONE 80MG TABLET CHEW PO SCH ×4 (06:30→20:26)
[2019-12-27] MEDS: CALCIUM ACETATE 667 MG TABLET PO SCH (06:31)
[2019-12-27] MEDS: PIPERACILLIN/TAZOBACTAM 2.25 G in DEXTROSE 5% WATER 50 ML IV SCH ×3 (06:32→21:27)
[2019-12-27] MEDS: METHYLPREDNISOLONE SOD SUCC 125 MG/2 ML VIAL IV SCH ×3 (06:32→21:27)
[2019-12-27 07:51] LABS: BG BASE EXCESS -1.4 mmol/L (-2.0-2.0); BG CARBOXYHEMOGLOBIN 0.3 % (0.5-1.5); BG DEOXYHEMOGLOBIN 3.8 % (0.0-5.0); BG FRACTION INSPIRED OXYGEN 40; BG HCO3 ACT 23.7 mmol/L (22.0-26.0); BG METHEMOGLOBIN 0.1 % (0.0-1.5); BG OXYGEN SATURATION 96.2 % (92.0-98.5); BG OXYHEMOGLOBIN 95.8 % (94.0-97.0); BG PCO2 41.1 mmHg (35.0-45.0); BG PH 7.378 (7.350-7.450); BG PO2 90.4 mmHg (75.0-100.0); BG SAMPLE SITE RIGHT BRACHIAL; BG TIDAL VOLUME(mL) 500 mL; BG TOTAL HEMOGLOBIN 10.1 g/dL (12.0-18.0); BG VENT MODE VENT - A/C; BG VENT RATE 20 set
[2019-12-27] MEDS ORDERED: LIDOCAINE HCL 1% 20ML VIAL (Pyxis) INJ ONE (08:05)
[2019-12-27] MEDS: IPRATROPIUM BROMIDE (0.02%) 0.5MG/2.5ML NEB HHN SCH ×3 (08:30→20:01)
[2019-12-27] MEDS: DOCUSATE SODIUM SUGAR FREE 100MG/10ML UDC NG SCH ×2 (09:02→17:01)
[2019-12-27] MEDS: LEVETIRACETAM 500MG/5ML CUP PO SCH ×2 (09:02→20:26)
[2019-12-27] MEDS: PANTOPRAZOLE SODIUM 40 MG/VIAL IV SCH (09:02)
[2019-12-27] MEDS: NOREPINEPHRINE 16 MG in DEXT 5% WATER 234 ML IV PRN (09:13)
[2019-12-27] MEDS ORDERED: HEPARIN 100 UNITS/1 ML VIAL IVF PRN (09:45)
[2019-12-27] MEDS ORDERED: NEOSTIGMINE METHYLSULFATE 1MG/ML 10 ML VIAL IV NR (09:45)
[2019-12-27] MEDS ORDERED: ATROPINE SULFATE 1MG/10ML SYR IV PRN (09:45)
[2019-12-27] MEDS ORDERED: NEOSTIGMINE METHYLSULFATE 1MG/ML 10 ML VIAL IM NR (10:00)
[2019-12-27 10:50] LABS: BASOPHILS % 0.3 % (0.0-2.0); EOSINOPHILS % 0.8 % (0.0-5.0); HEMATOCRIT. 26.7 % (42.0-52.0); HEMOGLOBIN. 8.7 g/dL (14.0-18.0); LYMPHOCYTES % 19.8 % (20.0-50.0); MEAN CORPUSCULAR HEMOGLOBIN 28.7 pg (28.0-32.0); MEAN CORPUSCULAR VOLUME 88.1 fL (80.0-94.0); MEAN PLATELET VOLUME 9.8 fl (7.4-10.4); MONOCYTES % 3.3 % (2.0-8.0); NEUTROPHILS % 75.8 % (40.0-76.0); PLATELET 249 x1000/uL (130-400); RED BLOOD CELL COUNT 3.03 mill/uL (4.7-6.1); RED CELL DISTRIBUTION WIDTH 17.3 % (11.6-14.6)
[2019-12-27] MEDS: DEXT 5%/0.45% NACL 1000ML 1,000 ML IV SCH (14:29)
[2019-12-27] MEDS: FAMOTIDINE 20MG TABLET PO SCH (20:26)
[2019-12-28] VITALS (76 sets, daily range): BP systolic 91–145; BP diastolic 41–93
[2019-12-28] MEDS: IPRATROPIUM BROMIDE (0.02%) 0.5MG/2.5ML NEB HHN SCH ×6 (00:11→20:19)
[2019-12-28] MEDS: ACETYLCYSTEINE 100MG/ML 10% VIAL 4ML INH SCH ×3 (00:11→15:49)
[2019-12-28] MEDS: BLOOD SUGAR DIAGNOSTIC STRIP TEST SCH ×5 (00:13→23:42)
[2019-12-28] MEDS: MIDODRINE HCL 5MG TABLET NG SCH ×3 (00:18→18:07)
[2019-12-28] MEDS: INSULIN LISPRO 100 UNITS/ML SUBCUT SCH ×4 (00:19→18:08)
[2019-12-28] MEDS: DEXT 5%/0.45% NACL 1000ML 1,000 ML IV SCH (03:54)
[2019-12-28 05:31] LABS: MEAN CORPUSCULAR HEMOGLOBIN 28.2 pg (28.0-32.0); MEAN PLATELET VOLUME 9.5 fl (7.4-10.4); PLATELET 274 x1000/uL (130-400); RED BLOOD CELL COUNT 3.19 mill/uL (4.7-6.1); RED CELL DISTRIBUTION WIDTH 17.8 % (11.6-14.6)
[2019-12-28 05:42] LABS: CHLORIDE 112 mEq/L (98-107)
[2019-12-28] MEDS: LACTULOSE 20G/30ML UDC NG SCH ×3 (05:47→21:13)
[2019-12-28] MEDS: DILTIAZEM HCL 60MG TABLET NG SCH ×3 (05:47→21:13)
[2019-12-28] MEDS: PIPERACILLIN/TAZOBACTAM 2.25 G in DEXTROSE 5% WATER 50 ML IV SCH (05:47)
[2019-12-28] MEDS: METHYLPREDNISOLONE SOD SUCC 125 MG/2 ML VIAL IV SCH (05:47)
[2019-12-28] MEDS: SIMETHICONE 80MG TABLET CHEW PO SCH ×4 (06:39→21:13)
[2019-12-28 08:02] LABS: BG BASE EXCESS -1.9 mmol/L (-2.0-2.0); BG CARBOXYHEMOGLOBIN 0.3 % (0.5-1.5); BG DEOXYHEMOGLOBIN 2.8 % (0.0-5.0); BG FRACTION INSPIRED OXYGEN 40; BG HCO3 ACT 22.5 mmol/L (22.0-26.0); BG METHEMOGLOBIN 0.3 % (0.0-1.5); BG OXYGEN SATURATION 97.2 % (92.0-98.5); BG OXYHEMOGLOBIN 96.6 % (94.0-97.0); BG PCO2 37.2 mmHg (35.0-45.0); BG PO2 98.4 mmHg (75.0-100.0); BG SAMPLE SITE RIGHT BRACHIAL; BG TIDAL VOLUME(mL) 500 mL; BG TOTAL HEMOGLOBIN 11.8 g/dL (12.0-18.0); BG VENT MODE VENT - A/C; BG VENT RATE 20 set
[2019-12-28] MEDS: PANTOPRAZOLE SODIUM 40 MG/VIAL IV SCH (08:41)
[2019-12-28] MEDS: LEVETIRACETAM 500MG/5ML CUP PO SCH ×2 (08:41→21:13)
[2019-12-28] MEDS ORDERED: NEOSTIGMINE METHYLSULFATE 1MG/ML 10 ML VIAL IM SCH (09:00)
[2019-12-28] MEDS: LEVOFLOXACIN 500MG PREMIX 100 ML IV SCH (10:37)
[2019-12-28] MEDS: METHYLPREDNISOLONE SOD SUCC 40 MG/ML VIAL IV SCH ×2 (10:38→18:08)
[2019-12-28 10:40] LABS: PLATELET ESTIMATE NORMAL
[2019-12-28 11:58] LABS: TOTAL IRON BINDING CAPACITY 138 ug/dL (250-450)
[2019-12-28] MEDS: LINEZOLID 600 MG PREMIX 300 ML IV SCH (14:38)
[2019-12-28] MEDS: FAMOTIDINE 20MG TABLET PO SCH (21:13)
[2019-12-29] VITALS (15 sets, daily range): BP systolic 96–130; BP diastolic 49–67
[2019-12-29] MEDS: ACETYLCYSTEINE 100MG/ML 10% VIAL 4ML INH SCH (01:01)
[2019-12-29] MEDS: IPRATROPIUM BROMIDE (0.02%) 0.5MG/2.5ML NEB HHN SCH ×4 (01:01→20:16)
[2019-12-29] MEDS: LINEZOLID 600 MG PREMIX 300 ML IV SCH ×2 (01:21→12:15)
[2019-12-29] MEDS: INSULIN LISPRO 100 UNITS/ML SUBCUT SCH ×4 (01:23→18:42)
[2019-12-29] MEDS: LACTULOSE 20G/30ML UDC NG SCH ×3 (06:05→21:28)
[2019-12-29] MEDS: DILTIAZEM HCL 60MG TABLET NG SCH ×3 (06:07→21:27)
[2019-12-29] MEDS: BLOOD SUGAR DIAGNOSTIC STRIP TEST SCH ×3 (06:07→18:28)
[2019-12-29 06:40] LABS: HEMATOCRIT. 24.6 % (42.0-52.0); MEAN CORPUSCULAR HEMOGLOBIN 28.4 pg (28.0-32.0); MEAN CORPUSCULAR VOLUME 87.2 fL (80.0-94.0); MEAN PLATELET VOLUME 9.2 fl (7.4-10.4); PLATELET 203 x1000/uL (130-400); RED BLOOD CELL COUNT 2.82 mill/uL (4.7-6.1); RED CELL DISTRIBUTION WIDTH 17.2 % (11.6-14.6)
[2019-12-29 06:53] LABS: PHOSPHORUS 3.8 mg/dL (2.5-4.9)
[2019-12-29] MEDS: PANTOPRAZOLE SODIUM 40 MG/VIAL IV SCH (09:20)
[2019-12-29] MEDS: METHYLPREDNISOLONE SOD SUCC 40 MG/ML VIAL IV SCH ×2 (09:20→16:53)
[2019-12-29] MEDS: SIMETHICONE 80MG TABLET CHEW PO SCH ×4 (09:26→21:27)
[2019-12-29] MEDS: LEVETIRACETAM 500MG/5ML CUP PO SCH ×2 (09:27→21:28)
[2019-12-29] MEDS: MIDODRINE HCL 5MG TABLET NG SCH ×3 (09:30→16:53)
[2019-12-29 12:21] LABS: NUCLEATED RED BLOOD CELLS 1 /100 WBC; PLATELET ESTIMATE NORMAL
[2019-12-29] MEDS: FAMOTIDINE 20MG TABLET PO SCH (21:27)
[2019-12-30] VITALS (13 sets, daily range): BP systolic 93–112; BP diastolic 46–66
[2019-12-30] MEDS: IPRATROPIUM BROMIDE (0.02%) 0.5MG/2.5ML NEB HHN SCH ×4 (00:08→20:35)
[2019-12-30] MEDS: ACETYLCYSTEINE 100MG/ML 10% VIAL 4ML INH SCH (00:08)
[2019-12-30] MEDS: MIDODRINE HCL 5MG TABLET NG SCH ×4 (00:31→23:52)
[2019-12-30] MEDS: LINEZOLID 600 MG PREMIX 300 ML IV SCH ×3 (00:31→23:51)
[2019-12-30] MEDS: BLOOD SUGAR DIAGNOSTIC STRIP TEST SCH ×5 (00:32→23:52)
[2019-12-30] MEDS: INSULIN LISPRO 100 UNITS/ML SUBCUT SCH ×5 (00:32→23:52)
[2019-12-30] MEDS: DILTIAZEM HCL 60MG TABLET NG SCH (06:00)
[2019-12-30] MEDS: LACTULOSE 20G/30ML UDC NG SCH ×3 (06:12→22:07)
[2019-12-30 07:05] LABS: HEMATOCRIT. 28.6 % (42.0-52.0); HEMOGLOBIN. 9.2 g/dL (14.0-18.0); MEAN CORPUSCULAR HEMOGLOBIN 28.7 pg (28.0-32.0); MEAN CORPUSCULAR VOLUME 88.7 fL (80.0-94.0); MEAN PLATELET VOLUME 9.8 fl (7.4-10.4); PLATELET 211 x1000/uL (130-400); RED BLOOD CELL COUNT 3.22 mill/uL (4.7-6.1); RED CELL DISTRIBUTION WIDTH 17.3 % (11.6-14.6)
[2019-12-30 07:11] LABS: CHLORIDE 104 mEq/L (98-107)
[2019-12-30 07:22] LABS: PHOSPHORUS 4.5 mg/dL (2.5-4.9)
[2019-12-30] MEDS: SIMETHICONE 80MG TABLET CHEW PO SCH ×4 (08:29→20:46)
[2019-12-30] MEDS: METHYLPREDNISOLONE SOD SUCC 40 MG/ML VIAL IV SCH ×2 (08:30→18:04)
[2019-12-30] MEDS: LEVETIRACETAM 500MG/5ML CUP PO SCH ×2 (08:30→20:46)
[2019-12-30] MEDS: PANTOPRAZOLE SODIUM 40 MG/VIAL IV SCH (08:30)
[2019-12-30] MEDS ORDERED: ROCURONIUM BROMIDE 10MG/ML VIAL 5ML IV ONE (10:57)
[2019-12-30] MEDS ORDERED: MIDAZOLAM HCL 2 MG/2 ML VIAL ONE (10:57)
[2019-12-30] MEDS ORDERED: BUPIVACAINE HCL 0.5% (5MG/ML) 50ML ONE (11:10)
[2019-12-30] MEDS: LEVOFLOXACIN 500MG PREMIX 100 ML IV SCH (12:35)
[2019-12-30] MEDS: DEXT 5%/0.45% NACL 1000ML 1,000 ML IV SCH (13:00)
[2019-12-30] MEDS: DILTIAZEM HCL 30MG TABLET NG SCH ×2 (14:00→22:06)
[2019-12-30 17:59] LABS: PLATELET ESTIMATE NORMAL
[2019-12-30] MEDS: FAMOTIDINE 20MG TABLET PO SCH (20:46)
[2019-12-31] VITALS (12 sets, daily range): BP systolic 105–144; BP diastolic 57–75
[2019-12-31] MEDS: IPRATROPIUM BROMIDE (0.02%) 0.5MG/2.5ML NEB HHN SCH ×7 (00:29→23:46)
[2019-12-31] MEDS: DILTIAZEM HCL 30MG TABLET NG SCH ×3 (05:28→21:41)
[2019-12-31] MEDS: INSULIN LISPRO 100 UNITS/ML SUBCUT SCH ×4 (05:29→23:58)
[2019-12-31] MEDS: LACTULOSE 20G/30ML UDC NG SCH ×2 (05:29→14:00)
[2019-12-31] MEDS: BLOOD SUGAR DIAGNOSTIC STRIP TEST SCH ×3 (05:29→17:54)
[2019-12-31 06:29] LABS: HEMATOCRIT. 29.5 % (42.0-52.0); HEMOGLOBIN. 9.4 g/dL (14.0-18.0); MEAN CORPUSCULAR HEMOGLOBIN 28.2 pg (28.0-32.0); MEAN CORPUSCULAR VOLUME 88.3 fL (80.0-94.0); MEAN PLATELET VOLUME 9.8 fl (7.4-10.4); PLATELET 215 x1000/uL (130-400); RED BLOOD CELL COUNT 3.33 mill/uL (4.7-6.1); RED CELL DISTRIBUTION WIDTH 16.9 % (11.6-14.6)
[2019-12-31] MEDS: ACETYLCYSTEINE 100MG/ML 10% VIAL 4ML INH SCH (07:43)
[2019-12-31] MEDS: METHYLPREDNISOLONE SOD SUCC 40 MG/ML VIAL IV SCH ×2 (08:15→16:53)
[2019-12-31] MEDS: SIMETHICONE 80MG TABLET CHEW PO SCH ×4 (08:15→21:40)
[2019-12-31] MEDS: MIDODRINE HCL 5MG TABLET NG SCH ×3 (08:15→23:59)
[2019-12-31] MEDS: LEVETIRACETAM 500MG/5ML CUP PO SCH ×2 (08:15→21:40)
[2019-12-31] MEDS: PANTOPRAZOLE SODIUM 40 MG/VIAL IV SCH (08:15)
[2019-12-31 08:17] LABS: PHOSPHORUS 4.8 mg/dL (2.5-4.9)
[2019-12-31] MEDS: LINEZOLID 600 MG PREMIX 300 ML IV SCH ×2 (11:43→23:58)
[2019-12-31 14:33] LABS: PLATELET ESTIMATE NORMAL
[2019-12-31] MEDS ORDERED: LORAZEPAM 2MG/ML CPJ IV PRN (21:15)
[2019-12-31] MEDS ORDERED: MORPHINE SULFATE 2 MG/ML CPJ (NOT FOR IM USE) IV PRN (21:15)
[2019-12-31] MEDS: FAMOTIDINE 20MG TABLET PO SCH (21:40)
[2019-12-31] MEDS: LATANOPROST 0.005% OPHTH DROPS 2.5ML BOTHEYE SCH (23:43)
[2020-01-01] VITALS (12 sets, daily range): BP systolic 88–125; BP diastolic 44–59
[2020-01-01] MEDS: IPRATROPIUM BROMIDE (0.02%) 0.5MG/2.5ML NEB HHN SCH ×5 (03:43→20:51)
[2020-01-01] MEDS: BRIMONIDINE 0.2% OPHTH DROPS 5ML BOTHEYE SCH ×3 (05:07→22:12)
[2020-01-01] MEDS: DILTIAZEM HCL 30MG TABLET NG SCH ×3 (05:07→22:00)
[2020-01-01] MEDS: INSULIN LISPRO 100 UNITS/ML SUBCUT SCH ×3 (05:26→17:33)
[2020-01-01] MEDS: DEXT 5%/0.45% NACL 1000ML 1,000 ML IV SCH (05:59)
[2020-01-01] MEDS: BLOOD SUGAR DIAGNOSTIC STRIP TEST SCH ×4 (06:00→17:19)
[2020-01-01 06:34] LABS: HEMATOCRIT. 27.9 % (42.0-52.0); HEMOGLOBIN. 9.1 g/dL (14.0-18.0); MEAN CORPUSCULAR HEMOGLOBIN 28.7 pg (28.0-32.0); MEAN CORPUSCULAR VOLUME 87.7 fL (80.0-94.0); MEAN PLATELET VOLUME 9.7 fl (7.4-10.4); PLATELET 190 x1000/uL (130-400); RED BLOOD CELL COUNT 3.18 mill/uL (4.7-6.1); RED CELL DISTRIBUTION WIDTH 16.9 % (11.6-14.6)
[2020-01-01] MEDS: MIDODRINE HCL 5MG TABLET NG SCH ×2 (08:00→16:13)
[2020-01-01 08:01] LABS: CHLORIDE 103 mEq/L (98-107)
[2020-01-01 08:07] LABS: PHOSPHORUS 5.2 mg/dL (2.5-4.9)
[2020-01-01] MEDS: PANTOPRAZOLE SODIUM 40 MG/VIAL IV SCH (08:17)
[2020-01-01] MEDS: SIMETHICONE 80MG TABLET CHEW PO SCH ×4 (08:17→22:12)
[2020-01-01] MEDS: METHYLPREDNISOLONE SOD SUCC 40 MG/ML VIAL IV SCH ×2 (08:18→16:13)
[2020-01-01] MEDS: LEVETIRACETAM 500MG/5ML CUP PO SCH ×2 (08:18→22:13)
[2020-01-01] MEDS: LEVOFLOXACIN 500MG PREMIX 100 ML IV SCH (11:20)
[2020-01-01] MEDS: LINEZOLID 600 MG PREMIX 300 ML IV SCH (12:28)
[2020-01-01] MEDS: METOCLOPRAMIDE HCL 10MG/2ML VIAL IV SCH (17:31)
[2020-01-01] MEDS ORDERED: ALBUMIN HUMAN 25GM/500ML (5%) IV NR ×2 (18:32→20:00)
[2020-01-01] MEDS: FAMOTIDINE 20MG TABLET PO SCH (22:12)
[2020-01-02] VITALS (16 sets, daily range): BP systolic 87–133; BP diastolic 34–59
[2020-01-02] MEDS: METOCLOPRAMIDE HCL 10MG/2ML VIAL IV SCH ×4 (00:24→23:35)
[2020-01-02] MEDS: BLOOD SUGAR DIAGNOSTIC STRIP TEST SCH ×4 (00:25→23:35)
[2020-01-02] MEDS: LINEZOLID 600 MG PREMIX 300 ML IV SCH ×3 (00:25→23:35)
[2020-01-02] MEDS: MIDODRINE HCL 5MG TABLET NG SCH ×4 (00:25→23:35)
[2020-01-02] MEDS: IPRATROPIUM BROMIDE (0.02%) 0.5MG/2.5ML NEB HHN SCH ×6 (00:39→20:03)
[2020-01-02] MEDS: INSULIN LISPRO 100 UNITS/ML SUBCUT SCH ×3 (00:47→17:41)
[2020-01-02 04:56] LABS: NUCLEATED RED BLOOD CELLS 1 /100 WBC; PLATELET ESTIMATE NORMAL
[2020-01-02] MEDS: DILTIAZEM HCL 30MG TABLET NG SCH ×3 (06:00→21:40)
[2020-01-02] MEDS: BRIMONIDINE 0.2% OPHTH DROPS 5ML BOTHEYE SCH ×3 (07:15→21:34)
[2020-01-02 08:55] LABS: HEMATOCRIT. 26.9 % (42.0-52.0); HEMOGLOBIN. 8.7 g/dL (14.0-18.0); MEAN CORPUSCULAR HEMOGLOBIN 28.6 pg (28.0-32.0); MEAN CORPUSCULAR VOLUME 88.2 fL (80.0-94.0); PLATELET 166 x1000/uL (130-400); RED BLOOD CELL COUNT 3.05 mill/uL (4.7-6.1); RED CELL DISTRIBUTION WIDTH 16.7 % (11.6-14.6)
[2020-01-02 09:12] LABS: PHOSPHORUS 5.1 mg/dL (2.5-4.9)
[2020-01-02] MEDS: PANTOPRAZOLE SODIUM 40 MG/VIAL IV SCH (10:52)
[2020-01-02] MEDS: SIMETHICONE 80MG TABLET CHEW PO SCH ×3 (10:52→21:33)
[2020-01-02] MEDS: LEVETIRACETAM 500MG/5ML CUP PO SCH ×2 (10:53→21:39)
[2020-01-02] MEDS: METHYLPREDNISOLONE SOD SUCC 40 MG/ML VIAL IV SCH ×2 (10:53→16:47)
[2020-01-02 11:37] LABS: PLATELET ESTIMATE NORMAL
[2020-01-02] MEDS: DEXT 5%/0.45% NACL 1000ML 1,000 ML IV SCH (13:00)
[2020-01-02] MEDS: FAMOTIDINE 20MG TABLET PO SCH (21:33)
[2020-01-02] MEDS: LATANOPROST 0.005% OPHTH DROPS 2.5ML BOTHEYE SCH (21:39)
[2020-01-03] VITALS (12 sets, daily range): BP systolic 89–102; BP diastolic 39–53
[2020-01-03] MEDS: INSULIN LISPRO 100 UNITS/ML SUBCUT SCH ×5 (00:17→23:36)
[2020-01-03] MEDS: IPRATROPIUM BROMIDE (0.02%) 0.5MG/2.5ML NEB HHN SCH ×6 (00:21→20:57)
[2020-01-03 05:37] LABS: HEMOGLOBIN. 8.9 g/dL (14.0-18.0); MEAN CORPUSCULAR HEMOGLOBIN 28.8 pg (28.0-32.0); MEAN CORPUSCULAR VOLUME 87.5 fL (80.0-94.0); MEAN PLATELET VOLUME 9.7 fl (7.4-10.4); PLATELET 171 x1000/uL (130-400); RED BLOOD CELL COUNT 3.09 mill/uL (4.7-6.1); RED CELL DISTRIBUTION WIDTH 16.9 % (11.6-14.6)
[2020-01-03] MEDS: DILTIAZEM HCL 30MG TABLET NG SCH ×3 (06:00→21:45)
[2020-01-03] MEDS: BLOOD SUGAR DIAGNOSTIC STRIP TEST SCH ×4 (06:31→23:26)
[2020-01-03] MEDS: BRIMONIDINE 0.2% OPHTH DROPS 5ML BOTHEYE SCH ×3 (06:34→21:46)
[2020-01-03] MEDS: METOCLOPRAMIDE HCL 10MG/2ML VIAL IV SCH ×4 (06:35→23:35)
[2020-01-03 07:19] LABS: PHOSPHORUS 5.4 mg/dL (2.5-4.9)
[2020-01-03] MEDS: LEVETIRACETAM 500MG/5ML CUP PO SCH ×2 (08:42→21:45)
[2020-01-03] MEDS: SIMETHICONE 80MG TABLET CHEW PO SCH ×4 (08:43→21:44)
[2020-01-03] MEDS: METHYLPREDNISOLONE SOD SUCC 40 MG/ML VIAL IV SCH ×2 (08:43→18:11)
[2020-01-03] MEDS: PANTOPRAZOLE SODIUM 40 MG/VIAL IV SCH (08:43)
[2020-01-03] MEDS: MIDODRINE HCL 5MG TABLET NG SCH ×3 (08:43→23:35)
[2020-01-03] MEDS: LEVOFLOXACIN 500MG PREMIX 100 ML IV SCH (11:03)
[2020-01-03] MEDS: LINEZOLID 600 MG PREMIX 300 ML IV SCH ×2 (12:23→23:35)
[2020-01-03 13:40] LABS: PLATELET ESTIMATE NORMAL
[2020-01-03] MEDS: FAMOTIDINE 20MG TABLET PO SCH (21:44)
[2020-01-03] MEDS: LATANOPROST 0.005% OPHTH DROPS 2.5ML BOTHEYE SCH (23:35)
[2020-01-04] VITALS (12 sets, daily range): BP systolic 100–130; BP diastolic 44–69
[2020-01-04] MEDS: IPRATROPIUM BROMIDE (0.02%) 0.5MG/2.5ML NEB HHN SCH ×4 (00:57→12:31)
[2020-01-04] MEDS: BLOOD SUGAR DIAGNOSTIC STRIP TEST SCH ×3 (05:02→16:39)
[2020-01-04] MEDS: DILTIAZEM HCL 30MG TABLET NG SCH ×2 (05:02→13:32)
[2020-01-04] MEDS: METOCLOPRAMIDE HCL 10MG/2ML VIAL IV SCH ×3 (05:31→16:40)
[2020-01-04] MEDS: BRIMONIDINE 0.2% OPHTH DROPS 5ML BOTHEYE SCH ×2 (05:31→13:36)
[2020-01-04] MEDS: INSULIN LISPRO 100 UNITS/ML SUBCUT SCH ×3 (05:32→17:09)
[2020-01-04 06:22] LABS: HEMATOCRIT. 27.8 % (42.0-52.0); HEMOGLOBIN. 9.1 g/dL (14.0-18.0); MEAN CORPUSCULAR HEMOGLOBIN 28.8 pg (28.0-32.0); MEAN CORPUSCULAR VOLUME 88.1 fL (80.0-94.0); MEAN PLATELET VOLUME 9.6 fl (7.4-10.4); PLATELET 156 x1000/uL (130-400); RED BLOOD CELL COUNT 3.15 mill/uL (4.7-6.1); RED CELL DISTRIBUTION WIDTH 17.6 % (11.6-14.6)
[2020-01-04 07:40] LABS: PHOSPHORUS 5.6 mg/dL (2.5-4.9)
[2020-01-04] MEDS: METHYLPREDNISOLONE SOD SUCC 40 MG/ML VIAL IV SCH ×2 (09:27→16:39)
[2020-01-04] MEDS: LEVETIRACETAM 500MG/5ML CUP PO SCH (09:28)
[2020-01-04] MEDS: PANTOPRAZOLE SODIUM 40 MG/VIAL IV SCH (09:28)
[2020-01-04] MEDS: SIMETHICONE 80MG TABLET CHEW PO SCH ×3 (09:28→16:39)
[2020-01-04] MEDS: MIDODRINE HCL 5MG TABLET NG SCH ×2 (09:28→16:39)
[2020-01-04] MEDS ORDERED: INSULIN GLARGINE UD 100 UNITS/ML SYR SUBCUT SCH ×2 (10:00→22:00)
[2020-01-04 11:40] LABS: BG BASE EXCESS -0.6 mmol/L (-2.0-2.0); BG CARBOXYHEMOGLOBIN 0.3 % (0.5-1.5); BG DEOXYHEMOGLOBIN 1.9 % (0.0-5.0); BG FRACTION INSPIRED OXYGEN 60; BG HCO3 ACT 23.2 mmol/L (22.0-26.0); BG METHEMOGLOBIN 0.2 % (0.0-1.5); BG OXYGEN SATURATION 98.1 % (92.0-98.5); BG OXYHEMOGLOBIN 97.6 % (94.0-97.0); BG PCO2 34.9 mmHg (35.0-45.0); BG PO2 133.1 mmHg (75.0-100.0); BG SAMPLE SITE RIGHT RADIAL; BG TIDAL VOLUME(mL) 500 mL; BG TOTAL HEMOGLOBIN 10.2 g/dL (12.0-18.0); BG VENT MODE VENT - A/C; BG VENT RATE 16 set
[2020-01-04] MEDS: LINEZOLID 600 MG PREMIX 300 ML IV SCH (11:40)
[2020-01-04] MEDS ORDERED: IPRATROPIUM/ALBUTEROL 0.5-3(2.5)MG/3ML NEB HHN PRN (14:15)
[2020-01-04] MEDS ORDERED: IPRATROPIUM/ALBUTEROL 0.5-3(2.5)MG/3ML NEB HHN SCH (16:00)
[2020-01-04 16:40] LABS: PLATELET ESTIMATE NORMAL
[2020-01-04] MEDS ORDERED: ACETYLCYSTEINE 100MG/ML 10% VIAL 4ML INH SCH (22:00)
== END 2020-01-04 20:45 | DRG 3 ==
LOC: ER 12:30 → 6EST 14:05 → UNDOADMIN 14:05 → ENRESERV 14:42 → UNDODISIN 11-15 16:00 → 6EST 11-15 16:37 → CVICU 11-17 11:13 → 6WST 11-20 12:50 → MICUSO 11-27 19:39 → 5EST 12-15 22:40 → MICUSO 12-22 11:45 → 5EST 12-28 23:39
PROVIDERS: ADMIT Internal Medicine; ATTEND Internal Medicine
PROC: 0QS704Z Reposition Left Upper Femur with Internal Fixation Device, Open Approach (ICD-10-PCS; principal; 2019-11-17)
PROC: 5A1955Z Respiratory Ventilation, Greater than 96 Consecutive Hours (ICD-10-PCS; 2019-11-27)
PROC: 0BH17EZ Insertion of Endotracheal Airway into Trachea, Via Natural or Artificial Opening (ICD-10-PCS; 2019-11-27)
PROC: 05HN33Z Insertion of Infusion Device into Left Internal Jugular Vein, Percutaneous Approach (ICD-10-PCS; 2019-11-30)
PROC: 30233N1 Transfusion of Nonautologous Red Blood Cells into Peripheral Vein, Percutaneous Approach (ICD-10-PCS; 2019-12-05)
PROC: 05HN33Z Insertion of Infusion Device into Left Internal Jugular Vein, Percutaneous Approach (ICD-10-PCS; 2019-12-07)
PROC: B544ZZA Ultrasonography of Left Jugular Veins, Guidance (ICD-10-PCS; 2019-12-07)
PROC: 0B110F4 Bypass Trachea to Cutaneous with Tracheostomy Device, Open Approach (ICD-10-PCS; 2019-12-10)
PROC: 0GTJ0ZZ Resection of Thyroid Gland Isthmus, Open Approach (ICD-10-PCS; 2019-12-10)
PROC: B544ZZA Ultrasonography of Left Jugular Veins, Guidance (ICD-10-PCS; 2019-12-10)
PROC: 06H03DZ Insertion of Intraluminal Device into Inferior Vena Cava, Percutaneous Approach (ICD-10-PCS; 2019-12-14)
PROC: B5191ZZ Fluoroscopy of Inferior Vena Cava using Low Osmolar Contrast (ICD-10-PCS; 2019-12-14)
PROC: 0B21XFZ Change Tracheostomy Device in Trachea, External Approach (ICD-10-PCS; 2019-12-17)
PROC: 02HV33Z Insertion of Infusion Device into Superior Vena Cava, Percutaneous Approach (ICD-10-PCS; 2019-12-22)
PROC: 0D9L80Z Drainage of Transverse Colon with Drainage Device, Via Natural or Artificial Opening Endoscopic (ICD-10-PCS; 2019-12-24)
PROC: 05H533Z Insertion of Infusion Device into Right Subclavian Vein, Percutaneous Approach (ICD-10-PCS; 2019-12-27)
PROC: B546ZZA Ultrasonography of Right Subclavian Vein, Guidance (ICD-10-PCS; 2019-12-27)
PROC: 0D1E0Z4 Bypass Large Intestine to Cutaneous, Open Approach (ICD-10-PCS; 2019-12-30)
DX: S72.142A Displaced intertrochanteric fracture of left femur, initial encounter for closed fracture (principal); A41.9 Sepsis, unspecified organism; J96.01 Acute respiratory failure with hypoxia; J69.0 Pneumonitis due to inhalation of food and vomit; G93.41 Metabolic encephalopathy; E43 Unspecified severe protein-calorie malnutrition; R65.21 Severe sepsis with septic shock; N17.0 Acute kidney failure with tubular necrosis; J15.1 Pneumonia due to Pseudomonas; I46.9 Cardiac arrest, cause unspecified; K56.7 Ileus, unspecified; I82.412 Acute embolism and thrombosis of left femoral vein; I67.82 Cerebral ischemia; G93.1 Anoxic brain damage, not elsewhere classified; E87.0 Hyperosmolality and hypernatremia; I13.0 Hypertensive heart and chronic kidney disease with heart failure and stage 1 through stage 4 chronic kidney disease, or unspecified chronic kidney disease; Z99.11 Dependence on respirator [ventilator] status; Z16.21 Resistance to vancomycin; N39.0 Urinary tract infection, site not specified; I48.92 Unspecified atrial flutter; I47.1 Supraventricular tachycardia; I42.9 Cardiomyopathy, unspecified; J98.11 Atelectasis; K56.49 Other impaction of intestine; T82.41XA Breakdown (mechanical) of vascular dialysis catheter, initial encounter; M10.9 Gout, unspecified; K29.70 Gastritis, unspecified, without bleeding; E66.01 Morbid (severe) obesity due to excess calories; E11.22 Type 2 diabetes mellitus with diabetic chronic kidney disease; E11.65 Type 2 diabetes mellitus with hyperglycemia; E78.00 Pure hypercholesterolemia, unspecified; E83.42 Hypomagnesemia; E87.6 Hypokalemia; N40.0 Benign prostatic hyperplasia without lower urinary tract symptoms; N18.9 Chronic kidney disease, unspecified; I27.20 Pulmonary hypertension, unspecified; I48.0 Paroxysmal atrial fibrillation; I49.1 Atrial premature depolarization; I50.9 Heart failure, unspecified; K56.41 Fecal impaction; R26.9 Unspecified abnormalities of gait and mobility; D64.9 Anemia, unspecified; W18.39XA Other fall on same level, initial encounter; Z68.34 Body mass index [BMI] 34.0-34.9, adult; Z79.899 Other long term (current) drug therapy; Z95.828 Presence of other vascular implants and grafts; Z87.01 Personal history of pneumonia (recurrent); Z86.73 Personal history of transient ischemic attack (TIA), and cerebral infarction without residual deficits; Z86.718 Personal history of other venous thrombosis and embolism; Z83.3 Family history of diabetes mellitus; Z79.4 Long term (current) use of insulin; Y93.89 Activity, other specified; Y92.89 Other specified places as the place of occurrence of the external cause; Y99.8 Other external cause status; B95.2 Enterococcus as the cause of diseases classified elsewhere; Y71.2 Prosthetic and other implants, materials and accessory cardiovascular devices associated with adverse incidents
CPT/HCPCS: 31500; 36415; 36580; 36600; 37191; 71045; 73501; 73502; 73560; 74018; 74176; 74250; 76000; 76770; 76937; 78580; 80048; 80053; 80076; 80202; 81003; 82270; 82375; 82805; 82962; 83540; 83550; 83605; 83735; 84100; 84132; 84134; 84145; 84443; 84478; 84484; 84550; 85014; 85018; 85025; 85027; 85379; 85384; 86705; 86709; 86803; 86850; 86900; 86920; 87070; 87077; 87186; 87340; 93005; 93306; 93970; 94002; 94003; 94640; 94667; 96361; 96374; 96375; 97110; 97162; 97164; 97166; 97530; 97535; 99285; A6261; C1713; C1725; C1752; C1769; C1880; C1893; C9113; J0461; J0690; J0692; J1100; J1170; J1200; J1265; J1642; J1644; J1650; J1815; J1885; J1953; J1956; J2020; J2060; J2175; J2250; J2270; J2370; J2405; J2543; J2704; J2710; J2765; J2920; J2930; J3010; J3370; J3475; J3480; J3490; J7030; J7040; J7042; J7050; J7060; J7070; J7608; P9016; P9041; P9047; Q9963; Q9967; A4315

== ENCOUNTER 2020-03-16 12:55 | Inpatient (IN) | payer MEDICARE, OTHER ==
[~2020-03-16] VITALS: Ht 177.8 cm; Wt 67.8 kg
[~2020-03-16 12:55] MED LIST: ALLO100T MT; BRIM5DRO EACHEYE; GLIP10TA10 MT; LINA5TAB MT; METF-816 MT; OLME1TAB82 MT; SIMV-46 MT; XALAO EACHEYE
[2020-03-16] MEDS ORDERED: SODIUM CHLORIDE 0.9% 1,000 ML IV ONE (14:05)
[2020-03-16] MEDS ORDERED: FAMOTIDINE 20MG/2ML VIAL IV STA (14:05)
[2020-03-16 14:35] LABS: PROTHROMBIN TIME 10.4 sec (9.6-11.0)
[2020-03-16 14:47] LABS: CHLORIDE 99 mEq/L (98-107)
[2020-03-16] MEDS ORDERED: PIPERACILLIN/TAZ 3.375G PREMIX 50 ML IV ONE (15:00)
[2020-03-16 15:38] LABS: HEMATOCRIT. 27.8 % (42.0-52.0); HEMOGLOBIN. 9.2 g/dL (14.0-18.0); MEAN CORPUSCULAR HEMOGLOBIN 30.1 pg (28.0-32.0); MEAN PLATELET VOLUME 7.7 fl (7.4-10.4); PLATELET 318 x1000/uL (130-400); RED BLOOD CELL COUNT 3.06 mill/uL (4.7-6.1)
[2020-03-16 16:30] LABS: PLATELET ESTIMATE NORMAL
[2020-03-16] MEDS: PANTOPRAZOLE SODIUM 40 MG/VIAL IV SCH (17:15)
[2020-03-16] MEDS: DEXT 5%/0.45% NACL 1000ML 1,000 ML IV SCH (17:36)
[2020-03-16] MEDS ORDERED: DIPHENHYDRAMINE 50MG/ML VIAL IV PRN (17:45)
[2020-03-16] MEDS ORDERED: ONDANSETRON HCL 4MG/2ML INJ IV PRN (17:45)
[2020-03-16] MEDS ORDERED: DEXTROSE 50% WATER 50ML SYRINGE IV PRN (17:45)
[2020-03-16] MEDS ORDERED: ACETAMINOPHEN 650MG/20.3ML UDC GT PRN ×2 (17:45)
[2020-03-16] MEDS: BLOOD SUGAR DIAGNOSTIC STRIP TEST SCH (18:00)
[2020-03-16 18:02] LABS: CLARITY URINE CLOUDY (CLEAR); COLOR URINE YELLOW (YELLOW); KETONES URINE NEGATIVE (NEGATIVE); LEUKOCYTE ESTERASE URINE 3+ (NEGATIVE); NITRITE URINE NEGATIVE (NEGATIVE); OCCULT BLOOD URINE NEGATIVE (NEGATIVE); PH URINE >=9.0 (4.5-8.0); PROTEIN URINE 1+ (NEGATIVE); SPECIFIC GRAVITY URINE 1.014 (1.005-1.030)
[2020-03-16] MEDS: INSULIN LISPRO 100 UNITS/ML SUBCUT SCH (18:59)
[2020-03-16] MEDS ORDERED: LEVOFLOXACIN 500MG PREMIX 100 ML IV NR (19:00)
[2020-03-16] MEDS ORDERED: LEVETIRACETAM 500MG PREMIX 100 ML IV NR (19:00)
[2020-03-16 20:49] LABS: HEMATOCRIT 32.2 % (42.0-52.0); HEMOGLOBIN 10.7 g/dL (14.0-18.0)
[2020-03-16] MEDS: LORAZEPAM 2MG/ML CPJ IV PRN (20:58)
[2020-03-17] MEDS: LATANOPROST 0.005% OPHTH DROPS 2.5ML BOTHEYE SCH ×2 (01:00→22:15)
[2020-03-17 01:07] LABS: HEMATOCRIT 27.2 % (42.0-52.0)
[2020-03-17] MEDS: LORAZEPAM 2MG/ML CPJ IV PRN ×2 (01:25→08:05)
[2020-03-17 04:21] LABS: BASOPHILS % 0.5 % (0.0-2.0); EOSINOPHILS % 0.3 % (0.0-5.0); HEMATOCRIT. 24.5 % (42.0-52.0); HEMOGLOBIN. 8.2 g/dL (14.0-18.0); LYMPHOCYTES % 8.7 % (20.0-50.0); MEAN CORPUSCULAR HEMOGLOBIN 30.9 pg (28.0-32.0); MEAN CORPUSCULAR VOLUME 92.1 fL (80.0-94.0); MEAN PLATELET VOLUME 8.1 fl (7.4-10.4); MONOCYTES % 6.2 % (2.0-8.0); NEUTROPHILS % 84.3 % (40.0-76.0); PLATELET 292 x1000/uL (130-400); RED BLOOD CELL COUNT 2.66 mill/uL (4.7-6.1); RED CELL DISTRIBUTION WIDTH 17.2 % (11.6-14.6)
[2020-03-17 04:36] LABS: CHLORIDE 103 mEq/L (98-107)
[2020-03-17 04:41] LABS: TOTAL IRON BINDING CAPACITY 131 ug/dL (250-450)
[2020-03-17 05:15] LABS: FERRITIN 539 ng/mL (22-322)
[2020-03-17 06:45] LABS: FOLIC ACID (FOLATE) SERUM > 20.00 ng/mL (>5.38)
[2020-03-17 06:53] LABS: VITAMIN B12 SERUM 1585 pg/mL (211-911)
[2020-03-17] MEDS ORDERED: LEVETIRACETAM 500MG PREMIX 100 ML IV SCH (09:00)
[2020-03-17] MEDS ORDERED: METHYLPREDNISOLONE SOD SUCC 40 MG/ML VIAL IV SCH (09:00)
[2020-03-17] MEDS ORDERED: LEVETIRACETAM 500 MG in SODIUM CHLORIDE 0.9% 100 ML IV SCH (09:00)
[2020-03-17] MEDS ORDERED: HALOPERIDOL LACTATE 5MG/ML VIAL IM ONE (09:15)
[2020-03-17] MEDS ORDERED: DIPHENHYDRAMINE 50MG/ML VIAL IV ONE (09:15)
[2020-03-17 10:05] VITALS: BP 111/78
[2020-03-17] MEDS: SUCRALFATE 1 G/10 ML UDC PEG SCH ×3 (10:30→22:17)
[2020-03-17] MEDS: PANTOPRAZOLE SODIUM 40 MG/VIAL IV SCH ×2 (10:45→17:17)
[2020-03-17 12:00] VITALS: BP 130/66
[2020-03-17] MEDS: INSULIN LISPRO 100 UNITS/ML SUBCUT SCH ×2 (12:00→17:18)
[2020-03-17] MEDS: BLOOD SUGAR DIAGNOSTIC STRIP TEST SCH ×2 (12:00→17:17)
[2020-03-17] MEDS: INSULIN GLARGINE UD 100 UNITS/ML SYR SUBCUT SCH ×2 (12:00→22:51)
[2020-03-17] MEDS: LEVETIRACETAM 500MG PREMIX 100 ML IV SCH ×2 (13:03→22:15)
[2020-03-17] MEDS: DEXT 5%/0.45% NACL 1000ML 1,000 ML IV SCH (13:18)
[2020-03-17] MEDS ORDERED: DEXT 5%/0.45% NACL 1000ML 1,000 ML IV SCH (13:30)
[2020-03-17] MEDS ORDERED: KCL 20MEQ/100ML PREMIX 100 ML IV SCH (14:00)
[2020-03-17] MEDS: LEVOFLOXACIN 500MG PREMIX 100 ML IV SCH (15:15)
[2020-03-17 16:00] VITALS: BP 123/68
[2020-03-17 20:00] VITALS: BP 120/71
[2020-03-17 22:04] LABS: HEMATOCRIT 25.8 % (42.0-52.0); HEMOGLOBIN 8.4 g/dL (14.0-18.0)
[2020-03-18] VITALS (23 sets, daily range): BP systolic 42–144; BP diastolic 23–97
[2020-03-18] MEDS: SUCRALFATE 1 G/10 ML UDC PEG SCH ×2 (05:09→10:43)
[2020-03-18] MEDS: INSULIN LISPRO 100 UNITS/ML SUBCUT SCH ×4 (06:00→17:20)
[2020-03-18] MEDS: BLOOD SUGAR DIAGNOSTIC STRIP TEST SCH ×4 (06:00→17:20)
[2020-03-18] MEDS: LEVETIRACETAM 500MG PREMIX 100 ML IV SCH (09:18)
[2020-03-18] MEDS: PANTOPRAZOLE SODIUM 40 MG/VIAL IV SCH ×2 (09:18→17:24)
[2020-03-18 09:53] LABS: BASOPHILS % 0.2 % (0.0-2.0); HEMATOCRIT. 23.6 % (42.0-52.0); HEMOGLOBIN. 7.9 g/dL (14.0-18.0); MEAN CORPUSCULAR HEMOGLOBIN 30.6 pg (28.0-32.0); MEAN CORPUSCULAR VOLUME 91.6 fL (80.0-94.0); MEAN PLATELET VOLUME 8.2 fl (7.4-10.4); MONOCYTES % 7.2 % (2.0-8.0); NEUTROPHILS % 84.6 % (40.0-76.0); PLATELET 291 x1000/uL (130-400); RED BLOOD CELL COUNT 2.58 mill/uL (4.7-6.1); RED CELL DISTRIBUTION WIDTH 16.9 % (11.6-14.6)
[2020-03-18] MEDS ORDERED: INSULIN GLARGINE UD 100 UNITS/ML SYR SUBCUT SCH (11:00)
[2020-03-18] MEDS: LEVOFLOXACIN 500MG PREMIX 100 ML IV SCH (13:02)
[2020-03-18] MEDS ORDERED: POTASSIUM CHLORIDE 20MEQ/PACKET PO SCH (14:30)
[2020-03-18] MEDS ORDERED: SODIUM CHLORIDE 0.9% 500 ML IV ONE ×2 (18:15→20:00)
[2020-03-18 18:55] LABS: BG BASE EXCESS 0.4 mmol/L (-2.0-2.0); BG CARBOXYHEMOGLOBIN 0.3 % (0.5-1.5); BG DEOXYHEMOGLOBIN 6.4 % (0.0-5.0); BG FRACTION INSPIRED OXYGEN 100; BG HCO3 ACT 21.4 mmol/L (22.0-26.0); BG METHEMOGLOBIN 0.2 % (0.0-1.5); BG OXYGEN SATURATION 93.6 % (92.0-98.5); BG OXYHEMOGLOBIN 93.1 % (94.0-97.0); BG PCO2 23.6 mmHg (35.0-45.0); BG PH 7.575 (7.350-7.450); BG PO2 66.2 mmHg (75.0-100.0); BG SAMPLE SITE RIGHT RADIAL; BG TIDAL VOLUME(mL) 500 mL; BG TOTAL HEMOGLOBIN 10.2 g/dL (12.0-18.0); BG VENT MODE VENT - A/C; BG VENT RATE 14 set
[2020-03-18] MEDS ORDERED: PROPOFOL 10MG/ML 100ML 100 ML IV PRN (19:30)
[2020-03-18] MEDS ORDERED: VASOPRESSIN 10 UNIT in SODIUM CHLORIDE 0.9% 99.5 ML IV PRN (19:30)
[2020-03-18] MEDS ORDERED: NOREPINEPHRINE 32 MG in DEXT 5% WATER 468 ML IV PRN (19:30)
[2020-03-18] MEDS ORDERED: PHENYLEPHRINE 40 MG in DEXT 5% WATER 246 ML IV PRN (19:30)
[2020-03-18] MEDS ORDERED: MEROPENEM-0.9% SODIUM CHLORIDE 50 ML IV SCH (20:00)
[2020-03-18] MEDS ORDERED: MEROPENEM 1000MG in NORMAL SALINE 100ML IV SCH (20:00)
[2020-03-18] MEDS ORDERED: MEROPENEM 1,000 MG in SODIUM CHLORIDE 0.9% 100 ML IV SCH (20:00)
[2020-03-18 20:22] LABS: HEMATOCRIT 29.7 % (42.0-52.0); HEMOGLOBIN 9.5 g/dL (14.0-18.0); MEAN CORPUSCULAR HEMOGLOBIN 30.3 pg (28.0-32.0); MEAN CORPUSCULAR VOLUME 94.9 fL (80.0-94.0); PLATELET 323 x1000/uL (130-400); RED BLOOD CELL COUNT 3.13 mill/uL (4.7-6.1)
[2020-03-18] MEDS ORDERED: DOPAMINE 400MG/250ML PREMIX 250 ML IV ONE (20:40)
[2020-03-18] MEDS ORDERED: DOPAMINE 400MG/250ML PREMIX 250 ML IV PRN (20:45)
== END 2020-03-18 21:15 | disposition expired | DRG 871 ==
LOC: ER 12:55 → 7EST 13:54 → EDBD 13:54 → EDBEDREQTM 15:44 → ENRESERV 03-17 07:08 → 7EST 03-17 20:41 → CVICU 03-18 18:23
PROVIDERS: ADMIT Internal Medicine; ATTEND Internal Medicine
PROC: 5A1935Z Respiratory Ventilation, Less than 24 Consecutive Hours (ICD-10-PCS; principal; 2020-03-18)
PROC: 5A12012 Performance of Cardiac Output, Single, Manual (ICD-10-PCS; 2020-03-18)
PROC: 0B21XFZ Change Tracheostomy Device in Trachea, External Approach (ICD-10-PCS; 2020-03-18)
PROC: 05HY33Z Insertion of Infusion Device into Upper Vein, Percutaneous Approach (ICD-10-PCS; 2020-03-18)
PROC: B54NZZA Ultrasonography of Left Upper Extremity Veins, Guidance (ICD-10-PCS; 2020-03-18)
DX: A41.9 Sepsis, unspecified organism (principal); E43 Unspecified severe protein-calorie malnutrition; J69.0 Pneumonitis due to inhalation of food and vomit; J96.00 Acute respiratory failure, unspecified whether with hypoxia or hypercapnia; J15.1 Pneumonia due to Pseudomonas; K29.01 Acute gastritis with bleeding; N17.9 Acute kidney failure, unspecified; J44.0 Chronic obstructive pulmonary disease with (acute) lower respiratory infection; N39.0 Urinary tract infection, site not specified; G93.1 Anoxic brain damage, not elsewhere classified; I50.22 Chronic systolic (congestive) heart failure; K56.7 Ileus, unspecified; Z99.11 Dependence on respirator [ventilator] status; Z16.21 Resistance to vancomycin; I13.0 Hypertensive heart and chronic kidney disease with heart failure and stage 1 through stage 4 chronic kidney disease, or unspecified chronic kidney disease; J95.03 Malfunction of tracheostomy stoma; J20.9 Acute bronchitis, unspecified; E87.6 Hypokalemia; D72.810 Lymphocytopenia; I25.10 Atherosclerotic heart disease of native coronary artery without angina pectoris; I27.20 Pulmonary hypertension, unspecified; I48.91 Unspecified atrial fibrillation; F41.9 Anxiety disorder, unspecified; Z20.828 Contact with and (suspected) exposure to other viral communicable diseases; M10.9 Gout, unspecified; N40.0 Benign prostatic hyperplasia without lower urinary tract symptoms; D50.0 Iron deficiency anemia secondary to blood loss (chronic); N18.9 Chronic kidney disease, unspecified; E11.22 Type 2 diabetes mellitus with diabetic chronic kidney disease; I46.9 Cardiac arrest, cause unspecified; Y83.8 Other surgical procedures as the cause of abnormal reaction of the patient, or of later complication, without mention of misadventure at the time of the procedure; Z87.01 Personal history of pneumonia (recurrent); Z86.718 Personal history of other venous thrombosis and embolism; Z93.1 Gastrostomy status; Z93.3 Colostomy status; Z95.828 Presence of other vascular implants and grafts; Y92.89 Other specified places as the place of occurrence of the external cause; I25.2 Old myocardial infarction
CPT/HCPCS: 36415; 36600; 71045; 80048; 80053; 81003; 82270; 82375; 82607; 82728; 82746; 82805; 82962; 83036; 83540; 83550; 83735; 84100; 84484; 85014; 85018; 85025; 85027; 86850; 86900; 87635; 99291; C9113; J1200; J1265; J1630; J1815; J1953; J1956; J2060; J2185; J2543; J2920; J3480; J7030; J7050